=== PATIENT | male | born 1960 | race Caucasian/White ===

== ENCOUNTER 2017-03-30 06:51 | Inpatient (IN) ==
[2017-03-30] MEDS ORDERED: 0.9 % Sodium Chloride 1,000 ML IVC ONE (06:58)
[2017-03-30] MEDS ORDERED: 0.9 % Sodium Chloride 1,000 ML ONE (07:00)
[2017-03-30] MEDS ORDERED: Pantoprazole 40 MG VIAL IVP ONE (07:03)
[2017-03-30] MEDS ORDERED: Octreotide 50 MCG/ML SYRINGE IVP ONE (07:07)
[2017-03-30] MEDS: Pantoprazole 40 MG in 0.9 % Sodium Chloride Mini Bag 100 ML IVC SCH ×4 (07:09→22:09)
--- NOTE | 2017-03-30 07:13 | Emergency Department Note ---
START Narrative - START START: I examined this patient and my medical decision-making was reviewed with the Resident Physician. I agree with the documented findings, disposition and treatment plan as described except to the extent set forth below. Patient to ED vomiting bright red blood. Onset around 4 AM this morning. History of a similar episode a couple of months ago where he had a scope and was found to have varices. On examination he is awake alert no distress. He was found hypotensive by EMS, however he is normotensive here with a systolic blood pressure 110. Plan. Labs type and cross. Will discuss with GI. Admit. Patient's hemoglobin was 7. Requiring blood transfusion. Hemodynamically stable. Discussed with GI who plans to scope. Patient admitted to hospitalist. 40 minutes of critical care exclusive of separately billable procedures.
[2017-03-30] MEDS ORDERED: Ondansetron 4 MG/2 ML VIAL IVP ONE (07:27)
--- NOTE | 2017-03-30 07:27 | Emergency Department Note ---
Disposition Clinical Impression: Upper GI bleeding Syncope Qualifiers: Syncope type: unspecified Qualified Code(s): R55 - Syncope and collapse Disposition: Admitted As Inpatient Condition: Fair Referrals: NONE,PCP [Non-Partnered Physician] - Forms: ED Satisfaction Letter General Adult HPI - General Chief complaint: ED Nausea/Vomiting/Diarrhea Stated complaint: vomiting blood Time Seen by Provider: 03/30/17 06:56 Source: patient, family, EMS Limitations: no limitations Nursing Notes Reviewed: Yes Vital Signs Reviewed: Yes - History of Present Illness HPI Narrative: Patient here for evaluation of hematemesis. 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 Patient's episode began at 3 AM. Patient has had 4 episodes of bright red blood. Patient had 2 episodes which she describes as having clots. Patient has had recent alcohol and NSAID use. NSAIDs secondary to over- the-counter cold medicine. Patient describes dark stools which have been related to previous GI bleed as well as recent iron supplement use. Initial blood pressure from the squad was 86/40. Repeat blood pressure shows 113/80. Heart rate of 86. Patient in no acute distress. Patient has had no episodes of vomiting in the emergency department during initial evaluation. No abdominal tenderness. Some mild abdominal ecchymosis without history of injections however he did have a recent hospital stay - consistent with subcutaneous injection. No abdominal tenderness. Pain Scale: 0 - Related Data Home Medications Medication Instructions Recorded Confirmed Ferrous Fumarate [Ferrocite] 324 mg PO DAILY 03/30/17 03/30/17 Previous Rx's Medication Instructions Recorded Folic Acid 1 mg PO DAILY #30 tablet 01/29/17 Multivitamin [Multivitamins] 1 each PO DAILY #30 capsule 01/29/17 Omeprazole [PriLOSEC] 40 mg PO DAILY #60 cap 01/29/17 Thiamine (B-1) [Vitamin B-1] 100 mg PO DAILY #30 tablet 01/29/17 Allergies Allergy/AdvReac Type Severity Reaction Status Date / Time No Known Allergies Allergy Verified 11/12/15 17:00 Review of Systems: CONSTITUTIONAL: No weight loss, fever, chills, weakness or fatigue. HEENT: Eyes: No visual changes. Ears, Nose, Throat: No hearing loss, difficulty talking or unable to swallow. SKIN: No rash or itching. CARDIOVASCULAR: Syncope No chest pain, chest pressure or chest discomfort. No palpitations or edema. RESPIRATORY: No shortness of breath, cough or sputum. GASTROINTESTINAL: GI bleeding No anorexia, nausea, vomiting or diarrhea. No abdominal pain GENITOURINARY: No burning on urination or hematuria. NEUROLOGICAL: No headache, dizziness, syncope, paralysis, ataxia, numbness or tingling in the extremities. No change in bowel or bladder control. MUSCULOSKELETAL: No muscle pain, back pain, joint pain or stiffness. Past Medical History - Past Medical History Medical history: Reports: CVA, hypertension Psychiatric history: Reports: no psych history - Social History Smoking Status: Current every day smoker Smokeless Tobacco Status: No Alcohol use: Reports: heavy, recent Drug use: Reports: none Physical Exam General appearance: NAD, conversant Eyes: Pale, jaundice, moist conjunctivae; PERRL HENT: Atraumatic; oropharynx clear with moist mucous membranes and no mucosal ulcerations Neck: Normal inspection; Trachea midline; FROM, supple Lungs: CTA, with normal respiratory effort and no intercostal retractions CV: RRR, no MRGs Abdomen: Soft, non-tender; no rebound or gaurding Extremities: No peripheral edema or extremity lymphadenopathy Skin: Normal temperature; no rash, ulcers or lesions Psych: Appropriate mood and affect Neuro: alert and oriented to person, place and time - General Limitations: no limitations General appearance: alert, in no apparent distress Course Course Narrative: Patient states that he had a syncopal episode where he felt like he was going to pass out. He hit his head on the wall on the way down. Describes sliding down the wall. CT scan of head ordered. - Consultations Consultation #1: Discussed with Dr. Farooq. Recommends Ocreotide bolus and drip. Recommends Rocephin 1 g. Vital Signs Temperature 97.7 F 03/30/17 06:54 Pulse Rate 94 03/30/17 06:54 Respiratory Rate 18 03/30/17 06:54 Blood Pressure 105/68 03/30/17 06:54 O2 Sat by Pulse Oximetry 99 03/30/17 06:54 Temperature 97.7 F 03/30/17 06:54 Pulse Rate 88 03/30/17 08:32 Respiratory Rate 18 03/30/17 08:32 Blood Pressure 117/62 03/30/17 08:32 O2 Sat by Pulse Oximetry 100 03/30/17 08:32 Oxygen Delivery Oxygen Delivery Nasal Cannula Medical Decision Making - Medical Records Medical records reviewed: Yes I reviewed the patient's medical records. - Lab Data Lab results reviewed: Yes I reviewed the patient's lab results. Result diagrams: 03/30/17 07:15 03/30/17 07:15 Lab Results 03/30/17 03/30/17 03/30/17 Range/Units 07:15 07:15 07:15 WBC 7.7 (4.3-11.1) K/mcL RBC 2.32 L (4.19-5.50) M/mcL Hgb 7.5 L (12.9-16.9) g/dL Hct 24.4 L (37.5-50.1) % MCV 105.2 H (83.0-100.0) fL MCH 32.3 (28.0-33.3) pg MCHC 30.7 L (31.6-35.5) g/dL RDW 14.6 H (11.5-14.5) % Plt Count 103 L (140-400) K/mcL MPV 11.1 (9.4-12.4) fL Immature Gran % 0.4 (0-4) % Seg Neutrophils % 83.9 % Lymphocytes % 8.8 % Monocytes % 5.2 % Eosinophils % 0.9 % Basophils % 0.8 % Neutrophils # 6.5 (1.6-8.9) K/mcL Lymphocytes # 0.7 (0.6-4.6) K/mcL Monocytes # 0.4 (0.0-1.3) K/mcL Eosinophils # 0.1 (0.0-0.6) K/mcL Basophils # 0.1 (0.0-0.2) K/mcL Immature Plt Fraction 6.7 H (1.1-6.1) % PT 14.4 H (9.4-12.1) Seconds INR 1.3 APTT 29.1 (26.0-36.0) Seconds Sodium 142 (136-145) mEq/L Potassium 3.8 (3.5-4.5) mEq/L Chloride 113 H (98-109) mEq/L Carbon Dioxide 18 L (19-29) mEq/L BUN 28 H (8-26) mg/dL Creatinine 1.12 (0.72-1.25) mg/dL Est GFR ( Amer) > 60 (> 60) Est GFR (Non-Af Amer) > 60 (> 60) BUN/Creatinine Ratio 25 (6-26) Glucose 219 H (70-99) mg/dL Calculated Osmolality 306 H (280-300) Calcium 7.9 L (8.6-10.8) mg/dL Total Bilirubin 0.7 (0.2-1.2) mg/dL Direct Bilirubin 0.4 (0.0-0.5) mg/dL Indirect Bilirubin 0.3 (0.0-1.2) mg/dL AST 94 H (5-34) Units/L ALT 33 (0-55) Units/L Alkaline Phosphatase 145 H (38-126) Units/L Serum Total Protein 5.8 L (6.0-8.3) g/dL Albumin 2.4 L (3.5-5.0) g/dL Globulin 3.4 (2.4-3.5) g/dL Albumin/Globulin Ratio 0.7 L (1.1-2.2) Lipase 35 (8-78) Units/L Ethyl Alcohol 31 H (0-10) mg/dL - Radiology Data Radiology results reviewed: Yes I reviewed the patient's radiology results. - EKG Data EKG #1 EKG attestation: Yes I reviewed and interpreted this EKG. EKG results narrative: EKG shows sinus rhythm with ventricular rate of 87 bpm. SD 134. QRS 90. QTC 447. The significant elevations or depressions. No significant changes from previous EKG of 01/26/2017.
[2017-03-30 07:28] LABS: Eosinophils % 0.9 %; Mean Corpuscular Volume 105.2 fL (83.0-100.0)
[2017-03-30 07:29] LABS: Basophils # 0.1 K/mcL (0.0-0.2); Basophils % 0.8 %; Eosinophils # 0.1 K/mcL (0.0-0.6); Hematocrit 24.4 % (37.5-50.1); Immature Granulocytes % 0.4 % (0-4); Immature Platelets 6.7 % (1.1-6.1); Lymphocytes # 0.7 K/mcL (0.6-4.6); Lymphocytes % 8.8 %; Mean Corpuscular HGB Conc 30.7 g/dL (31.6-35.5); Mean Corpuscular Hemoglobin 32.3 pg (28.0-33.3); Mean Platelet Volume 11.1 fL (9.4-12.4); Monocytes # 0.4 K/mcL (0.0-1.3); Monocytes % 5.2 %; Neutrophils # 6.5 K/mcL (1.6-8.9); Platelet Count 103 K/mcL (140-400); Red Blood Count 2.32 M/mcL (4.19-5.50); Red Cell Distribution Width 14.6 % (11.5-14.5); Segmented Neutrophils % 83.9 %
[2017-03-30 07:35] LABS: INR 1.3; Prothrombin Time 14.4 Seconds (9.4-12.1)
[2017-03-30 07:37] LABS: Activated Partial Thrombo Time 29.1 Seconds (26.0-36.0)
[2017-03-30 07:45] LABS: Alanine Aminotransferase 33 Units/L (0-55); Albumin 2.4 g/dL (3.5-5.0); Albumin/Globulin Ratio 0.7 (1.1-2.2); Alkaline Phosphatase 145 Units/L (38-126); Aspartate Amino Transferase 94 Units/L (5-34); BUN/Creatinine Ratio 25 (6-26); Bilirubin,Direct 0.4 mg/dL (0.0-0.5); Bilirubin,Indirect 0.3 mg/dL (0.0-1.2); Bilirubin,Total 0.7 mg/dL (0.2-1.2); Blood Urea Nitrogen 28 mg/dL (8-26); Calcium 7.9 mg/dL (8.6-10.8); Carbon Dioxide 18 mEq/L (19-29); Chloride 113 mEq/L (98-109); Ethanol 31 mg/dL (0-10); Globulin 3.4 g/dL (2.4-3.5); Glucose 219 mg/dL (70-99); Lipase 35 Units/L (8-78); Osmolality,Calculated 306 (280-300); Potassium 3.8 mEq/L (3.5-4.5); Sodium 142 mEq/L (136-145); Total Protein 5.8 g/dL (6.0-8.3); eGFR For African Americans > 60 (> 60); eGFR For Non-African Americans > 60 (> 60)
[2017-03-30] MEDS: Octreotide 400 MCG in 0.9 % Sodium Chloride 100 ML IVC SCH ×2 (07:50→16:59)
[2017-03-30 07:54] LABS: Hemoglobin 7.5 g/dL (12.9-16.9)
[2017-03-30] MEDS ORDERED: Naloxone 0.4 MG/ML INJ IVP PRN (08:30)
[2017-03-30] MEDS ORDERED: *HR* LORazepam 2 MG/ML VIAL IVP PRN ×3 (08:35)
--- NOTE | 2017-03-30 09:03 | Internal Med History&Physical ---
Date of Encounter: 03/30/17 Time of Encounter: 08:00 Assessment and Plan (1) Alcoholism Current visit: Yes Status: Acute Will place patient on CIWA protocol. Banana bag IV daily 3 days. (2) DVT prophylaxis Current visit: Yes Status: Acute EPCD (3) Acute blood loss anemia Current visit: No Status: Acute Will give patient 2 units blood transfusion as he has active bleeding. (4) Upper GI bleed Current visit: No Status: Acute Due to cirrhosis and esophageal vein varicosis. - Nothing by mouth. - Vitals are stable now. Will closely monitor vitals every 30 minutes. - IV fluid. - Blood transfusion for 2 units ordered. - Protonix drip, octreotide drip started. - Continuous cardiac monitoring. - Closely monitor H&H. - GI consult informed by ER physician. (5) Liver cirrhosis, alcoholic Current visit: No Status: Acute Continue alcoholism protocol Qualifiers: Ascites presence: without ascites Qualified Code(s): K70.30 - Alcoholic cirrhosis of liver without ascites (6) Tobacco abuse Current visit: No Status: Acute Smoking cessation education. Nicotine patch ordered Internal Medicine - H&P: HPI Chief complaint: Vomiting blood Admitted From: Home Plans for Post Hospital Care: Home History of present illness: Mr. Mcdowell is a 57 year old male with history of alcoholic cirrhosis, esophageal veins varicosis, history of GI bleeding present to ER for vomiting blood since this morning. Patient said he has noticed black stool for about 3 days. He thought that due to the iron pill he is taking. This morning about the 3:30 AM, he started nausea and vomited fresh blood. He vomited 4 times at home, and 1 time in the emergency room. Patient feels dizziness when he stand up. He denies abdominal pain, chest pain. He has mild shortness of breath. He has diarrhea, 3 bowel movement in last 24 hours, stool is dark. I discussed the CODE STATUS with patient. He is full code. Past Med Surg Social Fam HX - Past Medical History Medical history: CVA, hypertension Psychiatric history: no psych history - Social History Smoking Status: Current every day smoker Smokeless Tobacco Status: No Alcohol use: heavy, recent Drug use: none Internal Medicine - H&P: Meds Folic Acid 1 mg PO DAILY #30 tablet 01/29/17 [Rx] Multivitamin [Multivitamins] 1 each PO DAILY #30 capsule 01/29/17 [Rx] Omeprazole [PriLOSEC] 40 mg PO DAILY #60 cap 01/29/17 [Rx] Thiamine (B-1) [Vitamin B-1] 100 mg PO DAILY #30 tablet 01/29/17 [Rx] Ferrous Fumarate [Ferrocite] 324 mg PO DAILY 03/30/17 [History] 3 Allergy/AdvReac Type Severity Reaction Status Date / Time No Known Allergies Allergy Verified 11/12/15 17:00 All Systems PM: A 10-system review of systems was performed and is negative for pertinent findings except as documented above in the HPI. - Constitutional Vitals: Temp Pulse Resp BP Pulse Ox 97.7 F 88 18 117/62 100 03/30/17 06:54 03/30/17 08:32 03/30/17 08:32 03/30/17 08:32 03/30/17 08:32 General appearance: Present: A&O X 3, no acute distress, answers questions appropriately - Head Head exam: Present: atraumatic, normocephalic - Eye Eye exam: Present: PERRL, conjuntiva pink, sclera anicteric Pupils: Present: PERRL - Neck Neck exam general surgery: Present: supple, trachea midline. Absent: lymphadenopathy - Respiratory Respiratory exam: Present: CTAB. Absent: accessory muscle use, rales, rhonchi, wheezes - Cardiovascular Cardiovascular exam: Present: RRR, +S1, +S2. Absent: diastolic murmur, gallop, rubs, systolic murmur - GI/Abdominal GI/Abdominal exam: Present: normal bowel sounds, soft, no peritoneal signs. Absent: distended, tenderness - Extremities Exam Extremities exam: Present: warm, radial pulses palpable and symmetrical. Absent : calf tenderness, cyanotic, pedal edema - Neurological Exam Neurological exam: Present: CN II-XII intact, oriented X3, no focal deficits. Absent: pronater drift, facial droop, speech deficit - Skin Skin exam: Present: dry, intact Internal Med - H&P Results - Labs CBC & Chem 7: 03/30/17 07:15 03/30/17 07:15 Labs: Short CBC 03/30/17 Range/Units 07:15 WBC 7.7 (4.3-11.1) K/mcL Hgb 7.5 L (12.9-16.9) g/dL Hct 24.4 L (37.5-50.1) % Plt Count 103 L (140-400) K/mcL Neutrophils # 6.5 (1.6-8.9) K/mcL BMP 03/30/17 07:15 Sodium 142 Potassium 3.8 Chloride 113 H Carbon Dioxide 18 L BUN 28 H Creatinine 1.12 Glucose 219 H Calcium 7.9 L Liver Function 03/30/17 Range/Units 07:15 Total Bilirubin 0.7 (0.2-1.2) mg/dL Direct Bilirubin 0.4 (0.0-0.5) mg/dL AST 94 H (5-34) Units/L ALT 33 (0-55) Units/L Alkaline Phosphatase 145 H (38-126) Units/L Albumin 2.4 L (3.5-5.0) g/dL - Impressions ITS Impressions Head CT 03/30/17 07:04 IMPRESSION: No acute intracranial abnormality. Small old lacunar infarcts versus prominent perivascular spaces in the bilateral basal ganglia, stable. Mild parenchymal volume loss. Mild chronic microvascular disease. Sinus mucosal disease. D/ / Ga Guerrier MD / Ga Guerrier MD Interpreting Provider: Ga Guerrier MD
--- NOTE | 2017-03-30 11:27 | Gastroenterology Consult Note ---
<Dustin Casillas - Last Filed: 03/30/17 11:24> Date of Encounter: 03/30/17 Time of Encounter: 11:00 - Assessment and plan (1) Anemia Current Visit: No Status: Acute Assessment and plan: Hgb 7.5 on admission and 2 units PRBC have been ordered. Monitor CBC and transfuse PRBC as needed. Plan for EGD today. Keep patient NPO. Qualifiers: Anemia type: unspecified type Qualified Code(s): D64.9 - Anemia, unspecified (2) Upper GI bleed Current Visit: No Status: Acute Assessment and plan: Likely secondary to varices. EGD 01/28/2017 with type I gastroesophageal varices without bleeding. Will complete EGD today. (3) Liver cirrhosis, alcoholic Current Visit: No Status: Acute Assessment and plan: Meld-Na 10, Child-Alexandre class B, DF 18.6. Liver ultrasound on 01/27/2017 showed cirrhosis and no mass. AFP 4 on 01/27/2017. Lifestyle Changes: 1. Total abstinence from alcohol including social drinking. 2. No smoking 3. Gradual loss of weight 4. Drink at least 3 cups of coffee due to its antioxidant effects in the liver, it reduces risk of HCC and advance fibrosis 5. If needed, use less than 2 g/day of Tylenol (in divided doses). 6. Vaccination for Hep A, B, Pneumococcus if not already received and yearly influenza vaccination by PCP 7. Avoid NSAIDS as can cause kidney damage 8. Avoid benzodiazepines and other sedatives such as anti-histamines, narcotics etc. as can cause encephalopathy or confusion 9. Take a late carbohydrate meal supplement as it reduces glucose production from protein breakdown and thus improves nutrition. Qualifiers: Ascites presence: without ascites Qualified Code(s): K70.30 - Alcoholic cirrhosis of liver without ascites - Time Spent With Patient Total time spent is greater than 50% in coordination of care (as documented) at patient's floor/unit and/or counseling patient: GI History of Present Illness - Data of Consult Patient: known to practice within the last 3 years Consult date: 03/30/17 Requesting Physician: Tucker Galicia MD - Consult Narrative Reason for consult: Upper GI bleed, cirrhosis History of present illness: Mr. Mcdowell is a 57 year old male with PMHx of CVA, HTN, alcoholic liver cirrhosis who drinks 3-4 glasses of wine 3-4 days per week presented to the ED vomiting blood since this morning. He reports black stool for the past 3-4 days , which he attributed to the iron pill he is taking. Around 3:30 AM he started vomiting bright red blood. He vomited 4 times at home and one time in the ED. He denies fevers, chills, chest pain, abdominal pain. Patient states he has been taking Aleve daily for the past week due to a "cold". Hgb 7.5 on admission and 2 units PRBC have been ordered. Octreotide drip has been started. Procedures: EGD 01/28/2017 Dr. 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 Campos 02/09/2014: Tubular adenoma descending colon, internal hemorrhoids, mild diverticulosis EGD 01/15/2014 Dr. Beal: Monilial esophagitis, gastritis NSAIDs: None Anticoagulation: None Past Med Surg Social Fam HX - Past Medical History Medical history: CVA, hypertension Psychiatric history: no psych history - Social History Smoking Status: Current every day smoker Smokeless Tobacco Status: No Alcohol use: heavy, recent Drug use: none - Gastrointestinal Gastrointestinal: Present: as per HPI - Constitutional Constitutional: as per HPI - EENT Eyes: as per HPI Ears: Present: as per HPI Nose, mouth and throat: Present: as per HPI - Cardiovascular Cardiovascular ROS: Present: as per HPI - Respiratory Respiratory IM: Present: as per HPI - Genitourinary Genitourinary: Absent: change in color, Urinary frequency - Neurological ROS Neurological GI: Present: as per HPI - Hematologic/Lymphatic Hematologic/Lymphatic pediatric: Present: as per HPI - Musculoskeletal Musculoskeletal ROS GI: Present: as per HPI - Integumentary Integumentary GI: Present: as per HPI - Psychiatric ROS Psychiatric GI: Present: as per HPI - Endocrine Endocrine IM: Present: as per HPI - Constitutional Vitals: Temp Pulse Resp BP Pulse Ox 98.5 F 82 18 128/71 100 03/30/17 10:43 03/30/17 11:00 03/30/17 10:43 03/30/17 11:00 03/30/17 11:00 General appearance: Present: cooperative, A&O X 3, no acute distress, answers questions appropriately - Head Head exam: Present: atraumatic, normocephalic - Eye Eye exam: Present: normal appearance, sclera anicteric - ENT ENT exam: Present: mucous membranes dry - Neck Neck exam general surgery: Present: normal inspection, trachea midline - Respiratory Respiratory exam: Present: CTAB. Absent: rales, rhonchi - Cardiovascular Cardiovascular exam: Present: RRR, +S1, +S2 - GI/Abdominal GI/Abdominal exam: Present: soft, no peritoneal signs. Absent: distended, firm , guarding, tenderness - Rectal Rectal exam: Present: deferred - Extremities Exam Extremities exam: Present: warm - Neurological Exam Neurological exam: Present: no focal deficits - Psychiatric Psychiatric exam: Present: normal affect, normal mood - Skin Skin exam: Present: dry, intact, normal color, warm Results - Labs CBC & Chem 7: 03/30/17 07:15 03/30/17 07:15 Labs: Last Result Calcium 7.9 mg/dL (8.6-10.8) L 03/30/17 07:15 Entire Visit Hgb 7.5 g/dL (12.9-16.9) L 03/30/17 07:15 Hct 24.4 % (37.5-50.1) L 03/30/17 07:15 PT 14.4 Seconds (9.4-12.1) H 03/30/17 07:15 Total Bilirubin 0.7 mg/dL (0.2-1.2) 03/30/17 07:15 AST 94 Units/L (5-34) H 03/30/17 07:15 ALT 33 Units/L (0-55) 03/30/17 07:15 Lipase 35 Units/L (8-78) 03/30/17 07:15 - ABG ABG results: PT/INR, D-dimer PT 14.4 Seconds (9.4-12.1) H 03/30/17 07:15 Consult Discharge Plan - Plan Referrals: Miguel Khan DO [Primary Care Provider] - <Chad Farooq - Last Filed: 03/30/17 17:08> Date of Encounter: 03/30/17 Time of Encounter: 17:00 - Time Spent With Patient Total time spent is greater than 50% in coordination of care (as documented) at patient's floor/unit and/or counseling patient: GI History of Present Illness - Data of Consult Requesting Physician: Tucker Galicia MD - Consult Narrative History of present illness: Mr. Mcdowell is a 57 year old male - Constitutional Vitals: Temp Pulse Resp BP Pulse Ox 98.5 F 71 18 135/70 98 03/30/17 16:25 03/30/17 16:25 03/30/17 16:25 03/30/17 16:25 03/30/17 16:25 Results - Labs CBC & Chem 7: 03/30/17 07:15 03/30/17 07:15 Labs: Last Result Calcium 7.9 mg/dL (8.6-10.8) L 03/30/17 07:15 Entire Visit Hgb 7.5 g/dL (12.9-16.9) L 03/30/17 07:15 Hct 24.4 % (37.5-50.1) L 03/30/17 07:15 PT 14.4 Seconds (9.4-12.1) H 03/30/17 07:15 Total Bilirubin 0.7 mg/dL (0.2-1.2) 03/30/17 07:15 AST 94 Units/L (5-34) H 03/30/17 07:15 ALT 33 Units/L (0-55) 03/30/17 07:15 Lipase 35 Units/L (8-78) 03/30/17 07:15 - ABG ABG results: PT/INR, D-dimer PT 14.4 Seconds (9.4-12.1) H 03/30/17 07:15 - Attending Attestation I examined this patient and my medical decision-making was reviewed with the Resident Physician. I agree with the documented findings, disposition and treatment plan as described except to the extent set forth below. Pt with Hx of gastric varices now with UGI bleed. Rec; Follow h/H Octreotide infusion If any bleeding from gastric varices then will need TIP/embolization
[2017-03-30] MEDS: Nicotine 21 MG PATCH.TD24 TD SCH (11:52)
--- NOTE | 2017-03-30 12:13 | Anesthesia Evaluation PreOp ---
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 History: CVA Other Medical History: Hepatic (alcoholic liver cirrhosis), GERD, Other ( esophageal varices) Anesthesia History: No Prior Anesthetic Complications, Past Anesthesia Alcohol Use: heavy, recent Drug use: none Medications and Allergies Folic Acid 1 mg PO DAILY #30 tablet 01/29/17 [Rx] Multivitamin [Multivitamins] 1 each PO DAILY #30 capsule 01/29/17 [Rx] Omeprazole [PriLOSEC] 40 mg PO DAILY #60 cap 01/29/17 [Rx] Thiamine (B-1) [Vitamin B-1] 100 mg PO DAILY #30 tablet 01/29/17 [Rx] Ferrous Fumarate [Ferrocite] 324 mg PO DAILY 03/30/17 [History] 3 Allergy/AdvReac Type Severity Reaction Status Date / Time No Known Allergies Allergy Verified 11/12/15 17:00 - Meds/Allergy Pre-op Review Medications Reviewed: Yes Allergies Reviewed: Yes Beta Blockers on Current Med List: No Anesthesia Results - Labs 03/30/17 07:15 03/30/17 07:15 - Imaging EKG: report reviewed (01/26/2017 SR) Additional studies: 02/09/2014 Echo Impressions: LVEF 65%. Normal left ventricular size, thickness and systolic function. There is evidence of mild diastolic dysfunction of the left ventricle. Normal left atrial size. Mildly dilated right ventricle. Normal right ventricular function. Normal right atrial size. No significant valvular dysfunction. No significant TR gradient to detect pumonary hypertension. The IVC is dilated. No PFO with agitated saline. Anesthesia Exam Vital Signs/O2 Sat/Glucose, Most Recent Temp Pulse Resp BP Pulse Ox 98.5 F 82 18 128/71 100 03/30/17 10:43 03/30/17 11:00 03/30/17 10:43 03/30/17 11:00 03/30/17 11:00 Blood Glucose* 148 Height: 5'9''/1.75 m Weight: 186 lbs/84.368 kg NPO (# of Hours): 8 Pain Scale: 0 Pain Scale Used: Numeric (1 - 10) - HEENT Pupil (Motor): EOMI Mallampati: II Teeth: Normal Oral Opening: Greater than 3 - ALLOCATIONS CLERK LOC: Oriented ALLOCATIONS CLERK Motor: Normal RUE, Normal LUE, Normal RLE, Normal LLE, Normal Face ALLOCATIONS CLERK Sensory: Normal: RUE, LUE, RLE, LLE, Face - Cardiac Rhythm: Regular Murmur: None - Pulmonary Breath Sounds: bilateral Clear Respiratory Effort: Symmetrical Anesthesia Assess/Plan ASA Score: 3 Modified [place] Scale for Level of Consciousness: Cooperative, oriented, and tranquil Anesthetic Plan: MAC Monitoring Plan: Standard Monitors
[2017-03-30] MEDS ORDERED: 0.9 % Sodium Chloride 250 ML ONE (14:00)
[2017-03-30] MEDS: Ondansetron 4 MG/2 ML VIAL IVP PRN (16:31)
[2017-03-30] MEDS ORDERED: *HR* FentaNYL (PF) 100 MCG/2 ML VIAL IVP PRN (17:05)
[2017-03-30] MEDS ORDERED: *HR* Midazolam HCl 5 MG/5 ML VIAL IVP ONE (17:07)
[2017-03-30] MEDS ORDERED: *HR* FentaNYL (PF) 100 MCG/2 ML VIAL ONE (17:08)
[2017-03-30] MEDS: *HR* Midazolam HCl 5 MG/5 ML VIAL IVP PRN ×2 (17:11→17:14)
[2017-03-30] MEDS: 0.9 % Sodium Chloride 1,000 ML IVC SCH ×2 (18:11→21:40)
[2017-03-30] MEDS: Thiamine (B-1) 100 MG, Folic Acid 1 MG, MVI, adult with vitamin K 10 ML in 0.9 % Sodi... IVPB SCH (20:39)
[2017-03-30] MEDS: *HR* Promethazine 25 MG/ML VIAL IVP PRN (22:08)
[2017-03-30 22:45] LABS: Hematocrit 28.9 % (37.5-50.1)
[2017-03-30 22:46] LABS: Hemoglobin 9.2 g/dL (12.9-16.9)
[2017-03-31] MEDS: Octreotide 400 MCG in 0.9 % Sodium Chloride 100 ML IVC SCH ×3 (00:13→17:08)
[2017-03-31] MEDS: 0.9 % Sodium Chloride 1,000 ML IVC SCH ×3 (02:50→18:40)
[2017-03-31] MEDS: Pantoprazole 40 MG in 0.9 % Sodium Chloride Mini Bag 100 ML IVC SCH ×4 (03:24→18:39)
[2017-03-31 05:34] LABS: BUN/Creatinine Ratio 28 (6-26); Blood Urea Nitrogen 25 mg/dL (8-26); Calcium 7.8 mg/dL (8.6-10.8); Carbon Dioxide 23 mEq/L (19-29); Chloride 115 mEq/L (98-109); Glucose 135 mg/dL (70-99); Magnesium 1.5 mg/dL (1.6-2.6); Osmolality,Calculated 300 (280-300); Phosphorous 2.7 mg/dL (2.3-4.7); Potassium 4.2 mEq/L (3.5-4.5); Sodium 142 mEq/L (136-145); eGFR For African Americans > 60 (> 60); eGFR For Non-African Americans > 60 (> 60)
[2017-03-31 06:48] LABS: Basophils # 0.1 K/mcL (0.0-0.2); Eosinophils # 0.2 K/mcL (0.0-0.6); Eosinophils % 3.4 %; Hemoglobin 8.8 g/dL (12.9-16.9); Immature Granulocytes % 0.2 % (0-4); Immature Platelets 6.7 % (1.1-6.1); Lymphocytes # 1.2 K/mcL (0.6-4.6); Lymphocytes % 23.4 %; Mean Corpuscular HGB Conc 31.4 g/dL (31.6-35.5); Mean Corpuscular Hemoglobin 31.7 pg (28.0-33.3); Mean Corpuscular Volume 100.7 fL (83.0-100.0); Mean Platelet Volume 10.9 fL (9.4-12.4); Monocytes # 0.6 K/mcL (0.0-1.3); Monocytes % 10.8 %; Neutrophils # 3.2 K/mcL (1.6-8.9); Red Blood Count 2.78 M/mcL (4.19-5.50); Red Cell Distribution Width 16.5 % (11.5-14.5); Segmented Neutrophils % 61.2 %
--- NOTE | 2017-03-31 06:50 | Electrocardiograph Report ---
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
[2017-03-31 06:53] LABS: Platelet Count 77 K/mcL (140-400)
[2017-03-31] MEDS ORDERED: Erythromycin Lactobionate 250 MG in 0.9 % Sodium Chloride 100 ML IVPB ONE (08:30)
--- NOTE | 2017-03-31 09:56 | Anesthesia Evaluation PreOp ---
Date of Encounter: 03/31/17 Time of Encounter: 09:53 - Past History Planned Operation: EGD (upper GI bleed, hx gastric varices) Cardiac History: HTN (? 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 yesterday's EGD exam was poor due to copious blood in stomach) Anesthesia History: No Prior Anesthetic Complications Alcohol Use: heavy, recent Drug use: none Medications and Allergies Folic Acid 1 mg PO DAILY #30 tablet 01/29/17 [Rx] Multivitamin [Multivitamins] 1 each PO DAILY #30 capsule 01/29/17 [Rx] Omeprazole [PriLOSEC] 40 mg PO DAILY #60 cap 01/29/17 [Rx] Thiamine (B-1) [Vitamin B-1] 100 mg PO DAILY #30 tablet 01/29/17 [Rx] Ferrous Fumarate [Ferrocite] 324 mg PO DAILY 03/30/17 [History] 3 Allergy/AdvReac Type Severity Reaction Status Date / Time No Known Allergies Allergy Verified 11/12/15 17:00 - Meds/Allergy Pre-op Review Medications Reviewed: Yes Allergies Reviewed: Yes Beta Blockers on Current Med List: No Anesthesia Results - Labs 03/31/17 06:37 03/31/17 05:13 - Imaging EKG: report reviewed, image reviewed (SINUS RHYTHM) Anesthesia Exam Last Vital Signs Temp 98.6 F 03/31/17 07:35 Pulse 73 03/31/17 07:40 Resp 18 03/31/17 07:00 BP 127/78 03/31/17 07:00 Pulse Ox 94 03/31/17 07:00 Weight: 85 KG NPO (# of Hours): >> 8 HRS - HEENT Pupil (Motor): Pupils equal, EOMI Mallampati: II Teeth: Normal Oral Opening: Greater than 3 - 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
[2017-03-31] MEDS ORDERED: Lidocaine -MPF 2% 2 ML VIAL ONE (14:11)
[2017-03-31] MEDS ORDERED: Propofol 500 MG/50 ML INFUS..BTL ONE (14:11)
[2017-03-31] MEDS: Nicotine 21 MG PATCH.TD24 TD SCH (14:46)
--- NOTE | 2017-03-31 15:10 | Anesthesia Evaluation Post Op ---
Date of Encounter: 03/31/17 Time of Encounter: 15:08 - Vital Signs Vital Signs: see ICU flow charts. - Airway Airway: Non-obstructed - Cardiovascular Baseline Rhythm - Mental Status Mental Status: Alert & Oriented, Answers Appropriately - Pain Pain Scale used: Cortez-Mahmood (Faces) - Nausea Vomiting Nausea Vomiting: Not Present
[2017-03-31] MEDS ORDERED: Tetracaine/Benzocaine/Butamben 200MG/SPRAY (100SPY/BOT) MM ONE (15:21)
--- NOTE | 2017-03-31 17:39 | Internal Med Progress Note ---
Date of Encounter: 04/01/17 Time of Encounter: 17:37 - Assessment and plan (1) Acute blood loss anemia Current Visit: No Status: Acute Assessment and plan: s/p 2 U PRBC..Hb @ 8.8 now cont close monitoring Q8hr Hb / Hct Cont IV hydration (2) Upper GI bleed Current Visit: No Status: Acute Assessment and plan: s/p EGD - showed portal hypertensive gastropathy no esophageal varices noticed continue Octreotide gtt Cont Protonix gtt on clear liquid diet now NPO after mid night GI is on board Scheduled for IR hemostasis in AM (3) Portal hypertensive gastropathy Current Visit: Yes Status: Acute (4) Portal venous hypertension Current Visit: Yes Status: Acute (5) Alcohol dependence Current Visit: Yes Status: Acute Assessment and plan: Counseled to quit drinking will place him on Banana bag daily cont CIWA protocol Ativan PRN Qualifiers: Qualified Code(s): F10.221 - Alcohol dependence with intoxication delirium (6) Liver cirrhosis, alcoholic Current Visit: No Status: Acute Assessment and plan: Counseled to quit drinking cont close monitoring of his LFT's Qualifiers: Ascites presence: without ascites Qualified Code(s): K70.30 - Alcoholic cirrhosis of liver without ascites (7) Tobacco abuse Current Visit: No Status: Acute Assessment and plan: Counseled to quit on nicotine patch - Subjective Interval history: Mr. Mcdowell is a 57 year old male with history of alcoholic cirrhosis, esophageal veins varicosis, history of GI bleeding present to ER for vomiting blood since this morning. Patient said he has noticed black stool for about 3 days. He thought that due to the iron pill he is taking. This morning about the 3:30 AM, he started nausea and vomited fresh blood. He vomited 4 times at home, and 1 time in the emergency room. Pt was admitted to ICU for severe acute GI bleed and acute alcohol intoxication. Currently he is alert, awake and resting comfortably. Denied any CP. Started tolerating clear liquid diet well. - Constitutional Vitals: Temp Pulse Resp BP Pulse Ox 98.5 F 80 20 105/61 98 03/31/17 11:33 03/31/17 15:00 03/31/17 15:00 03/31/17 15:00 03/31/17 15:00 General appearance: Present: A&O X 3, no acute distress, answers questions appropriately - Head Head exam: Present: atraumatic, normal inspection - Respiratory Respiratory exam: Present: decreased breath sounds, wheezes. Absent: respiratory distress, rhonchi - Cardiovascular Cardiovascular exam: Present: RRR, +S1, +S2. Absent: systolic murmur - GI/Abdominal GI/Abdominal exam: Present: soft. Absent: rebound, rigid, tenderness - Extremities Exam Extremities exam: Absent: calf tenderness, pedal edema, tenderness - Neurological Exam Neurological exam: Present: alert, oriented X3 - Psychiatric Psychiatric exam: Present: anxious Internal Medicine: Result - Labs CBC & Chem 7: 04/01/17 04:20 04/01/17 04:20 Labs: Short CBC 03/30/17 03/31/17 Range/Units 22:38 06:37 WBC 5.3 (4.3-11.1) K/mcL Hgb 9.2 L D 8.8 L (12.9-16.9) g/dL Hct 28.9 L 28.0 L (37.5-50.1) % Plt Count 77 L (140-400) K/mcL Neutrophils # 3.2 (1.6-8.9) K/mcL BMP 03/31/17 05:13 Sodium 142 Potassium 4.2 Chloride 115 H Carbon Dioxide 23 BUN 25 Creatinine 0.89 Glucose 135 H Calcium 7.8 L - ABG Interpretation ABG results: PT/INR, D-dimer PT 14.4 Seconds (9.4-12.1) H 03/30/17 07:15 - VTE Documentation of Mechanical Device: Intermittent pneumatic compression device Consult Discharge Plan - Plan Referrals: Miguel Khan DO [Primary Care Provider] -
[2017-03-31 18:17] LABS: Hemoglobin 9.4 g/dL (12.9-16.9)
[2017-03-31] MEDS: Thiamine (B-1) 100 MG, Folic Acid 1 MG, MVI, adult with vitamin K 10 ML in 0.9 % Sodi... IVPB SCH (18:48)
[2017-04-01] MEDS: Pantoprazole 40 MG in 0.9 % Sodium Chloride Mini Bag 100 ML IVC SCH ×4 (00:17→16:14)
[2017-04-01] MEDS: Octreotide 400 MCG in 0.9 % Sodium Chloride 100 ML IVC SCH ×4 (01:09→18:16)
[2017-04-01] MEDS: 0.9 % Sodium Chloride 1,000 ML IVC SCH ×3 (02:40→17:10)
[2017-04-01] MEDS ORDERED: Magnesium Sulfate 2 GM in D5% in Water 100 ML IVPB PRN (03:27)
[2017-04-01] MEDS ORDERED: Calcium Gluconate 1,000 MG in D5% in Water 100 ML IVPB PRN (03:27)
[2017-04-01] MEDS ORDERED: Potassium Phosphate 44 MEQ in 0.9 % Sodium Chloride 250 ML IVPB PRN (03:27)
[2017-04-01 04:32] LABS: Immature Granulocytes % 0.2 % (0-4)
[2017-04-01 04:34] LABS: Basophils # 0.1 K/mcL (0.0-0.2); Basophils % 1.7 %; Eosinophils # 0.2 K/mcL (0.0-0.6); Eosinophils % 3.9 %; Hematocrit 27.6 % (37.5-50.1); Hemoglobin 8.8 g/dL (12.9-16.9); Immature Platelets 8.2 % (1.1-6.1); Lymphocytes # 1.1 K/mcL (0.6-4.6); Lymphocytes % 24.1 %; Mean Corpuscular HGB Conc 31.9 g/dL (31.6-35.5); Mean Corpuscular Hemoglobin 31.8 pg (28.0-33.3); Mean Corpuscular Volume 99.6 fL (83.0-100.0); Mean Platelet Volume 11.4 fL (9.4-12.4); Monocytes # 0.6 K/mcL (0.0-1.3); Neutrophils # 2.7 K/mcL (1.6-8.9); Red Blood Count 2.77 M/mcL (4.19-5.50); Red Cell Distribution Width 15.7 % (11.5-14.5); Segmented Neutrophils % 58.1 %
[2017-04-01 04:36] LABS: Platelet Count 84 K/mcL (140-400)
[2017-04-01 04:50] LABS: Alanine Aminotransferase 41 Units/L (0-55); Albumin 2.4 g/dL (3.5-5.0); Albumin/Globulin Ratio 0.6 (1.1-2.2); Alkaline Phosphatase 102 Units/L (38-126); Aspartate Amino Transferase 102 Units/L (5-34); BUN/Creatinine Ratio 16 (6-26); Calcium 7.5 mg/dL (8.6-10.8); Carbon Dioxide 24 mEq/L (19-29); Chloride 111 mEq/L (98-109); Globulin 3.8 g/dL (2.4-3.5); Glucose 114 mg/dL (70-99); Magnesium 1.4 mg/dL (1.6-2.6); Osmolality,Calculated 289 (280-300); Potassium 4.1 mEq/L (3.5-4.5); Sodium 139 mEq/L (136-145); Total Protein 6.2 g/dL (6.0-8.3); eGFR For African Americans > 60 (> 60); eGFR For Non-African Americans > 60 (> 60)
[2017-04-01 04:51] LABS: Bilirubin,Total 1.5 mg/dL (0.2-1.2); Blood Urea Nitrogen 13 mg/dL (8-26)
[2017-04-01] MEDS: Nicotine 21 MG PATCH.TD24 TD SCH (08:44)
[2017-04-01] MEDS ORDERED: Heparin 1,000 UNITS/500 mL NS 500 ML ONE ×2 (13:41→15:23)
[2017-04-01] MEDS ORDERED: ceFAZolin 2,000 MG in D5% in Water (Mini-Bag+) 100 ML IVPB ONE (13:54)
--- NOTE | 2017-04-01 14:13 | Pre-Sedation Evaluation ---
Pre-sedation evaluation - Pre-sedation checklist Date of procedure: 04/01/17 Procedure: TIPS Recent Vitals: Last Vital Signs Temp 98.1 F 04/01/17 11:50 Pulse 78 04/01/17 13:00 Resp 14 04/01/17 13:00 BP 166/78 04/01/17 13:00 Pulse Ox 94 04/01/17 13:00 H&P (including ROS) documented in medical record: Yes Previous reaction to sedatives/anesthetics: No Dietary Status: NPO after Midnight Dentition: No loose teeth or bridges Possible difficult airway: No ASA Classification *see protocol: CLASS II-Mild systemic disease Plan of Care: Pt appropriate candidate for procedure/moderate/conscious sedation , Risks/benefits of procedure/sedation discussed w/ patient/family, If not NPO; Risk of intake outweiged by necessity to perform procedure
[2017-04-01] MEDS ORDERED: 0.9 % Sodium Chloride 500 ML ONE (14:15)
[2017-04-01] MEDS: *HR* FentaNYL (PF) 100 MCG/2 ML VIAL IVP PRN ×5 (14:23→15:10)
[2017-04-01] MEDS: *HR* Midazolam HCl 2 MG/2 ML VIAL IVP PRN ×4 (14:24→15:13)
--- NOTE | 2017-04-01 15:51 | Internal Med Progress Note ---
Date of Encounter: 04/01/17 Time of Encounter: 15:49 - Assessment and plan (1) Upper GI bleed Current Visit: No Status: Acute Assessment and plan: s/p EGD - showed portal hypertensive gastropathy no esophageal varices noticed continue Octreotide gtt will switch to Protonix 40 IV BID Resume diet after TIPS procedure GI is on board Since he is medically stable now..will transfer him to Tele today (2) Acute blood loss anemia Current Visit: No Status: Acute Assessment and plan: s/p 2 U PRBC..Hb @ 8.8 now cont close monitoring with daily Hb / Hct No more hematemesis (3) Portal hypertensive gastropathy Current Visit: Yes Status: Acute (4) Portal venous hypertension Current Visit: Yes Status: Acute Assessment and plan: Scheduled for TIPS procedure today (5) Alcohol dependence Current Visit: Yes Status: Acute Assessment and plan: Counseled to quit drinking Since he is tolerating PO Intake well will d/c banana bag and IVF switch to PO meds cont CIWA protocol Ativan PRN Qualifiers: Qualified Code(s): F10.221 - Alcohol dependence with intoxication delirium (6) Liver cirrhosis, alcoholic Current Visit: No Status: Acute Assessment and plan: Counseled to quit drinking cont close monitoring of his LFT's Qualifiers: Ascites presence: without ascites Qualified Code(s): K70.30 - Alcoholic cirrhosis of liver without ascites (7) Tobacco abuse Current Visit: No Status: Acute Assessment and plan: Counseled to quit on nicotine patch - Subjective Interval history: Mr. Mcdowell is a 57 year old male with history of alcoholic cirrhosis, esophageal veins varicosis, history of GI bleeding present to ER for vomiting blood since this morning. Patient said he has noticed black stool for about 3 days. He thought that due to the iron pill he is taking. This morning about the 3:30 AM, he started nausea and vomited fresh blood. He vomited 4 times at home, and 1 time in the emergency room. Pt was admitted to ICU for severe acute GI bleed and acute alcohol intoxication. Currently he is alert, awake and resting comfortably. Denied any CP. Pt did tolerate clear liquid diet well y/d. He is scheduled for TIPS procedure today. - Constitutional Vitals: Temp Pulse Resp BP Pulse Ox 98.1 F 78 24 154/91 99 04/01/17 11:50 04/01/17 15:30 04/01/17 15:30 04/01/17 15:30 04/01/17 15:30 General appearance: Present: A&O X 3, no acute distress, answers questions appropriately - Head Head exam: Present: atraumatic, normal inspection - Respiratory Respiratory exam: Present: decreased breath sounds, wheezes. Absent: respiratory distress, rhonchi - Cardiovascular Cardiovascular exam: Present: RRR, +S1, +S2. Absent: systolic murmur - GI/Abdominal GI/Abdominal exam: Present: normal bowel sounds, soft. Absent: distended, rebound, rigid, tenderness - Extremities Exam Extremities exam: Absent: calf tenderness, pedal edema, tenderness - Psychiatric Psychiatric exam: Present: anxious Internal Medicine: Result - Labs CBC & Chem 7: 04/01/17 04:20 04/01/17 04:20 Labs: Short CBC 03/31/17 04/01/17 Range/Units 17:55 04:20 WBC 4.7 (4.3-11.1) K/mcL Hgb 9.4 L 8.8 L (12.9-16.9) g/dL Hct 29.0 L 27.6 L (37.5-50.1) % Plt Count 84 L (140-400) K/mcL Neutrophils # 2.7 (1.6-8.9) K/mcL BMP 04/01/17 04:20 Sodium 139 Potassium 4.1 Chloride 111 H Carbon Dioxide 24 BUN 13 D Creatinine 0.79 Glucose 114 H Calcium 7.5 L Liver Function 04/01/17 Range/Units 04:20 Total Bilirubin 1.5 H D (0.2-1.2) mg/dL AST 102 H (5-34) Units/L ALT 41 (0-55) Units/L Alkaline Phosphatase 102 (38-126) Units/L Albumin 2.4 L (3.5-5.0) g/dL - ABG Interpretation ABG results: PT/INR, D-dimer PT 14.4 Seconds (9.4-12.1) H 03/30/17 07:15 - VTE Documentation of Mechanical Device: Intermittent pneumatic compression device Consult Discharge Plan - Plan Referrals: Miguel Khan DO [Primary Care Provider] -
--- NOTE | 2017-04-01 15:55 | IR Procedure Note ---
Date of procedure: 04/01/17 Consent Obtained: Written consent Timeout: Correct patient and procedure verified, Correct site verified, Time out performed, Skin prep completed Indications: gastric varices, portal hypertension Procedure Performed: TIPS, variceal embolization Site/Technique: TIPS from hepatic vein to right portal vein, embolized varices with coils Results/Findings: very large gastric varices. portal vein thrombosis Estimated blood loss (cc): 10 Complications: None; Tolerated procedure well Post Procedure Treatment Plan: dc to ICU, TIPS US in 5 days, may want to rescope
[2017-04-01] MEDS ORDERED: *HR* LORazepam 1 MG TABLET PO PRN (16:03)
[2017-04-01] MEDS: Pantoprazole 40 MG VIAL IVP SCH (18:17)
[2017-04-01] MEDS: Acetaminophen 325 MG TABLET PO PRN (19:49)
[2017-04-01] MEDS: *HR* Promethazine 25 MG/ML VIAL IVP PRN (19:49)
[2017-04-01] MEDS ORDERED: Octreotide 400 MCG in 0.9 % Sodium Chloride 100 ML IVC SCH (23:45)
[2017-04-02] MEDS: 0.9 % Sodium Chloride 1,000 ML IVC SCH ×2 (00:23→10:05)
[2017-04-02] MEDS: Ondansetron 4 MG/2 ML VIAL IVP PRN (00:32)
[2017-04-02] MEDS: Acetaminophen 325 MG TABLET PO PRN (02:48)
[2017-04-02 05:19] LABS: Basophils # 0.1 K/mcL (0.0-0.2); Basophils % 0.6 %; Eosinophils # 0.2 K/mcL (0.0-0.6); Eosinophils % 1.6 %; Hematocrit 32.5 % (37.5-50.1); Immature Granulocytes % 0.3 % (0-4); Lymphocytes # 0.9 K/mcL (0.6-4.6); Mean Corpuscular HGB Conc 33.5 g/dL (31.6-35.5); Mean Corpuscular Hemoglobin 32.4 pg (28.0-33.3); Mean Corpuscular Volume 96.7 fL (83.0-100.0); Mean Platelet Volume 10.4 fL (9.4-12.4); Monocytes # 1.1 K/mcL (0.0-1.3); Monocytes % 10.6 %; Platelet Count 129 K/mcL (140-400); Red Blood Count 3.36 M/mcL (4.19-5.50); Red Cell Distribution Width 14.6 % (11.5-14.5); Segmented Neutrophils % 77.9 %
[2017-04-02 05:25] LABS: Alanine Aminotransferase 84 Units/L (0-55); Albumin/Globulin Ratio 0.7 (1.1-2.2); Alkaline Phosphatase 161 Units/L (38-126); Aspartate Amino Transferase 221 Units/L (5-34); BUN/Creatinine Ratio 10 (6-26); Blood Urea Nitrogen 7 mg/dL (8-26); Calcium 8.2 mg/dL (8.6-10.8); Carbon Dioxide 24 mEq/L (19-29); Chloride 103 mEq/L (98-109); Globulin 4.4 g/dL (2.4-3.5); Glucose 118 mg/dL (70-99); Magnesium 1.3 mg/dL (1.6-2.6); Osmolality,Calculated 279 (280-300); Potassium 3.6 mEq/L (3.5-4.5); Sodium 135 mEq/L (136-145); Total Protein 7.3 g/dL (6.0-8.3); eGFR For African Americans > 60 (> 60); eGFR For Non-African Americans > 60 (> 60)
[2017-04-02 05:31] LABS: Albumin 2.9 g/dL (3.5-5.0); Bilirubin,Total 3.3 mg/dL (0.2-1.2)
[2017-04-02 06:00] LABS: Neutrophils # 7.9 K/mcL (1.6-8.9)
[2017-04-02 06:11] LABS: Hemoglobin 10.9 g/dL (12.9-16.9)
[2017-04-02] MEDS: Pantoprazole 40 MG VIAL IVP SCH ×2 (06:21→17:26)
[2017-04-02] MEDS ORDERED: Magnesium Sulfate 2 GM in D5% in Water 100 ML IVPB ONE (08:35)
[2017-04-02] MEDS ORDERED: Lactulose Oral Soln 20 GM/30 ML UDC PO PRN (08:36)
--- NOTE | 2017-04-02 08:40 | Internal Med Progress Note ---
Date of Encounter: 04/02/17 Time of Encounter: 08:38 - Assessment and plan (1) Upper GI bleed Current Visit: No Status: Acute Assessment and plan: s/p EGD - showed portal hypertensive gastropathy no esophageal varices noticed continue Octreotide gtt Cont Protonix 40 IV BID s/p TIPS GI is on board Resumed full liquid diet today (2) Acute blood loss anemia Current Visit: No Status: Acute Assessment and plan: s/p 2 U PRBC stable and improved Hb @ 10.9 cont close monitoring with daily Hb / Hct No more hematemesis (3) Portal hypertensive gastropathy Current Visit: Yes Status: Acute Assessment and plan: s/p TIPS and Vascular embolization of Gastric varices (4) Portal venous hypertension Current Visit: Yes Status: Acute Assessment and plan: s/p TIPS on 04/02/17 Cont close monitoring of Ammonia placed on Lactulose (5) Alcohol dependence Current Visit: Yes Status: Acute Assessment and plan: Counseled to quit drinking Since he is tolerating PO Intake d/c d banana bag and IVF switch to PO meds cont CIWA protocol Ativan PRN Qualifiers: Qualified Code(s): F10.229 - Alcohol dependence with intoxication, unspecified (6) Liver cirrhosis, alcoholic Current Visit: No Status: Acute Assessment and plan: Counseled to quit drinking cont close monitoring of his LFT's Qualifiers: Ascites presence: without ascites Qualified Code(s): K70.30 - Alcoholic cirrhosis of liver without ascites (7) Tobacco abuse Current Visit: No Status: Acute Assessment and plan: Counseled to quit on nicotine patch - Subjective Interval history: Mr. Mcdowell is a 57 year old male with history of alcoholic cirrhosis, esophageal veins varicosis, history of GI bleeding present to ER for vomiting blood since this morning. Patient said he has noticed black stool for about 3 days. He thought that due to the iron pill he is taking. This morning about the 3:30 AM, he started nausea and vomited fresh blood. He vomited 4 times at home, and 1 time in the emergency room. Pt was admitted to ICU for severe acute GI bleed and acute alcohol intoxication. Currently he is alert, awake O x3 and resting comfortably. Denied any CP. Pt did tolerated clear liquid diet before TIPS. - Constitutional Vitals: Temp Pulse Resp BP Pulse Ox 98.7 F 84 18 146/87 96 04/02/17 07:53 04/02/17 07:53 04/02/17 07:53 04/02/17 07:53 04/02/17 07:53 General appearance: Present: A&O X 3, no acute distress, answers questions appropriately - Head Head exam: Present: atraumatic, normal inspection - Respiratory Respiratory exam: Present: decreased breath sounds, wheezes. Absent: rales, respiratory distress, rhonchi - Cardiovascular Cardiovascular exam: Present: RRR, +S1, +S2. Absent: systolic murmur - GI/Abdominal GI/Abdominal exam: Present: distended, soft. Absent: rebound, rigid, tenderness - Extremities Exam Extremities exam: Absent: calf tenderness, pedal edema, tenderness - Neurological Exam Neurological exam: Present: alert, oriented X3 Internal Medicine: Result - Labs CBC & Chem 7: 04/02/17 04:58 04/02/17 04:58 Labs: Short CBC 04/02/17 Range/Units 04:58 WBC 10.1 D (4.3-11.1) K/mcL Hgb 10.9 L D (12.9-16.9) g/dL Hct 32.5 L (37.5-50.1) % Plt Count 129 L D (140-400) K/mcL Neutrophils # 7.9 (1.6-8.9) K/mcL BMP 04/02/17 04:58 Sodium 135 L Potassium 3.6 Chloride 103 Carbon Dioxide 24 BUN 7 L Creatinine 0.73 Glucose 118 H Calcium 8.2 L Liver Function 04/02/17 Range/Units 04:58 Total Bilirubin 3.3 H D (0.2-1.2) mg/dL AST 221 H (5-34) Units/L ALT 84 H (0-55) Units/L Alkaline Phosphatase 161 H (38-126) Units/L Albumin 2.9 L D (3.5-5.0) g/dL - ABG Interpretation ABG results: PT/INR, D-dimer PT 14.4 Seconds (9.4-12.1) H 03/30/17 07:15 - VTE Documentation of Mechanical Device: Intermittent pneumatic compression device Consult Discharge Plan - Plan Referrals: Miguel Khan DO [Primary Care Provider] -
[2017-04-02] MEDS: Thiamine (B-1) 100 MG TABLET PO SCH (10:04)
[2017-04-02] MEDS: Magnesium Oxide 400 MG TABLET PO SCH ×2 (10:04→19:42)
[2017-04-02] MEDS: Folic Acid 1 MG TABLET PO SCH (10:04)
[2017-04-02] MEDS: Nicotine 21 MG PATCH.TD24 TD SCH (10:04)
[2017-04-02] MEDS: Octreotide 400 MCG in 0.9 % Sodium Chloride 100 ML IVC SCH ×4 (19:26→22:06)
[2017-04-03] MEDS: 0.9 % Sodium Chloride 1,000 ML IVC SCH (00:56)
[2017-04-03 02:56] LABS: Basophils # 0.1 K/mcL (0.0-0.2); Basophils % 0.6 %; Eosinophils # 0.2 K/mcL (0.0-0.6); Eosinophils % 1.9 %; Hematocrit 29.3 % (37.5-50.1); Hemoglobin 9.6 g/dL (12.9-16.9); Immature Granulocytes % 0.3 % (0-4); Lymphocytes # 1.2 K/mcL (0.6-4.6); Lymphocytes % 12.1 %; Mean Corpuscular HGB Conc 32.8 g/dL (31.6-35.5); Mean Corpuscular Hemoglobin 32.5 pg (28.0-33.3); Mean Corpuscular Volume 99.3 fL (83.0-100.0); Mean Platelet Volume 10.2 fL (9.4-12.4); Monocytes # 1.6 K/mcL (0.0-1.3); Neutrophils # 6.8 K/mcL (1.6-8.9); Platelet Count 119 K/mcL (140-400); Red Blood Count 2.95 M/mcL (4.19-5.50); Red Cell Distribution Width 14.9 % (11.5-14.5); Segmented Neutrophils % 69.1 %
[2017-04-03 03:12] LABS: Alanine Aminotransferase 98 Units/L (0-55); Albumin 2.5 g/dL (3.5-5.0); Albumin/Globulin Ratio 0.6 (1.1-2.2); Alkaline Phosphatase 158 Units/L (38-126); Aspartate Amino Transferase 187 Units/L (5-34); BUN/Creatinine Ratio 8 (6-26); Bilirubin,Total 3.9 mg/dL (0.2-1.2); Blood Urea Nitrogen 6 mg/dL (8-26); Calcium 7.6 mg/dL (8.6-10.8); Carbon Dioxide 22 mEq/L (19-29); Chloride 106 mEq/L (98-109); Globulin 4.1 g/dL (2.4-3.5); Glucose 132 mg/dL (70-99); Magnesium 1.5 mg/dL (1.6-2.6); Osmolality,Calculated 279 (280-300); Potassium 3.6 mEq/L (3.5-4.5); Sodium 135 mEq/L (136-145); Total Protein 6.6 g/dL (6.0-8.3); eGFR For African Americans > 60 (> 60); eGFR For Non-African Americans > 60 (> 60)
[2017-04-03] MEDS: Octreotide 400 MCG in 0.9 % Sodium Chloride 100 ML IVC SCH ×2 (04:46→10:24)
[2017-04-03] MEDS: Pantoprazole 40 MG VIAL IVP SCH (05:33)
[2017-04-03 07:15] VITALS: BP 149/68
[2017-04-03] MEDS: Nicotine 21 MG PATCH.TD24 TD SCH (08:04)
[2017-04-03] MEDS: Folic Acid 1 MG TABLET PO SCH (08:04)
[2017-04-03] MEDS: Thiamine (B-1) 100 MG TABLET PO SCH (08:04)
[2017-04-03] MEDS: Magnesium Oxide 400 MG TABLET PO SCH (08:04)
--- NOTE | 2017-04-03 08:57 | Discharge Summary ---
Date of Encounter: 04/03/17 Time of Encounter: 08:52 - Discharge Diagnosis (1) Upper GI bleed Priority: Primary Status: Acute (2) Acute blood loss anemia Priority: Primary Status: Acute (3) Portal hypertensive gastropathy Priority: Secondary Status: Acute (4) Portal venous hypertension Priority: Secondary Status: Acute (5) Alcohol dependence Priority: Secondary Status: Acute Qualifiers: Qualified Code(s): F10.229 - Alcohol dependence with intoxication, unspecified (6) Liver cirrhosis, alcoholic Priority: Secondary Status: Acute Qualifiers: Ascites presence: without ascites Qualified Code(s): K70.30 - Alcoholic cirrhosis of liver without ascites (7) Tobacco abuse Priority: Secondary Status: Acute - Discharge Medications Prescriptions: Lactulose 10 gm PO BID PRN #1500 ml PRN Reason: Constipation LORazepam [Ativan] 0.5 mg PO BID PRN #15 tablet PRN Reason: Anxiety Magnesium Oxide [Mag-Ox] 400 mg PO DAILY #30 tab Nicotine Patch [Nicoderm] 21 mg TD Q24H #30 Propranolol [Inderal] 20 mg PO BID #60 tablet Home Medications: Folic Acid 1 mg PO DAILY #30 tablet 01/29/17 [Rx] Multivitamin [Multivitamins] 1 each PO DAILY #30 capsule 01/29/17 [Rx] Thiamine (B-1) [Vitamin B-1] 100 mg PO DAILY #30 tablet 01/29/17 [Rx] Ferrous Fumarate [Ferrocite] 324 mg PO DAILY 03/30/17 [History] LORazepam [Ativan] 0.5 mg PO BID PRN #15 tablet 04/03/17 [Rx] Lactulose 10 gm PO BID PRN #1500 ml 04/03/17 [Rx] Magnesium Oxide [Mag-Ox] 400 mg PO DAILY #30 tab 04/03/17 [Rx] Nicotine Patch [Nicoderm] 21 mg TD Q24H #30 04/03/17 [Rx] Omeprazole [PriLOSEC] 40 mg PO BID #60 cap 04/03/17 [Rx] Propranolol [Inderal] 20 mg PO BID #60 tablet 04/03/17 [Rx] Allergies/Adverse Reactions: 3 Allergy/AdvReac Type Severity Reaction Status Date / Time No Known Allergies Allergy Verified 11/12/15 17:00 Procedures/tests Complete & Pending: Procedures Performed prior 72 hours Category Date Time Status IR portal venogram wo HDM [IR] Routine Exams 04/01/17 Taken IR emboliz occlusion artery [IR] Routine IR 04/01/17 Taken IR emboliz treatment S&I [IR] Routine IR 04/01/17 Taken IR perc transhepat w hd eval [IR] Routine IR 04/01/17 Taken IR stent placement ea vessel [IR] Routine IR 04/01/17 Taken IR us guide needle place [IR] Routine IR 04/01/17 Taken IR venogram hepatic wdge press [IR] Routine IR 04/01/17 Taken Date of admission: 03/30/17 09:37 Primary care physician: Miguel Khan, - Patient Status Disposition: Home, Self-Care Condition: Good Overall status at discharge: patient is back to baseline - Discharge Instructions Follow Up With: Miguel Khan DO [Primary Care Provider] - 04/08/17 9:30 am Additional Instructions: Need to f/u with PCP in one week Need to f/u with GI Dr. PENA in 1 week Need to go U/S of Abdomen for f/u after recent TIPS procedure. - Diet and Activity Activity: increase activity as tolerated Diet: low salt diet Hospital course: Mr. Mcdowell is a 57 year old male with history of alcoholic cirrhosis, esophageal veins varicosis, history of GI bleeding present to ER for vomiting blood since this morning. Patient said he has noticed black stool for about 3 days. He thought that due to the iron pill he is taking. This morning about the 3:30 AM, he started nausea and vomited fresh blood. He vomited 4 times at home, and 1 time in the emergency room. Pt was admitted to ICU for severe acute GI bleed and acute alcohol intoxication. He did go for emeregency EGD which did not show any esophageal varices, however he did have portal hypertensive gastropathy. He was started on Octreotide gtt and Protonix gtt. He was given 2 U PRBC, since then his Hb stayed stable around 10.0. He did o for f/u EGD which conforms the same, with out any active bleeding. GI recommend for TIPS procedure and Gastric varicel embolization. IR did TIPS and Varicel vascular embolization for gastric varics was done 04/02/17. Pt started tolerating PO intake well, denied any CP / SOB and NO abd pain. Counseled the pt to quit drinking alcohol. Also counseled to quit smoking. Recommend to f/u with GI from [facility] for possible liver transplantation. I talk to pt's brother also about this and explained to him about current care. - Time Spent with Patient Total time spent providing and/or coordinating discharge services: Greater than 30 minutes (Spent 45 minutes on this patient's discharge summary due to complex medical problems and patient needed a lot of education regarding discharge instructions) - Constitutional Vitals: Temp Pulse Resp BP Pulse Ox 98.5 F 74 17 149/68 96 04/03/17 07:13 04/03/17 07:13 04/03/17 07:13 04/03/17 07:13 04/03/17 07:13 General appearance: Present: A&O X 3, no acute distress, answers questions appropriately - Head Head exam: Present: atraumatic, normal inspection - Respiratory Respiratory exam: Present: decreased breath sounds. Absent: rales, respiratory distress, rhonchi, wheezes - Cardiovascular Cardiovascular exam: Present: RRR, +S1, +S2. Absent: diastolic murmur, gallop, rubs, systolic murmur - GI/Abdominal GI/Abdominal exam: Present: distended, normal bowel sounds, soft. Absent: rebound, rigid, tenderness - Extremities Exam Extremities exam: Absent: calf tenderness, pedal edema, tenderness - Neurological Exam Neurological exam: Present: alert, oriented X3 - Psychiatric Psychiatric exam: Present: normal affect, normal mood - VTE Documentation of Mechanical Device: Intermittent pneumatic compression device
--- NOTE | 2017-04-03 11:35 | Gastroenterology Progress Note ---
Date of Encounter: 04/03/17 Time of Encounter: 10:15 - Assessment and plan (1) Upper GI bleed Status: Acute Assessment and plan: EGD with portal hypertensive gastropathy, Chantelle-Naik tears and a large amount of blood in the stomach. 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 TIPS procedure with embolization completed 04/01. Follow up with Dr. Pena in 2 weeks and plan for repeat EGD. (2) Anemia Status: Acute Assessment and plan: Hgb stable. Qualifiers: Anemia type: unspecified type Qualified Code(s): D64.9 - Anemia, unspecified (3) Liver cirrhosis, alcoholic Status: Acute Assessment and plan: Meld-Na 10, Child-Alexandre class B, DF 18.6. Liver ultrasound on 01/27/2017 showed cirrhosis and no mass. AFP 4 on 01/27/2017. Lifestyle Changes: 1. Total abstinence from alcohol including social drinking. 2. No smoking 3. Gradual loss of weight 4. Drink at least 3 cups of coffee due to its antioxidant effects in the liver, it reduces risk of HCC and advance fibrosis 5. If needed, use less than 2 g/day of Tylenol (in divided doses). 6. Vaccination for Hep A, B, Pneumococcus if not already received and yearly influenza vaccination by PCP 7. Avoid NSAIDS as can cause kidney damage 8. Avoid benzodiazepines and other sedatives such as anti-histamines, narcotics etc. as can cause encephalopathy or confusion 9. Take a late carbohydrate meal supplement as it reduces glucose production from protein breakdown and thus improves nutrition. Qualifiers: Ascites presence: without ascites Qualified Code(s): K70.30 - Alcoholic cirrhosis of liver without ascites - Time Spent With Patient Total time spent is greater than 50% in coordination of care (as documented) at patient's floor/unit and/or counseling patient: - Subjective Interval history: Pt sitting on side of bed, reports feeling well, and states he is ready to go home. He denies any nausea, vomiting, hematemesis, melena, or hematochezia. He states he tolerated solid food this AM. - Constitutional Vitals: Temp Pulse Resp BP Pulse Ox 98.5 F 74 17 149/68 96 04/03/17 07:13 04/03/17 07:13 04/03/17 07:13 04/03/17 07:13 04/03/17 07:13 General appearance: Present: cooperative, A&O X 3, no acute distress, answers questions appropriately - Head Head exam: Present: atraumatic, normocephalic - Eye Eye exam: Present: normal appearance, sclera anicteric - ENT ENT exam: Present: mucous membranes moist - Neck Neck exam general surgery: Present: normal inspection, trachea midline - Respiratory Respiratory exam: Present: CTAB. Absent: rales, rhonchi - Cardiovascular Cardiovascular exam: Present: RRR, +S1, +S2 - GI/Abdominal GI/Abdominal exam: Present: soft, no peritoneal signs. Absent: distended, firm , guarding, tenderness - Rectal Rectal exam: Present: deferred - Extremities Exam Extremities exam: Present: warm - Neurological Exam Neurological exam: Present: no focal deficits - Psychiatric Psychiatric exam: Present: normal affect, normal mood - Skin Skin exam: Present: dry, intact, normal color, warm Results - Labs CBC & Chem 7: 04/03/17 02:46 04/03/17 02:46 Labs: Last Result Calcium 7.6 mg/dL (8.6-10.8) L 04/03/17 02:46 Entire Visit Hgb 9.6 g/dL (12.9-16.9) L 04/03/17 02:46 Hct 29.3 % (37.5-50.1) L 04/03/17 02:46 PT 14.4 Seconds (9.4-12.1) H 03/30/17 07:15 Total Bilirubin 3.9 mg/dL (0.2-1.2) H 04/03/17 02:46 AST 187 Units/L (5-34) H 04/03/17 02:46 ALT 98 Units/L (0-55) H 04/03/17 02:46 Ammonia 93 mcmol/L (18-72) H 04/03/17 02:46 Lipase 35 Units/L (8-78) 03/30/17 07:15 - ABG ABG results: PT/INR, D-dimer PT 14.4 Seconds (9.4-12.1) H 03/30/17 07:15 - Impressions Impressions Embolization 04/01/17 00:00 IMPRESSION: Successful placement of a Transjugular Intrahepatic Portosystemic Shunt. Portal thrombosis was also stented all the way to the portal confluence. Successful variceal transcatheter embolization. RECOMMENDATIONS: Baseline TIPS ultrasound with color flow doppler and velocity measurements in one week D/ / 04/03/2017 09:25:40 Stephani Hinson MD / [email or web address] Interpreting Provider: Stephani Hinson MD Embolization 04/01/17 00:00 IMPRESSION: Successful placement of a Transjugular Intrahepatic Portosystemic Shunt. Portal thrombosis was also stented all the way to the portal confluence. Successful variceal transcatheter embolization. RECOMMENDATIONS: Baseline TIPS ultrasound with color flow doppler and velocity measurements in one week D/ / 04/03/2017 09:25:40 Stephani Hinson MD / ole Interpreting Provider: Stephani Hinson MD Guidance Needle Placement Ultrasound 04/01/17 00:00 IMPRESSION: Successful placement of a Transjugular Intrahepatic Portosystemic Shunt. Portal thrombosis was also stented all the way to the portal confluence. Successful variceal transcatheter embolization. RECOMMENDATIONS: Baseline TIPS ultrasound with color flow doppler and velocity measurements in one week D/ / 04/03/2017 09:25:40 Stephani Hinson MD / ole Interpreting Provider: Stephani Hinson MD Percutaneous Transhepatic Portography 04/01/17 00:00 IMPRESSION: Successful placement of a Transjugular Intrahepatic Portosystemic Shunt. Portal thrombosis was also stented all the way to the portal confluence. Successful variceal transcatheter embolization. RECOMMENDATIONS: Baseline TIPS ultrasound with color flow doppler and velocity measurements in one week D/ / 04/03/2017 09:25:40 Stephani Hinson MD / ole Interpreting Provider: Stephani Hinson MD Vascular Stent Procedure 04/01/17 00:00 IMPRESSION: Successful placement of a Transjugular Intrahepatic Portosystemic Shunt. Portal thrombosis was also stented all the way to the portal confluence. Successful variceal transcatheter embolization. RECOMMENDATIONS: Baseline TIPS ultrasound with color flow doppler and velocity measurements in one week D/ / 04/03/2017 09:25:40 Stephani Hinson MD / ole Interpreting Provider: Stephani Hinson MD Venogram 04/01/17 00:00 IMPRESSION: Successful placement of a Transjugular Intrahepatic Portosystemic Shunt. Portal thrombosis was also stented all the way to the portal confluence. Successful variceal transcatheter embolization. RECOMMENDATIONS: Baseline TIPS ultrasound with color flow doppler and velocity measurements in one week D/ / 04/03/2017 09:25:40 Setphani Hinson MD / ole Interpreting Provider: Stephani Hinson MD Venogram 04/01/17 00:00 IMPRESSION: Successful placement of a Transjugular Intrahepatic Portosystemic Shunt. Portal thrombosis was also stented all the way to the portal confluence. Successful variceal transcatheter embolization. RECOMMENDATIONS: Baseline TIPS ultrasound with color flow doppler and velocity measurements in one week D/ / 04/03/2017 09:25:40 Stephani Hinson MD / ole Interpreting Provider: Stephani Hinson MD - VTE Documentation of Mechanical Device: Intermittent pneumatic compression device Consult Discharge Plan - Plan Instructions: Gastrointestinal Bleeding (DC), Cirrhosis (DC), Hepatic Encephalopathy (DC), Alcohol Use Disorder (DC) Additional Instructions: Need to f/u with PCP in one week Need to f/u with GI Dr. PENA in 1 week Need to go U/S of Abdomen for f/u after recent TIPS procedure. Referrals: Miguel Khan DO [Primary Care Provider] - 04/08/17 9:30 am Chad Pena MD [Partnered Physician] - (web request 04/03/2017) Prescriptions: Lactulose 10 gm PO BID PRN #1500 ml PRN Reason: Constipation LORazepam [Ativan] 0.5 mg PO BID PRN #15 tablet PRN Reason: Anxiety Magnesium Oxide [Mag-Ox] 400 mg PO DAILY #30 tab Nicotine Patch [Nicoderm] 21 mg TD Q24H #30 Propranolol [Inderal] 20 mg PO BID #60 tablet
== END 2017-04-03 11:14 | disposition home or self-care (01) | DRG 405 ==
LOC: EMEROO 06:51 → ICNU 09:28 → 2ANU 04-01 20:16
PROVIDERS: ADMIT Internal Medicine; ATTEND Internal Medicine

== ENCOUNTER 2017-10-13 11:54 | Inpatient (IN) ==
[2017-10-13] MEDS ORDERED: 0.9 % Sodium Chloride 1,000 ML IVC ONE (12:09)
[2017-10-13] MEDS ORDERED: Pantoprazole 40 MG VIAL IVP ONE (12:09)
[2017-10-13 12:41] LABS: Basophils % 0.5 %; Eosinophils # 0.1 K/mcL (0.0-0.6); Hematocrit 21.5 % (37.5-50.1); Immature Granulocytes % 0.3 % (0-4); Lymphocytes # 0.9 K/mcL (0.6-4.6); Lymphocytes % 14.1 %; Mean Corpuscular HGB Conc 27.9 g/dL (31.6-35.5); Mean Corpuscular Hemoglobin 25.4 pg (28.0-33.3); Mean Corpuscular Volume 91.1 fL (83.0-100.0); Mean Platelet Volume 10.9 fL (9.4-12.4); Monocytes # 0.6 K/mcL (0.0-1.3); Monocytes % 9.4 %; Neutrophils # 4.7 K/mcL (1.6-8.9); Platelet Count 200 K/mcL (140-400); Red Blood Count 2.36 M/mcL (4.19-5.50); Red Cell Distribution Width 19.3 % (11.5-14.5); Segmented Neutrophils % 74.7 %
[2017-10-13 12:47] LABS: INR 1.5; Prothrombin Time 16.5 Seconds (9.4-12.1)
[2017-10-13 12:49] LABS: Activated Partial Thrombo Time 30.1 Seconds (26.0-36.0)
[2017-10-13 13:04] LABS: Alanine Aminotransferase 20 Units/L (7-52); Albumin 2.9 g/dL (3.5-5.7); Albumin/Globulin Ratio 0.8 (1.1-2.2); Alkaline Phosphatase 286 Units/L (34-104); Aspartate Amino Transferase 44 Units/L (13-39); BUN/Creatinine Ratio 28 (6-26); Bilirubin,Total 1.3 mg/dL (0.3-1.0); Blood Urea Nitrogen 35 mg/dL (6-20); Calcium 8.5 mg/dL (8.6-10.3); Carbon Dioxide 18 mEq/L (23-29); Chloride 108 mEq/L (98-107); Globulin 3.7 g/dL (2.4-3.5); Glucose 115 mg/dL (70-105); Lipase 28 Units/L (11-82); Osmolality,Calculated 287 (280-300); Potassium 4.5 mEq/L (3.5-5.1); Sodium 134 mEq/L (136-145); Total Protein 6.6 g/dL (6.4-8.9); Troponin I < 0.03 ng/mL (< 0.04); eGFR For African Americans > 60 (> 60); eGFR For Non-African Americans > 60 (> 60)
[2017-10-13 13:08] LABS: Anisocytosis 2+ (Not Present); Hypochromasia Present (Not Present); Microcytosis Present (Not Present); Platelet Estimate Normal (Normal)
--- NOTE | 2017-10-13 13:20 | Emergency Department Note ---
Disposition Clinical Impression: GI bleed Qualifiers: GI bleed type/associated pathology: melena Qualified Code(s): K92.1 - Melena Anemia Qualifiers: Anemia type: unspecified type Qualified Code(s): D64.9 - Anemia, unspecified Disposition: Admitted As Inpatient Condition: Good Referrals: Miguel Khan DO [Primary Care Provider] - Forms: ED Satisfaction Letter Time of Disposition: 15:04 GI Bleed HPI - General Chief complaint: ED GI Bleed Stated complaint: black stool,dizziness Time Seen by Provider: 10/13/17 12:09 Source: patient Limitations: no limitations Nursing Notes Reviewed: Yes Vital Signs Reviewed: Yes - History of Present Illness HPI Narrative: 57 year old male presents to the ED with complaints of black stools and syncope. He states that he has a history of GI bleeds and Fe defeciency anemia and has liver cirrhosis and staets taht he was seen here on Thursday for abdominal pain seocdary to diverticultisi evaluatio and was discharged home. Ptine states that he has had numerous syncopal episodes in the past 5-[address] Farooq has done a procedure to try and stop his GI bleed. PAtient states that his last tranfusion was over 5-6 months ago. PAtinet states taht he feels increasingly weak and thinks his hgb may be around 6 at this time. PAtinet denies chest pain, shortness of breath or hemopytosis. Not currenlty on blood thinners. PAtinet states that 5-6 moths ago he was having active bleeding and was transferred to [facility] for [facility]. - Related Data Home Medications Medication Instructions Recorded Confirmed Ferrous Fumarate [Ferrocite] 324 mg PO DAILY 03/30/17 10/13/17 Furosemide [Lasix] 20 mg PO DAILY 10/13/17 10/13/17 Omeprazole [PriLOSEC] 40 mg PO DAILY 10/13/17 10/13/17 Spironolactone [Aldactone] 100 mg PO DAILY 10/13/17 10/13/17 Previous Rx's Medication Instructions Recorded Folic Acid 1 mg PO DAILY #30 tablet 01/29/17 Multivitamin [Multivitamins] 1 each PO DAILY #30 capsule 01/29/17 Thiamine (B-1) [Vitamin B-1] 100 mg PO DAILY #30 tablet 01/29/17 metroNIDAZOLE [Metronidazole] 500 mg PO Q8HR #30 tablet 10/07/17 Allergies Allergy/AdvReac Type Severity Reaction Status Date / Time No Known Allergies Allergy Verified 10/13/17 12:06 Constitutional: Reports: weakness. Denies: fever, chills, weight change Eyes: Denies: eye pain, eye discharge, vision change ENT ED: Denies: ear pain, throat pain, dental pain, hearing loss, epistaxis, congestion, dysphagia Cardiovascular: Denies: chest pain, palpitations, dyspnea on exertion, edema, syncope Respiratory: Denies: cough, dyspnea, wheezes, hemoptysis, stridor Gastrointestinal: Reports: abdominal pain, melena. Denies: nausea, vomiting, diarrhea, constipation, hematemesis, hematochezia Genitourinary: Denies: urgency, dysuria, frequency, hematuria Musculoskeletal: Denies: back pain, neck pain, arthralgia, myalgia Integumentary: Denies: rash, abrasion, lesions Neurological: Denies: headache, weakness, numbness, paresthesias, confusion, abnormal gait, vertigo Psychiatric: Denies: anxiety, depression, suicidal thoughts, homicidal thoughts , auditory hallucinations, visual hallucinations Endocrine: Denies: fatigue Hematological/Lymphatic: Denies: easy bleeding, easy bruising Allergic/Immunologic: Denies: facial swelling, urticaria Past Medical History - Past Medical History Medical history: Reports: CVA, GERD, GI bleed, hypertension Surgical history: Reports: orthopedic, other Psychiatric history: Reports: no psych history - Social History Smoking Status: Current every day smoker Smokeless Tobacco Status: No Alcohol use: Reports: heavy Drug use: Reports: none Physical Exam - General Limitations: no limitations General appearance: alert, in no apparent distress, other (pale) - Head Head exam: atraumatic, normocephalic, normal inspection - Eye Eye exam: Present: normal appearance, PERRL, EOMI - Expanded Eye Exam Eyelids: bilateral: normal inspection Pupils: Bilateral: regular, round, reactive Sclera/Conjunctival: bilateral: normal inspection (scleral icterus bilateral; mild) - ENT ENT exam: normal exam, normal oropharynx, mucous membranes moist - Expanded ENT Exam External ear exam: Present: normal external inspection Mouth exam: Present: normal external inspection Teeth exam: Present: normal inspection Throat exam: Present: normal inspection - Neck Neck exam: Present: normal inspection, full ROM, trachea midline - Chest Chest inspection: Present: normal inspection, symmetric chest wall rise - Respiratory Respiratory exam: Present: normal lung sounds bilaterally - Cardiovascular Cardiovascular exam: Present: regular rate, normal rhythm, normal heart sounds - Abdominal Exam Abdominal exam: Present: soft, tenderness. Absent: Non-Tender, distention, guarding, rebound, rigidity Abdominal tenderness: Present: diffuse, moderate - Rectal Exam Rectal exam: Present: normal rectal tone, heme (+) stool, black stool, normal prostate. Absent: prostate tenderness - Extremities Exam Extremities exam: Present: normal inspection, full ROM. Absent: tenderness, pedal edema - Expanded Upper Extremity Exam Shoulder exam: Present: normal inspection, full ROM Arm exam: Present: normal inspection, full ROM Elbow exam: Present: normal inspection, full ROM Forearm/Wrist exam: Present: normal inspection, full ROM Hand exam: Present: normal inspection, full ROM Vascular exam: Normal: capillary refill, radial pulse - Expanded Lower Extremity Exam Hip/Pelvis exam: Present: normal inspection, full ROM Upper leg exam: Present: normal inspection, full ROM Knee exam: Present: normal inspection, full ROM Lower leg exam: Present: normal inspection, full ROM Ankle exam: Present: normal inspection, full ROM Foot/toe exam: Present: normal inspection, full ROM Neurovascular/Tendon exam: Absent: motor deficit, sensory deficit, tendon deficit - Back Exam Back exam: Present: normal inspection, full ROM. Absent: tenderness - Neurological Exam Neurological exam: Present: alert, oriented X3 - Expanded Neurological Exam Patient oriented to: Present: person, place, time Coma Scale Eye Opening: Spontaneous Coma Scale Motor Response: Obeys Commands Coma Scale Verbal Response: Oriented Coma Scale Total: 15 - Psychiatric Psychiatric exam: Present: normal affect, normal mood - Skin Skin exam: Present: warm, dry, intact, normal color Course Course Narrative: we will do a GI bleed workup and treat with protonix. Patient zelaya shave a hgb of 6, and we will transfuse 2 units secondary to his hypotension of 85/60. We will also do IVF resusistiation. CT to rule out perforation. - Consultations Consultation #1: discussed case with Dr. Lujan and he accepts patinet for admission. PAtinet has been updated and is agreeable to plan. Time: 15:03 Vital Signs Temperature 97.8 F 10/13/17 12:04 Pulse Rate 111 10/13/17 12:04 Respiratory Rate 18 10/13/17 12:04 Blood Pressure 88/51 10/13/17 12:04 O2 Sat by Pulse Oximetry 100 10/13/17 12:04 Temperature 98.4 F 10/13/17 14:23 Pulse Rate 80 10/13/17 14:23 Respiratory Rate 15 10/13/17 14:23 Blood Pressure 110/58 10/13/17 14:23 O2 Sat by Pulse Oximetry 100 10/13/17 13:18 Oxygen Delivery Oxygen Delivery Room Air GI Bleed - Medical Records Medical records reviewed: Yes I reviewed the patient's medical records. - Lab Data Lab results reviewed: Yes I reviewed the patient's lab results. Result diagrams: 10/13/17 12:16 10/13/17 12:16 Lab Results 10/13/17 10/13/17 10/13/17 Range/Units 12:16 12:16 12:16 WBC 6.3 (4.3-11.1) K/mcL RBC 2.36 L (4.19-5.50) M/mcL Hgb 6.0 L* D (12.9-16.9) g/dL Hct 21.5 L (37.5-50.1) % MCV 91.1 (83.0-100.0) fL MCH 25.4 L (28.0-33.3) pg MCHC 27.9 L (31.6-35.5) g/dL RDW 19.3 H (11.5-14.5) % Plt Count 200 (140-400) K/mcL MPV 10.9 (9.4-12.4) fL Immature Gran % 0.3 (0-4) % Seg Neutrophils % 74.7 % Lymphocytes % 14.1 % Monocytes % 9.4 % Eosinophils % 1.0 % Basophils % 0.5 % Neutrophils # 4.7 (1.6-8.9) K/mcL Lymphocytes # 0.9 (0.6-4.6) K/mcL Monocytes # 0.6 (0.0-1.3) K/mcL Eosinophils # 0.1 (0.0-0.6) K/mcL Basophils # 0.0 (0.0-0.2) K/mcL Platelet Estimate Normal (Normal) Hypochromasia Present A (Not Present) Anisocytosis 2+ A (Not Present) Microcytosis Present A (Not Present) PT 16.5 H (9.4-12.1) Seconds INR 1.5 APTT 30.1 (26.0-36.0) Seconds Sodium 134 L (136-145) mEq/L Potassium 4.5 (3.5-5.1) mEq/L Chloride 108 H (98-107) mEq/L Carbon Dioxide 18 L (23-29) mEq/L BUN 35 H (6-20) mg/dL Creatinine 1.24 (0.70-1.30) mg/dL Est GFR ( Amer) > 60 (> 60) Est GFR (Non-Af Amer) > 60 (> 60) BUN/Creatinine Ratio 28 H (6-26) Glucose 115 H (70-105) mg/dL Calculated Osmolality 287 (280-300) Lactic Acid (0.5-2.2) mmol/L Calcium 8.5 L (8.6-10.3) mg/dL Total Bilirubin 1.3 H (0.3-1.0) mg/dL AST 44 H (13-39) Units/L ALT 20 (7-52) Units/L Alkaline Phosphatase 286 H (34-104) Units/L Troponin I < 0.03 (< 0.04) ng/mL Serum Total Protein 6.6 (6.4-8.9) g/dL Albumin 2.9 L (3.5-5.7) g/dL Globulin 3.7 H (2.4-3.5) g/dL Albumin/Globulin Ratio 0.8 L (1.1-2.2) Lipase 28 (11-82) Units/L Blood Type Antibody Screen Crossmatch 10/13/17 10/13/17 Range/Units 12:16 12:16 WBC (4.3-11.1) K/mcL RBC (4.19-5.50) M/mcL Hgb (12.9-16.9) g/dL Hct (37.5-50.1) % MCV (83.0-100.0) fL MCH (28.0-33.3) pg MCHC (31.6-35.5) g/dL RDW (11.5-14.5) % Plt Count (140-400) K/mcL MPV (9.4-12.4) fL Immature Gran % (0-4) % Seg Neutrophils % % Lymphocytes % % Monocytes % % Eosinophils % % Basophils % % Neutrophils # (1.6-8.9) K/mcL Lymphocytes # (0.6-4.6) K/mcL Monocytes # (0.0-1.3) K/mcL Eosinophils # (0.0-0.6) K/mcL Basophils # (0.0-0.2) K/mcL Platelet Estimate (Normal) Hypochromasia (Not Present) Anisocytosis (Not Present) Microcytosis (Not Present) PT (9.4-12.1) Seconds INR APTT (26.0-36.0) Seconds Sodium (136-145) mEq/L Potassium (3.5-5.1) mEq/L Chloride (98-107) mEq/L Carbon Dioxide (23-29) mEq/L BUN (6-20) mg/dL Creatinine (0.70-1.30) mg/dL Est GFR ( Amer) (> 60) Est GFR (Non-Af Amer) (> 60) BUN/Creatinine Ratio (6-26) Glucose (70-105) mg/dL Calculated Osmolality (280-300) Lactic Acid 2.7 H (0.5-2.2) mmol/L Calcium (8.6-10.3) mg/dL Total Bilirubin (0.3-1.0) mg/dL AST (13-39) Units/L ALT (7-52) Units/L Alkaline Phosphatase (34-104) Units/L Troponin I (< 0.04) ng/mL Serum Total Protein (6.4-8.9) g/dL Albumin (3.5-5.7) g/dL Globulin (2.4-3.5) g/dL Albumin/Globulin Ratio (1.1-2.2) Lipase (11-82) Units/L Blood Type O POSITIVE Antibody Screen NEGATIVE Crossmatch See Detail - Radiology Data Radiology results reviewed: Yes I reviewed the patient's radiology results. - EKG Data EKG attestation: Yes I reviewed and interpreted this EKG. EKG results narrative: NSR witih rate of 96. NO STEMI. normla intervals. no old ekg. 1218
[2017-10-13] MEDS ORDERED: 0.9 % Sodium Chloride 250 ML ONE (13:21)
--- NOTE | 2017-10-13 14:38 | Electrocardiograph Report ---
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
[2017-10-13] MEDS ORDERED: Pantoprazole 80 MG in 0.9 % Sodium Chloride 250 ML IVPB ONE (15:37)
[2017-10-13] MEDS ORDERED: Naloxone 0.4 MG/ML INJ IVP PRN (15:42)
--- NOTE | 2017-10-13 15:49 | Internal Med History&Physical ---
<Trenton Riojas - Last Filed: 10/13/17 15:45> Date of Encounter: 10/13/17 Time of Encounter: 15:46 Assessment and Plan (1) GI bleed Current visit: Yes Status: Acute ASSESSMENT: - GI bleeding. Recent repair of Chantelle-Naik tear and multiple varices with TIPS procedure and embolization on 04/01/17. Patient has a history of cirrhosis. PLAN: - IVF - NPO - H/H now and q 8 hr - Type and screen and transfuse 3 U PRBC - Octreotide drip now - GI consult-spoke with Dr. Valadez who has agreed to see the patient - O2 to keep SpO2 > 92% - CBCD, BMP, INR/PT in AM - EPCD BLE for DVT prophylaxis - Avoid NSAIDS - Qualifiers: GI bleed type/associated pathology: melena Qualified Code(s): K92.1 - Melena (2) Acute blood loss anemia Current visit: Yes Status: Acute HGB 6, presents with melena secondary to GI bleed. Continue to closely monitor for s/sx of increased bleeding. He remains hemodynamically stable at this time. -see plan above (3) Diverticulitis Current visit: Yes Status: Acute Diagnosed with diverticulitis last week. Continue flagyl (4) Liver cirrhosis, alcoholic Current visit: Yes Status: Acute lifestyle modifications -Complete abstinence from ETOH -smoking cessation -avoid NSAIDS -GI consult Qualifiers: Ascites presence: without ascites Qualified Code(s): K70.30 - Alcoholic cirrhosis of liver without ascites (5) Tobacco abuse Current visit: Yes Status: Acute (6) DVT prophylaxis Current visit: Yes Status: Acute EPCD's Internal Medicine - H&P: HPI Chief complaint: GI bleed Admitted From: Home Plans for Post Hospital Care: Home History of present illness: Mr. Mcdowell is a 57 year old male with a PMH of CVA, GERD, GI bleed, hypertension. He presents to [facility] ED today with complaints of melenic stools. Patient has history of GI disease and iron deficiency anemia as well as liver cirrhosis. He reports that approximately 2 days ago he began noticing his stools were getting darker. 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 He denies any weight loss, abdominal pain, nausea, vomiting, diarrhea, shortness of breath, chest pain. Workup in the ED revealed anemia with hemoglobin of 6. He is currently not on any blood thinners. Past Med Surg Social Fam HX - Past Medical History Medical history: CVA, GERD, GI bleed, hypertension Psychiatric history: no psych history - Past Surgical History Surgical History: orthopedic, other - Social History Smoking Status: Current every day smoker Smokeless Tobacco Status: No Alcohol use: heavy Drug use: none - Family History Father Living Status: Hx Family Cardiac Disorders: Yes Mother Living Status: Hx Family Cardiac Disorders: Yes Internal Medicine - H&P: Meds Folic Acid 1 mg PO DAILY #30 tablet 01/29/17 [Rx] Multivitamin [Multivitamins] 1 each PO DAILY #30 capsule 01/29/17 [Rx] Thiamine (B-1) [Vitamin B-1] 100 mg PO DAILY #30 tablet 01/29/17 [Rx] Ferrous Fumarate [Ferrocite] 324 mg PO DAILY 03/30/17 [History] metroNIDAZOLE [Metronidazole] 500 mg PO Q8HR #30 tablet 10/07/17 [Rx] Furosemide [Lasix] 20 mg PO DAILY 10/13/17 [History] Omeprazole [PriLOSEC] 40 mg PO DAILY 10/13/17 [History] Spironolactone [Aldactone] 100 mg PO DAILY 10/13/17 [History] 3 Allergy/AdvReac Type Severity Reaction Status Date / Time No Known Allergies Allergy Verified 10/13/17 12:06 All Systems PM: A 10-system review of systems was performed and is negative for pertinent findings except as documented above in the HPI. - Constitutional Constitutional: weakness, no chills, no fever(s) - Cardiovascular Cardiovascular ROS IM: no chest pain, no diaphoresis, no dyspnea, no lightheadedness, no palpitations, no syncope - Respiratory Respiratory: no cough, no dyspnea, no wheezing, no excessive phlegm production - Gastrointestinal Gastrointestinal: melena, no diarrhea, no hematemesis, no hematochezia, no nausea, no vomiting - Genitourinary Genitourinary ROS male: no difficulty urinating, no dysuria, no flank pain - Musculoskeletal Musculoskeletal ROS IM: no numbness, no tingling - Integumentary Integumentary IM: no rash, no unusual bruising - Neurological Neurological ROS: no confusion, no convulsions, no focal weakness, no numbness, no tingling, no tremor(s) - Constitutional Vitals: Temp Pulse Resp BP Pulse Ox 98.4 F 80 15 110/58 100 10/13/17 14:23 10/13/17 14:23 10/13/17 14:23 10/13/17 14:23 10/13/17 13:18 General appearance: Present: cooperative, A&O X 3, no acute distress, answers questions appropriately - Head Head exam: Present: atraumatic, normocephalic - Eye Pupils: Present: PERRL - Respiratory Respiratory exam: Present: CTAB. Absent: accessory muscle use, rales, rhonchi, wheezes - Cardiovascular Cardiovascular exam: Present: RRR, +S1, +S2. Absent: diastolic murmur, gallop, rubs, systolic murmur - GI/Abdominal GI/Abdominal exam: Present: normal bowel sounds, soft, no peritoneal signs. Absent: distended, tenderness - Extremities Exam Extremities exam: Present: warm, radial pulses palpable and symmetrical. Absent : calf tenderness, cyanotic, pedal edema - Neurological Exam Neurological exam: Present: alert, oriented X3. Absent: facial droop, speech deficit - Skin Skin exam: Present: dry, erythema Internal Med - H&P Results - Labs CBC & Chem 7: 10/13/17 12:16 10/13/17 12:16 - Impressions Impressions Abdomen/Pelvis CT 10/13/17 12:09 IMPRESSION: No acute intra-abdominopelvic abnormality on noncontrast exam. Cirrhosis with trace amount of ascites and varices with a probable splenorenal shunt. Cholelithiasis. Diverticulosis without evidence of diverticulitis on limited noncontrast exam. D/ / Trinity Lawson MD / Trinity Lawson MD Interpreting Provider: Trinity Lawson MD Chest X-Ray 10/13/17 12:09 IMPRESSION: No significant interval change. No radiographic evidence of acute cardiopulmonary process. D/ / Jason Gillette MD / Jason Gillette MD Interpreting Provider: Jason Gillette MD <HeatherYenny - Last Filed: 10/13/17 18:33> Date of Encounter: 10/13/17 Internal Medicine - H&P: HPI History of present illness: Mr. Mcdowell is a 57 year old male All Systems PM: A 10-system review of systems was performed and is negative for pertinent findings except as documented above in the HPI. - Constitutional Vitals: Temp Pulse Resp BP Pulse Ox 98.7 F 81 16 137/69 100 10/13/17 18:10 10/13/17 18:10 10/13/17 18:10 10/13/17 18:10 10/13/17 18:10 Internal Med - H&P Results - Labs CBC & Chem 7: 10/13/17 12:16 10/13/17 12:16 - Attending Attestation I have personally performed a face to face evaluation on this patient. I have reviewed and agree with the care plan provided by LARRY Riojas. History and Exam by me shows: This is 57 y/o M with known alcoholic induced cirrhosis of liver with known GI Bleed, Portal gastropathy pt presented to ER with weakness and melena. He denied any CP / SOB. He denied any hematemesis. Gen: A, A< O x 3 Chest: Diminished BS b/l Heart: S1S2 + RRR No murmurs a/p 1. Acute Melena / Lower GI bleed on PPI gtt on Octreotide gtt GI consulted 2. Alcohol dependence on CIWA protocol
[2017-10-13] MEDS ORDERED: *HR* LORazepam 2 MG/ML VIAL IVP PRN ×3 (16:58)
[2017-10-13] MEDS ORDERED: 0.9 % Sodium Chloride 500 ML ONE (18:03)
[2017-10-13] MEDS: Octreotide 400 MCG in 0.9 % Sodium Chloride 100 ML IVC SCH (19:05)
[2017-10-13] MEDS: metroNIDAZOLE 500 MG TABLET PO SCH (19:05)
[2017-10-13] MEDS: Pantoprazole 40 MG in 0.9 % Sodium Chloride Mini Bag 100 ML IVC SCH (21:18)
[2017-10-14 00:29] LABS: Basophils % 0.8 %; Eosinophils # 0.2 K/mcL (0.0-0.6); Eosinophils % 3.3 %; Hemoglobin 6.9 g/dL (12.9-16.9); Immature Granulocytes % 0.2 % (0-4); Lymphocytes # 1.5 K/mcL (0.6-4.6); Lymphocytes % 28.5 %; Mean Corpuscular Hemoglobin 26.1 pg (28.0-33.3); Mean Corpuscular Volume 87.1 fL (83.0-100.0); Monocytes # 0.8 K/mcL (0.0-1.3); Monocytes % 15.3 %; Neutrophils # 2.6 K/mcL (1.6-8.9); Platelet Count 166 K/mcL (140-400); Red Blood Count 2.64 M/mcL (4.19-5.50); Red Cell Distribution Width 18.8 % (11.5-14.5); Segmented Neutrophils % 51.9 %
[2017-10-14] MEDS: metroNIDAZOLE 500 MG TABLET PO SCH ×3 (00:42→17:32)
[2017-10-14 00:49] LABS: BUN/Creatinine Ratio 34 (6-26); Blood Urea Nitrogen 32 mg/dL (6-20); Calcium 8.4 mg/dL (8.6-10.3); Carbon Dioxide 18 mEq/L (23-29); Chloride 111 mEq/L (98-107); Glucose 102 mg/dL (70-105); Osmolality,Calculated 283 (280-300); Potassium 4.5 mEq/L (3.5-5.1); Sodium 133 mEq/L (136-145); eGFR For African Americans > 60 (> 60); eGFR For Non-African Americans > 60 (> 60)
[2017-10-14] MEDS ORDERED: 0.9 % Sodium Chloride 250 ML ONE (01:40)
[2017-10-14] MEDS: Pantoprazole 40 MG in 0.9 % Sodium Chloride Mini Bag 100 ML IVC SCH ×4 (02:10→21:31)
[2017-10-14] MEDS: 0.9 % Sodium Chloride 1,000 ML IVC SCH ×2 (04:29→19:21)
[2017-10-14 06:08] LABS: Hematocrit 26.3 % (37.5-50.1); Hemoglobin 7.7 g/dL (12.9-16.9)
[2017-10-14] MEDS: Multivit/Ca/Min/Fe/FA 1 TAB TABLET PO SCH (10:01)
[2017-10-14] MEDS: Furosemide 20 MG TABLET PO SCH (10:02)
[2017-10-14] MEDS: Vitamin B Complex/Vit C/Vit E 1 EACH TABLET PO SCH (10:02)
[2017-10-14] MEDS: Thiamine (B-1) 100 MG TABLET PO SCH (10:02)
[2017-10-14] MEDS: Folic Acid 1 MG TABLET PO SCH (10:02)
[2017-10-14] MEDS: Octreotide 400 MCG in 0.9 % Sodium Chloride 100 ML IVC SCH (10:03)
--- NOTE | 2017-10-14 10:39 | Internal Med Progress Note ---
Date of Encounter: 10/14/17 Time of Encounter: 10:38 - Subjective Interval history: HPI: From H&P 57 year old male with a PMH of CVA, GERD, GI bleed, hypertension. He presents to [facility] ED today with complaints of melenic stools. Patient has history of GI disease and iron deficiency anemia as well as liver cirrhosis. He reports that approximately 2 days ago he began noticing his stools were getting darker. 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 He denies any weight loss, abdominal pain, nausea, vomiting, diarrhea, shortness of breath, chest pain. Workup in the ED revealed anemia with hemoglobin of 6. He is currently not on any blood thinners. Assessment and Plan (1) GI bleed Current visit: Yes Status: Acute ASSESSMENT: - GI bleeding. Recent repair of Chantelle-Naik tear and multiple varices with TIPS procedure and embolization on 04/01/17. Patient has a history of cirrhosis. PLAN: - IVF - NPO - H/H now and q 8 hr - Type and screen and transfuse 3 U PRBC - Octreotide drip now - GI consult-spoke with Dr. Valadez who has agreed to see the patient - O2 to keep SpO2 > 92% - CBCD, BMP, INR/PT in AM - EPCD BLE for DVT prophylaxis - Avoid NSAIDS - Qualifiers: GI bleed type/associated pathology: melena Qualified Code(s): K92.1 - Melena (2) Acute blood loss anemia Current visit: Yes Status: Acute HGB 6, presents with melena secondary to GI bleed. Continue to closely monitor for s/sx of increased bleeding. He remains hemodynamically stable at this time. -see plan above (3) Diverticulitis Current visit: Yes Status: Acute Diagnosed with diverticulitis last week. Continue Cipro + flagyl (4) Liver cirrhosis, alcoholic -lifestyle modifications -Complete abstinence from ETOH -smoking cessation -avoid NSAIDS -GI consult -MELD-Na 18 (5) Tobacco abuse Current visit: Yes Status: Acute (6) DVT prophylaxis Current visit: Yes Status: Acute EPCD's - Constitutional Vitals: Temp Pulse Resp BP Pulse Ox 97.9 F 67 15 110/68 96 03/07/18 07:16 10/14/17 07:16 10/14/17 07:16 10/14/17 07:16 10/14/17 07:16 General appearance: Present: cooperative, A&O X 3, no acute distress, answers questions appropriately - Head Head exam: Present: atraumatic, normocephalic - Eye Eye exam: Present: PERRL, conjuntiva pink, sclera anicteric Pupils: Present: PERRL - Neck Neck exam general surgery: Present: supple, trachea midline. Absent: lymphadenopathy - Respiratory Respiratory exam: Present: CTAB. Absent: accessory muscle use, rales, rhonchi, wheezes - Cardiovascular Cardiovascular exam: Present: RRR, +S1, +S2. Absent: diastolic murmur, gallop, rubs, systolic murmur - GI/Abdominal GI/Abdominal exam: Present: normal bowel sounds, soft, no peritoneal signs. Absent: distended, tenderness - Extremities Exam Extremities exam: Present: warm, radial pulses palpable and symmetrical. Absent : calf tenderness, cyanotic, pedal edema - Neurological Exam Neurological exam: Present: CN II-XII intact, oriented X3, no focal deficits. Absent: pronater drift, facial droop, speech deficit - Psychiatric Psychiatric exam: Present: normal affect, normal mood - Skin Skin exam: Present: dry, intact Internal Medicine: Result - Labs CBC & Chem 7: 10/14/17 18:04 10/14/17 00:15 Labs: Short CBC 10/14/17 10/14/17 Range/Units 00:15 05:57 WBC 5.1 (4.3-11.1) K/mcL Hgb 6.9 L 7.7 L (12.9-16.9) g/dL Hct 23.0 L 26.3 L (37.5-50.1) % Plt Count 166 (140-400) K/mcL Neutrophils # 2.6 (1.6-8.9) K/mcL BMP 10/14/17 00:15 Sodium 133 L Potassium 4.5 Chloride 111 H Carbon Dioxide 18 L BUN 32 H Creatinine 0.94 Glucose 102 Calcium 8.4 L - ABG Interpretation ABG results: PT/INR, D-dimer PT 16.5 Seconds (9.4-12.1) H 10/13/17 12:16 - Impressions Impressions Abdomen Ultrasound 10/13/17 21:30 IMPRESSION: 1. Patent TIPSS. 2. Fatty liver versus diffuse hepatocellular disease. 3. Cholelithiasis without sonographic evidence for acute cholecystitis. Small gallbladder polyp is suspected. 4. Mild common duct dilation for the patient's age. D/ / Johnathan Ruiz MD / Johnathan Ruiz MD Interpreting Provider: Johnathan Ruiz MD Consult Discharge Plan - Plan Referrals: Miguel Khan DO [Primary Care Provider] - 10/21/17 9:30 am
--- NOTE | 2017-10-14 11:49 | Gastroenterology Consult Note ---
Date of Encounter: 10/14/17 Time of Encounter: 10:35 - Assessment and plan (1) Anemia Current Visit: Yes Status: Acute Assessment and plan: Hgb on admission was 6, he received 3 units PRBC, and Hgb this AM 7.7. Continue to monitor CBC and transfuse PRBC as needed. Plan for EGD today to r/o esophagitis, gastritis, duodenitis, PUD, MW tear, or AVM. Keep patient NPO. Qualifiers: Anemia type: unspecified type Qualified Code(s): D64.9 - Anemia, unspecified (2) Liver cirrhosis, alcoholic Current Visit: Yes Status: Acute Assessment and plan: MELD-Na 18, Child-Alexandre class B, DF 28.9. Pt continues to drink wine 3-4 times per week. Liver US without lesion. Check AFP. Lifestyle Changes: 1. Total abstinence from alcohol including social drinking. 2. No smoking 3. Gradual loss of weight 4. Drink at least 3 cups of coffee due to its antioxidant effects in the liver, it reduces risk of HCC and advance fibrosis 5. If needed, use less than 2 g/day of Tylenol (in divided doses). 6. Vaccination for Hep A, B, Pneumococcus if not already received and yearly influenza vaccination by PCP 7. Avoid NSAIDS as can cause kidney damage 8. Avoid benzodiazepines and other sedatives such as anti-histamines, narcotics etc. as can cause encephalopathy or confusion 9. Take a late carbohydrate meal supplement as it reduces glucose production from protein breakdown and thus improves nutrition. 10. In cirrhosis, statins are safe to use and also improve portal hypertension and decrease risk of HCC. 11. Screening: o Hepatocellular cancer screening: US of liver, and AFP every 6 months Qualifiers: Ascites presence: without ascites Qualified Code(s): K70.30 - Alcoholic cirrhosis of liver without ascites (3) Upper GI bleeding Current Visit: No Status: Acute Assessment and plan: Plan for EGD today to r/o esophagitis, gastritis, duodenitis, PUD, MW tear, or AVM. - Time Spent With Patient Total time spent is greater than 50% in coordination of care (as documented) at patient's floor/unit and/or counseling patient: GI History of Present Illness - Data of Consult Patient: known to practice within the last 3 years Consult date: 10/14/17 Requesting Physician: Juan Mcneil - Consult Narrative Reason for consult: GI bleed History of present illness: Mr. Mcdowell is a 57 year old male with PMHx of CVA, HTN, GI bleed, alcoholic liver cirrhosis who drinks 3-4 glasses of wine 3-4 days per week who presented to the ED with c/o melena for 2 days prior to admission. Pt was admitted in March 2017 for GI bleed, EGD showed portal hypertensive gastropathy, Chantelle- Naik tears, and a large amount of blood in the stomach. TIPS procedure with embolization completed on 04/01/2017. He denies fever, chills, chest pain, abdominal pain, nausea, vomiting, diarrhea, or constipation. Hgb on admission was 6 and received 3 units PRBC. Hgb this AM 7.7. Procedures: EGD 03/30/2017 Dr. Farooq: Portal hypertensive gastropathy, Chantelle- Naik tears and a large amount of blood in the stomach. EGD 01/28/2017 Dr. 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 Campos 02/09/2014: Tubular adenoma descending colon, internal hemorrhoids, mild diverticulosis EGD 01/15/2014 Dr. Beal: Monilial esophagitis, gastritis NSAIDs: None Anticoagulation: None Past Med Surg Social Fam HX - Past Medical History Medical history: cirrhosis, CVA, GERD, GI bleed, hypertension Psychiatric history: no psych history - Past Surgical History Surgical History: orthopedic, other - Social History Smoking Status: Current every day smoker Smokeless Tobacco Status: No Alcohol use: heavy Drug use: none - Family History Father Living Status: Hx Family Cardiac Disorders: Yes Mother Living Status: Hx Family Cardiac Disorders: Yes - Gastrointestinal Gastrointestinal: Present: as per HPI - Constitutional Constitutional: as per HPI - EENT Eyes: as per HPI Ears: Present: as per HPI Nose, mouth and throat: Present: as per HPI - Cardiovascular Cardiovascular ROS: Present: as per HPI - Respiratory Respiratory IM: Present: as per HPI - Genitourinary Genitourinary: Absent: change in color, Urinary frequency - Neurological ROS Neurological GI: Present: as per HPI - Hematologic/Lymphatic Hematologic/Lymphatic pediatric: Present: as per HPI - Musculoskeletal Musculoskeletal ROS GI: Present: as per HPI - Integumentary Integumentary GI: Present: as per HPI - Psychiatric ROS Psychiatric GI: Present: as per HPI - Endocrine Endocrine IM: Present: as per HPI - Constitutional Vitals: Temp Pulse Resp BP Pulse Ox 97.9 F 63 15 140/81 96 10/14/17 11:00 10/14/17 11:00 10/14/17 11:00 10/14/17 11:00 10/14/17 11:00 General appearance: Present: cooperative, A&O X 3, no acute distress, answers questions appropriately - Head Head exam: Present: atraumatic, normocephalic - Eye Eye exam: Present: normal appearance, sclera anicteric - ENT ENT exam: Present: mucous membranes dry - Neck Neck exam general surgery: Present: normal inspection, trachea midline - Respiratory Respiratory exam: Present: CTAB. Absent: rales, rhonchi - Cardiovascular Cardiovascular exam: Present: RRR, +S1, +S2 - GI/Abdominal GI/Abdominal exam: Present: soft, no peritoneal signs. Absent: distended, firm , guarding, tenderness - Rectal Rectal exam: Present: deferred - Extremities Exam Extremities exam: Present: warm - Neurological Exam Neurological exam: Present: no focal deficits - Psychiatric Psychiatric exam: Present: normal affect, normal mood - Skin Skin exam: Present: dry, intact, normal color, warm Results - Labs CBC & Chem 7: 10/14/17 05:57 10/14/17 00:15 Labs: Last Result Calcium 8.4 mg/dL (8.6-10.3) L 10/14/17 00:15 Troponin I < 0.03 ng/mL (< 0.04) 10/13/17 12:16 Stool Occult Blood Positive (Negative) A 10/14/17 10:00 Entire Visit Hgb 7.7 g/dL (12.9-16.9) L 10/14/17 05:57 Hct 26.3 % (37.5-50.1) L 10/14/17 05:57 PT 16.5 Seconds (9.4-12.1) H 10/13/17 12:16 Total Bilirubin 1.3 mg/dL (0.3-1.0) H 10/13/17 12:16 AST 44 Units/L (13-39) H 10/13/17 12:16 ALT 20 Units/L (7-52) 10/13/17 12:16 Lipase 28 Units/L (11-82) 10/13/17 12:16 - ABG ABG results: PT/INR, D-dimer PT 16.5 Seconds (9.4-12.1) H 10/13/17 12:16 - Impressions Impressions Abdomen Ultrasound 10/13/17 21:30 IMPRESSION: 1. Patent TIPSS. 2. Fatty liver versus diffuse hepatocellular disease. 3. Cholelithiasis without sonographic evidence for acute cholecystitis. Small gallbladder polyp is suspected. 4. Mild common duct dilation for the patient's age. D/ / Johnathan Ruiz MD / Johnathan Ruiz MD Interpreting Provider: Johnathan Ruiz MD Consult Discharge Plan - Plan Referrals: Miguel Khan DO [Primary Care Provider] - 10/21/17 9:30 am
[2017-10-14 12:19] LABS: Hematocrit 25.6 % (37.5-50.1); Hemoglobin 7.8 g/dL (12.9-16.9)
--- NOTE | 2017-10-14 14:04 | Anesthesia Evaluation PreOp ---
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 History: CVA (2013 with residual left sided symptoms) Other Medical History: Hepatic (cirrhosis), GERD Anesthesia History: No Prior Anesthetic Complications Alcohol Use: heavy Drug use: none Medications and Allergies Folic Acid 1 mg PO DAILY #30 tablet 01/29/17 [Rx] Multivitamin [Multivitamins] 1 each PO DAILY #30 capsule 01/29/17 [Rx] Thiamine (B-1) [Vitamin B-1] 100 mg PO DAILY #30 tablet 01/29/17 [Rx] Ferrous Fumarate [Ferrocite] 324 mg PO DAILY 03/30/17 [History] metroNIDAZOLE [Metronidazole] 500 mg PO Q8HR #30 tablet 10/07/17 [Rx] Furosemide [Lasix] 20 mg PO DAILY 10/13/17 [History] Omeprazole [PriLOSEC] 40 mg PO DAILY 10/13/17 [History] Spironolactone [Aldactone] 100 mg PO DAILY 10/13/17 [History] 3 Allergy/AdvReac Type Severity Reaction Status Date / Time No Known Allergies Allergy Verified 10/13/17 12:06 - Meds/Allergy Pre-op Review Medications Reviewed: Yes Allergies Reviewed: Yes Beta Blockers on Current Med List: No Anesthesia Results - Labs 10/14/17 11:56 10/14/17 00:15 Anesthesia Exam Vital Signs/O2 Sat, Most Current Temp Pulse Resp BP Pulse Ox 98 F 71 18 136/60 93 10/14/17 14:02 10/14/17 14:02 10/14/17 14:02 10/14/17 14:02 10/14/17 14:02 Height: 1.75m Weight: 86kg NPO (# of Hours): >8 - HEENT Pupil (Motor): Pupils equal, EOMI Mallampati: III Oral Opening: Greater than 3 - [employer]JECT[employer] DEVELOPER LOC: Oriented [employer] DEVELOPER Motor: Normal RUE, Normal LUE, Normal RLE, Normal LLE, Normal Face [employer] DEVELOPER Sensory: Normal: RUE, LUE, RLE, LLE, Face - Cardiac Rhythm: Regular - Pulmonary Breath Sounds: bilateral Clear Respiratory Effort: Symmetrical Anesthesia Assess/Plan ASA Score: 3 Modified Lindsay Scale for Level of Consciousness: Cooperative, oriented, and tranquil Anesthetic Plan: MAC Monitoring Plan: Standard Monitors Recovery Plan: PACU
[2017-10-14] MEDS ORDERED: *HR* Propofol 200 MG/20 ML VIAL IVP ONE (14:07)
--- NOTE | 2017-10-14 15:16 | Anesthesia Evaluation Post Op ---
Date of Encounter: 10/14/17 Time of Encounter: 15:11 - Vital Signs Vital Signs: Vital Signs/O2 Sat, Most Current Temp Pulse Resp BP Pulse Ox 98 F 71 18 136/60 93 10/14/17 14:02 10/14/17 14:02 10/14/17 14:02 10/14/17 14:02 10/14/17 14:02 - Lungs Lungs: Clear Ascult./Percussion - Airway Airway: Non-obstructed - Cardiovascular Regular Rate - Mental Status Mental Status: Alert & Oriented, Answers Appropriately - Pain Pain Scale: 0 Pain Scale used: Numeric (1 - 10) - Nausea Vomiting Nausea Vomiting: Not Present - Hydration Hydration: Tolerates oral liquids - Discharge PostOp Status: Transfer Patient to floor
[2017-10-14 18:13] LABS: Hematocrit 26.1 % (37.5-50.1)
[2017-10-15] MEDS: metroNIDAZOLE 500 MG TABLET PO SCH ×4 (01:09→23:52)
[2017-10-15] MEDS: Pantoprazole 40 MG in 0.9 % Sodium Chloride Mini Bag 100 ML IVC SCH ×3 (02:10→15:48)
[2017-10-15] MEDS: Octreotide 400 MCG in 0.9 % Sodium Chloride 100 ML IVC SCH ×2 (04:32→22:16)
[2017-10-15 08:27] LABS: BUN/Creatinine Ratio 17 (6-26); Blood Urea Nitrogen 14 mg/dL (6-20); Calcium 8.2 mg/dL (8.6-10.3); Carbon Dioxide 22 mEq/L (23-29); Chloride 108 mEq/L (98-107); Glucose 142 mg/dL (70-105); Osmolality,Calculated 283 (280-300); Potassium 3.6 mEq/L (3.5-5.1); Sodium 135 mEq/L (136-145); eGFR For African Americans > 60 (> 60); eGFR For Non-African Americans > 60 (> 60)
[2017-10-15] MEDS: Furosemide 20 MG TABLET PO SCH (08:27)
[2017-10-15] MEDS: Thiamine (B-1) 100 MG TABLET PO SCH (08:27)
[2017-10-15] MEDS: Multivit/Ca/Min/Fe/FA 1 TAB TABLET PO SCH (08:27)
[2017-10-15] MEDS: Folic Acid 1 MG TABLET PO SCH (08:28)
[2017-10-15] MEDS: Vitamin B Complex/Vit C/Vit E 1 EACH TABLET PO SCH (08:28)
[2017-10-15 08:33] LABS: Basophils # 0.1 K/mcL (0.0-0.2); Basophils % 1.3 %; Eosinophils # 0.1 K/mcL (0.0-0.6); Eosinophils % 3.3 %; Hematocrit 26.4 % (37.5-50.1); Immature Granulocytes % 0.3 % (0-4); Lymphocytes # 0.8 K/mcL (0.6-4.6); Lymphocytes % 19.8 %; Mean Corpuscular HGB Conc 30.3 g/dL (31.6-35.5); Mean Corpuscular Hemoglobin 26.2 pg (28.0-33.3); Mean Corpuscular Volume 86.6 fL (83.0-100.0); Mean Platelet Volume 11.5 fL (9.4-12.4); Monocytes # 0.6 K/mcL (0.0-1.3); Neutrophils # 2.4 K/mcL (1.6-8.9); Platelet Count 204 K/mcL (140-400); Red Blood Count 3.05 M/mcL (4.19-5.50); Red Cell Distribution Width 18.9 % (11.5-14.5); Segmented Neutrophils % 60.3 %
--- NOTE | 2017-10-15 15:59 | Internal Med Progress Note ---
Date of Encounter: 10/15/17 Time of Encounter: 15:59 - Subjective Interval history: HPI: From H&P 57 year old male with a PMH of CVA, GERD, GI bleed, hypertension. He presents to [facility] ED today with complaints of melenic stools. Patient has history of GI disease and iron deficiency anemia as well as liver cirrhosis. He reports that approximately 2 days ago he began noticing his stools were getting darker. 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 He denies any weight loss, abdominal pain, nausea, vomiting, diarrhea, shortness of breath, chest pain. Workup in the ED revealed anemia with hemoglobin of 6. He is currently not on any blood thinners. Assessment and Plan (1) GI bleed Recent repair of Chantelle-Naik tear and multiple varices with TIPS procedure and embolization on 04/01/17. Patient has a history of cirrhosis. - IVF - NPO - H/H now and q 8 hr - Type and screen and transfuse 3 U PRBC - Octreotide drip now Protonix drip - GI consult-spoke with Dr. Valadez who has agreed to see the patient - O2 to keep SpO2 > 92% - CBCD, BMP, INR/PT in AM - EPCD BLE for DVT prophylaxis - Avoid NSAIDS (2) Acute blood loss anemia HGB 6, presents with melena secondary to GI bleed. Continue to closely monitor for s/sx of increased bleeding. He remains hemodynamically stable at this time. (3) Diverticulitis Diagnosed with diverticulitis last week. Continue Cipro + flagyl (4) Liver cirrhosis, alcoholic -lifestyle modifications -Complete abstinence from ETO -avoid NSAIDS -GI consult -MELD-Na 18 (5) Tobacco abuse Nicotine patch (6) DVT prophylaxis EPCD's - Constitutional Vitals: Temp Pulse Resp BP Pulse Ox 97.9 F 65 15 119/83 98 10/15/17 15:00 10/15/17 15:00 10/15/17 15:00 10/15/17 15:00 10/15/17 15:00 General appearance: Present: cooperative, A&O X 3, no acute distress, answers questions appropriately - Head Head exam: Present: atraumatic, normocephalic - Eye Eye exam: Present: PERRL, conjuntiva pink, sclera anicteric Pupils: Present: PERRL - Neck Neck exam general surgery: Present: supple, trachea midline. Absent: lymphadenopathy - Respiratory Respiratory exam: Present: CTAB. Absent: accessory muscle use, rales, rhonchi, wheezes - Cardiovascular Cardiovascular exam: Present: RRR, +S1, +S2. Absent: diastolic murmur, gallop, rubs, systolic murmur - GI/Abdominal GI/Abdominal exam: Present: normal bowel sounds, soft, no peritoneal signs. Absent: distended, tenderness - Extremities Exam Extremities exam: Present: warm, radial pulses palpable and symmetrical. Absent : calf tenderness, cyanotic, pedal edema - Neurological Exam Neurological exam: Present: CN II-XII intact, oriented X3, no focal deficits. Absent: pronater drift, facial droop, speech deficit - Skin Skin exam: Present: dry, intact Internal Medicine: Result - Labs CBC & Chem 7: 10/15/17 07:30 10/15/17 07:30 Labs: Short CBC 10/14/17 10/15/17 Range/Units 18:04 07:30 WBC 3.9 L (4.3-11.1) K/mcL Hgb 8.0 L 8.0 L (12.9-16.9) g/dL Hct 26.1 L 26.4 L (37.5-50.1) % Plt Count 204 (140-400) K/mcL Neutrophils # 2.4 (1.6-8.9) K/mcL BMP 10/15/17 07:30 Sodium 135 L Potassium 3.6 Chloride 108 H Carbon Dioxide 22 L BUN 14 Creatinine 0.84 Glucose 142 H Calcium 8.2 L - ABG Interpretation ABG results: PT/INR, D-dimer PT 16.5 Seconds (9.4-12.1) H 10/13/17 12:16 - VTE Documentation of Mechanical Device: Intermittent pneumatic compression device Consult Discharge Plan - Plan Referrals: Miguel Khan DO [Primary Care Provider] - 10/21/17 9:30 am Dustin Casillas, CHARTER COACH DRIVER [Advanced Practice Nurse] - (appt has been requested)
[2017-10-16] MEDS: Pantoprazole 40 MG in 0.9 % Sodium Chloride Mini Bag 100 ML IVC SCH (02:57)
[2017-10-16] MEDS: metroNIDAZOLE 500 MG TABLET PO SCH ×3 (07:29→23:30)
[2017-10-16 08:40] LABS: BUN/Creatinine Ratio 9 (6-26); Blood Urea Nitrogen 7 mg/dL (6-20); Carbon Dioxide 22 mEq/L (23-29); Chloride 106 mEq/L (98-107); Glucose 164 mg/dL (70-105); Osmolality,Calculated 278 (280-300); Potassium 3.9 mEq/L (3.5-5.1); Sodium 133 mEq/L (136-145); eGFR For African Americans > 60 (> 60); eGFR For Non-African Americans > 60 (> 60)
[2017-10-16 08:41] LABS: Basophils # 0.1 K/mcL (0.0-0.2); Basophils % 1.4 %; Eosinophils # 0.2 K/mcL (0.0-0.6); Eosinophils % 3.7 %; Hematocrit 26.8 % (37.5-50.1); Immature Granulocytes % 0.2 % (0-4); Lymphocytes # 0.9 K/mcL (0.6-4.6); Lymphocytes % 19.1 %; Mean Corpuscular HGB Conc 29.9 g/dL (31.6-35.5); Mean Corpuscular Hemoglobin 26.1 pg (28.0-33.3); Mean Corpuscular Volume 87.3 fL (83.0-100.0); Mean Platelet Volume 10.7 fL (9.4-12.4); Monocytes # 0.7 K/mcL (0.0-1.3); Monocytes % 14.3 %; Platelet Count 220 K/mcL (140-400); Red Blood Count 3.07 M/mcL (4.19-5.50); Red Cell Distribution Width 19.3 % (11.5-14.5); Segmented Neutrophils % 61.3 %
[2017-10-16] MEDS: Vitamin B Complex/Vit C/Vit E 1 EACH TABLET PO SCH (09:07)
[2017-10-16] MEDS: Furosemide 20 MG TABLET PO SCH (09:07)
[2017-10-16] MEDS: Folic Acid 1 MG TABLET PO SCH (09:08)
[2017-10-16] MEDS: Multivit/Ca/Min/Fe/FA 1 TAB TABLET PO SCH (09:08)
[2017-10-16] MEDS: Thiamine (B-1) 100 MG TABLET PO SCH (09:08)
--- NOTE | 2017-10-17 05:49 | Internal Med Progress Note ---
Date of Encounter: 10/17/17 Time of Encounter: 14:02 - Subjective Interval history: HPI: From H&P 57 year old male with a PMH of CVA, GERD, GI bleed, hypertension. He presents to [facility] ED today with complaints of melenic stools. Patient has history of GI disease and iron deficiency anemia as well as liver cirrhosis. He reports that approximately 2 days ago he began noticing his stools were getting darker. 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 He denies any weight loss, abdominal pain, nausea, vomiting, diarrhea, shortness of breath, chest pain. Workup in the ED revealed anemia with hemoglobin of 6. He is currently not on any blood thinners. Assessment and Plan (1) GI bleed Recent repair of Chantelle-Naik tear and multiple varices with TIPS procedure and embolization on 04/01/17. Patient has a history of cirrhosis. - IVF - NPO - H/H now and q 8 hr - Type and screen and transfuse 3 U PRBC - Octreotide drip now Protonix drip - GI consult-spoke with Dr. Valadez who has agreed to see the patient - O2 to keep SpO2 > 92% - CBCD, BMP, INR/PT in AM - EPCD BLE for DVT prophylaxis - Avoid NSAIDS s/p EGD with banding No further melanotic stools and stable Hgb Home tomorrow if GI okay Diet advanced (2) Acute blood loss anemia HGB 6, presents with melena secondary to GI bleed. Continue to closely monitor for s/sx of increased bleeding. He remains hemodynamically stable at this time. (3) Diverticulitis Diagnosed with diverticulitis last week. Continue Cipro + flagyl Possible colonoscopy as OP (4) Liver cirrhosis, alcoholic -lifestyle modifications -Complete abstinence from ETO -avoid NSAIDS -GI consult -MELD-Na 18 (5) Tobacco abuse Nicotine patch (6) DVT prophylaxis EPCD's - Constitutional Vitals: Temp Pulse Resp BP Pulse Ox 98.0 F 66 16 106/67 95 10/17/17 03:27 10/17/17 03:27 10/17/17 03:27 10/17/17 03:27 10/17/17 03:27 General appearance: Present: cooperative, A&O X 3, no acute distress, answers questions appropriately - Head Head exam: Present: atraumatic, normocephalic - Eye Eye exam: Present: PERRL, conjuntiva pink, sclera anicteric Pupils: Present: PERRL - Neck Neck exam general surgery: Present: supple, trachea midline. Absent: lymphadenopathy - Respiratory Respiratory exam: Present: CTAB. Absent: accessory muscle use, rales, rhonchi, wheezes - Cardiovascular Cardiovascular exam: Present: RRR, +S1, +S2. Absent: diastolic murmur, gallop, rubs, systolic murmur - GI/Abdominal GI/Abdominal exam: Present: normal bowel sounds, soft, no peritoneal signs. Absent: distended, firm, guarding, rebound, tenderness - Extremities Exam Extremities exam: Present: warm, radial pulses palpable and symmetrical. Absent : calf tenderness, cyanotic, pedal edema - Neurological Exam Neurological exam: Present: CN II-XII intact, oriented X3, no focal deficits. Absent: pronater drift, facial droop, speech deficit - Skin Skin exam: Present: dry, intact Internal Medicine: Result - Labs CBC & Chem 7: 10/16/17 08:07 10/16/17 08:07 Labs: Short CBC 10/16/17 Range/Units 08:07 WBC 4.9 (4.3-11.1) K/mcL Hgb 8.0 L (12.9-16.9) g/dL Hct 26.8 L (37.5-50.1) % Plt Count 220 (140-400) K/mcL Neutrophils # 3.0 (1.6-8.9) K/mcL BMP 10/16/17 08:07 Sodium 133 L Potassium 3.9 Chloride 106 Carbon Dioxide 22 L BUN 7 Creatinine 0.82 Glucose 164 H Calcium 8.0 L - ABG Interpretation ABG results: PT/INR, D-dimer PT 16.5 Seconds (9.4-12.1) H 10/13/17 12:16 - VTE Documentation of Mechanical Device: Intermittent pneumatic compression device Consult Discharge Plan - Plan Referrals: Miguel Khan DO [Primary Care Provider] - 10/21/17 9:30 am Dustin Casillas, ENGINEERING INSTRUCTOR [Advanced Practice Nurse] - (appt has been requested)
[2017-10-17 09:18] LABS: Basophils # 0.1 K/mcL (0.0-0.2); Basophils % 1.2 %; Eosinophils # 0.2 K/mcL (0.0-0.6); Eosinophils % 2.9 %; Hematocrit 29.5 % (37.5-50.1); Hemoglobin 8.7 g/dL (12.9-16.9); Immature Granulocytes % 0.2 % (0-4); Lymphocytes # 0.8 K/mcL (0.6-4.6); Lymphocytes % 15.8 %; Mean Corpuscular HGB Conc 29.5 g/dL (31.6-35.5); Mean Corpuscular Hemoglobin 26.2 pg (28.0-33.3); Mean Corpuscular Volume 88.9 fL (83.0-100.0); Mean Platelet Volume 10.9 fL (9.4-12.4); Monocytes # 0.6 K/mcL (0.0-1.3); Monocytes % 11.2 %; Neutrophils # 3.6 K/mcL (1.6-8.9); Platelet Count 236 K/mcL (140-400); Red Blood Count 3.32 M/mcL (4.19-5.50); Segmented Neutrophils % 68.7 %
[2017-10-17 09:27] LABS: BUN/Creatinine Ratio 9 (6-26); Blood Urea Nitrogen 8 mg/dL (6-20); Calcium 8.4 mg/dL (8.6-10.3); Carbon Dioxide 23 mEq/L (23-29); Chloride 105 mEq/L (98-107); Glucose 131 mg/dL (70-105); Osmolality,Calculated 278 (280-300); Sodium 134 mEq/L (136-145); eGFR For African Americans > 60 (> 60); eGFR For Non-African Americans > 60 (> 60)
--- NOTE | 2017-10-17 10:08 | Discharge Summary ---
Date of Encounter: 10/17/17 Time of Encounter: 10:04 Hospital course: Mr. Mcdowell is a 57 year old male with a PMH of CVA, GERD, GI bleed, hypertension who presented to [facility] ED today with complaining of melenic stools. He has history of GI disease and iron deficiency anemia as well as liver cirrhosis. He reports that approximately 2 days before admission he began noticing his stools were getting darker. 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 His workup in the ED revealed anemia with hemoglobin of 6. He was not on any blood thinners. He was made NPO and started on Octreotide and Protonix drips and transfused 3 units of PRBCs. He was evaluated by GI and underwent an EGD with banding of esophageal and gastric varices. He had no further bleeding following the procedure and his hgb remained stable for 48 hrs hours before being discharged to home in stable condition. His diet was advanced and he tolerated it well. He was also started on Nadalol 40 mg once daily before discharge. He will f/u with GI after discharge. Discharge discussed with: patient, family, nurse Time spent discussing smoking cessation with patient: more than 10 minutes - Time Spent with Patient Total time spent providing and/or coordinating discharge services: Greater than 30 minutes - Discharge Medications Prescriptions: Ciprofloxacin [Cipro] 500 mg PO BID 7 Days #14 tablet Nadolol [Corgard] 40 mg PO DAILY 30 Days #30 tablet Home Medications: Folic Acid 1 mg PO DAILY #30 tablet 01/29/17 [Rx] Multivitamin [Multivitamins] 1 each PO DAILY #30 capsule 01/29/17 [Rx] Thiamine (B-1) [Vitamin B-1] 100 mg PO DAILY #30 tablet 01/29/17 [Rx] Ferrous Fumarate [Ferrocite] 324 mg PO DAILY 03/30/17 [History] metroNIDAZOLE [Metronidazole] 500 mg PO Q8HR #30 tablet 10/07/17 [Rx] Furosemide [Lasix] 20 mg PO DAILY 10/13/17 [History] Omeprazole [PriLOSEC] 40 mg PO DAILY 10/13/17 [History] Spironolactone [Aldactone] 100 mg PO DAILY 10/13/17 [History] Ciprofloxacin [Cipro] 500 mg PO BID 7 Days #14 tablet 10/17/17 [Rx] Nadolol [Corgard] 40 mg PO DAILY 30 Days #30 tablet 10/17/17 [Rx] Allergies/Adverse Reactions: 3 Allergy/AdvReac Type Severity Reaction Status Date / Time No Known Allergies Allergy Verified 10/13/17 12:06 Date of admission: 10/13/17 15:17 Primary care physician: Miguel Khan, Consults: 10/13/17 15:37 Consult to Gastroenterology [CONS] Routine Consulting Provider: Gastroenterology Roberta Reason for Consult: GI bleeding Time Notified: 15:40 Call Completed: Yes - Constitutional Vitals: Temp Pulse Resp BP Pulse Ox 97.8 F 75 18 101/80 98 10/17/17 07:42 10/17/17 07:42 10/17/17 07:42 10/17/17 07:42 10/17/17 07:42 General appearance: Present: cooperative, A&O X 3, no acute distress, answers questions appropriately - Head Head exam: Present: atraumatic, normocephalic - Eye Eye exam: Present: PERRL, conjuntiva pink, sclera anicteric Pupils: Present: PERRL - Neck Neck exam general surgery: Present: supple, trachea midline. Absent: lymphadenopathy - Respiratory Respiratory exam: Present: CTAB. Absent: accessory muscle use, rales, rhonchi, wheezes - Cardiovascular Cardiovascular exam: Present: RRR, +S1, +S2. Absent: diastolic murmur, gallop, rubs, systolic murmur - GI/Abdominal GI/Abdominal exam: Present: normal bowel sounds, soft, no peritoneal signs. Absent: distended, tenderness - Extremities Exam Extremities exam: Present: warm, radial pulses palpable and symmetrical. Absent : calf tenderness, cyanotic, pedal edema - Neurological Exam Neurological exam: Present: CN II-XII intact, oriented X3, no focal deficits. Absent: pronater drift, facial droop, speech deficit - Skin Skin exam: Present: dry, intact - Patient Status Disposition: Home, Self-Care Condition: Good - Discharge Instructions Instructions: Ciprofloxacin (By mouth), Nadolol (By mouth), Ciprofloxacin ( Injection), How to Stop Smoking (DC), How to Stop Smoking (GEN), Gastrointestinal Bleeding (DC), Gastrointestinal Bleeding (GEN), Diverticulitis (DC), Diverticulitis (GEN), Cirrhosis (DC), Cirrhosis (GEN), Cigarette Smoking and Your Health (GEN), Diverticulitis Diet (DC), Diverticulitis Diet (GEN), Alcohol Withdrawal (DC), Alcohol Withdrawal (GEN), Ascites (DC), Ascites (GEN), Esophageal Varices (DC), Esophageal Varices (GEN), Cigarette Smoking and Your Health, Asset Protection Assistant (GEN), How to Stop Smoking, Asset Protection Assistant (GEN) Follow Up With: Miguel Khan DO [Primary Care Provider] - 10/21/17 9:30 am Dustin Casillas CNP [Advanced Practice Nurse] - (appt has been requested) - VTE Documentation of Mechanical Device: Intermittent pneumatic compression device
[2017-10-17 11:23] VITALS: BP 127/75
[2017-10-17] MEDS: metroNIDAZOLE 500 MG TABLET PO SCH (11:38)
[2017-10-17] MEDS: Thiamine (B-1) 100 MG TABLET PO SCH (11:38)
[2017-10-17] MEDS: Multivit/Ca/Min/Fe/FA 1 TAB TABLET PO SCH (11:38)
[2017-10-17] MEDS: Furosemide 20 MG TABLET PO SCH (11:38)
[2017-10-17] MEDS: Vitamin B Complex/Vit C/Vit E 1 EACH TABLET PO SCH (11:38)
[2017-10-17] MEDS: Folic Acid 1 MG TABLET PO SCH (11:39)
== END 2017-10-17 13:23 | disposition home or self-care (01) | DRG 242 ==
LOC: EMEROO 11:54 → 2NENU 15:17
PROVIDERS: ADMIT Family Medicine; ATTEND Internal Medicine

== ENCOUNTER 2018-02-08 11:00 | Inpatient (IN) ==
[2018-02-08] MEDS ORDERED: Pantoprazole 80 MG in 0.9 % Sodium Chloride 50 ML IVPB ONE (11:16)
[2018-02-08] MEDS ORDERED: 0.9 % Sodium Chloride 1,000 ML IVC ONE (11:16)
[2018-02-08] MEDS ORDERED: 0.9 % Sodium Chloride 1,000 ML ONE (11:19)
[2018-02-08] MEDS ORDERED: Pantoprazole 40 MG in 0.9 % Sodium Chloride Mini Bag 100 ML IVC SCH (11:30)
--- NOTE | 2018-02-08 11:50 | Emergency Department Note ---
Disposition Clinical Impression: Upper GI bleed, Elevated lactic acid level Anemia Qualifiers: Anemia type: unspecified type Qualified Code(s): D64.9 - Anemia, unspecified Disposition: Admitted As Inpatient Condition: Good GI Bleed HPI - General Chief complaint: ED GI Bleed Stated complaint: GI bleed Time Seen by Provider: 02/08/18 11:10 Source: patient Limitations: no limitations Nursing Notes Reviewed: Yes Vital Signs Reviewed: Yes - History of Present Illness HPI Narrative: Patient presents for evaluation of hematemesis as well as dark stools. Patient does have a history of cirrhosis and has had adjuvant esophageal varices that have required banding in the past. States he has had a upset at abdomen that started yesterday. 2 episodes of bright red hematemesis as well as 3 episodes of dark stool all today. Patient has felt weak and dizzy and lightheaded. The patient initially presented tachycardic and hypotensive. 2 IVs were placed in the patient was given a liter of saline. Patient's blood pressure improved to a systolic blood pressure of 90. The patient's blood was sent, type and cross, order for 2 units. Protonic strip was started. Patient does state he has a history of cirrhosis likely secondary to prior alcohol use. He states the last 4 days he has had several margaritas each day which he believes may have contributed to the gastrointestinal bleeding. - Related Data Home Medications Medication Instructions Recorded Confirmed Ferrous Fumarate [Ferrocite] 324 mg PO DAILY 03/30/17 10/13/17 Furosemide [Lasix] 20 mg PO DAILY 10/13/17 10/13/17 Omeprazole [PriLOSEC] 40 mg PO DAILY 10/13/17 10/13/17 Spironolactone [Aldactone] 100 mg PO DAILY 10/13/17 10/13/17 Previous Rx's Medication Instructions Recorded Folic Acid 1 mg PO DAILY #30 tablet 01/29/17 Multivitamin [Multivitamins] 1 each PO DAILY #30 capsule 01/29/17 Thiamine (B-1) [Vitamin B-1] 100 mg PO DAILY #30 tablet 01/29/17 Nadolol [Corgard] 40 mg PO DAILY 30 Days #30 tablet 10/17/17 Allergies Allergy/AdvReac Type Severity Reaction Status Date / Time No Known Allergies Allergy Verified 10/13/17 12:06 Review of Systems: CONSTITUTIONAL: Weakness and fatigue with no fever or chills HEENT: Eyes: No visual changes. Ears, Nose, Throat: No hearing loss, difficulty talking or unable to swallow. SKIN: No rash or itching. CARDIOVASCULAR: No chest pain, chest pressure or chest discomfort. No palpitations or edema. RESPIRATORY: No shortness of breath, cough or sputum. GASTROINTESTINAL: Decreased appetite with nausea and hematemesis as well as dark stool. Abdominal pain described as cramping and generalized. No radiation. GENITOURINARY: No burning on urination or hematuria. NEUROLOGICAL: Dizziness No headache, syncope, paralysis, ataxia, numbness or tingling in the extremities. No change in bowel or bladder control. MUSCULOSKELETAL: No muscle pain, back pain, joint pain or stiffness. Past Medical History - Past Medical History Medical history: Reports: cirrhosis, CVA, GERD, GI bleed, hypertension, liver disease Surgical history: Reports: orthopedic, other Psychiatric history: Reports: no psych history - Social History Smoking Status: Current every day smoker Smokeless Tobacco Status: No Alcohol use: Reports: heavy Drug use: Reports: none Physical Exam General: Well appearing, nontoxic, no acute distress Head: Normocephalic Atraumatic Eyes: PERRL, EOMI ENT: Airway patent, no stridor Neck: supple, no meningismus Chest: Lungs clear to auscultation bilateral Cardiac: Regular rate and rhythm, no murmurs, rubs or gallops Abdomen: soft, nontender, nondistended; no guarding, rebound, or tenderness to percussion Skin: Mild jaundice. No rash, normal skin tone Neuro: Alert and Oriented to person, place, and time; No focal deficit, CN 2-12 symmetric and intact - General Limitations: no limitations General appearance: alert, in no apparent distress Course - Reevaluation(s) Reevaluation #1: Patient has [address]. Initial response with 1 L of normal saline. Labs show hemoglobin less than 7. Due to continued bleeding and one episode of hematemesis in the emergency department 2 units of blood have been ordered. Protonix was initially ordered. Slight delay in discussion with gastroenterology. Ocreotide and ceftriaxone were both started. After discussion with gastroenterology they request no change to these medicines. - Consultations Consultation #1: Discussed with GI. They will consult on the patient for possible endoscopy later today versus tomorrow. Agrees with treatment that has been performed. Consultation #2: Discussed with hospitalist. Patient accepted for admission. Vital Signs Temperature 97.9 F 02/08/18 11:08 Pulse Rate 102 02/08/18 11:08 Respiratory Rate 18 02/08/18 11:08 Blood Pressure 66/36 02/08/18 11:08 O2 Sat by Pulse Oximetry 100 02/08/18 11:08 Temperature 97.9 F 02/08/18 11:08 Pulse Rate 102 02/08/18 11:08 Respiratory Rate 18 02/08/18 11:08 Blood Pressure 66/36 02/08/18 11:08 O2 Sat by Pulse Oximetry 100 02/08/18 11:08 Oxygen Delivery Oxygen Delivery Room Air GI Bleed - Medical Records Medical records reviewed: Yes I reviewed the patient's medical records. - Lab Data Lab results reviewed: Yes I reviewed the patient's lab results. - Radiology Data Radiology results reviewed: Yes I reviewed the patient's radiology results. - EKG Data EKG attestation: Yes I reviewed and interpreted this EKG. EKG results narrative: EKG shows sinus rhythm with short PA interval. Ventricular rate of 91. TR 119. QRS 81. QTC 416. No significant ST elevations or depressions.
[2018-02-08 12:10] LABS: Basophils % 0.5 %
[2018-02-08 12:11] LABS: Eosinophils # 0.2 K/mcL (0.0-0.6); Eosinophils % 2.7 %; Hematocrit 23.2 % (37.5-50.1); Hemoglobin 6.9 g/dL (12.9-16.9); Immature Granulocytes % 0.4 % (0-4); Lymphocytes # 2.2 K/mcL (0.6-4.6); Lymphocytes % 26.5 %; Mean Corpuscular HGB Conc 29.7 g/dL (31.6-35.5); Mean Corpuscular Hemoglobin 30.9 pg (28.0-33.3); Mean Platelet Volume 11.2 fL (9.4-12.4); Monocytes # 0.9 K/mcL (0.0-1.3); Monocytes % 11.1 %; Neutrophils # 4.8 K/mcL (1.6-8.9); Platelet Count 147 K/mcL (140-400); Red Blood Count 2.23 M/mcL (4.19-5.50); Red Cell Distribution Width 16.6 % (11.5-14.5); Segmented Neutrophils % 58.8 %
[2018-02-08 12:17] LABS: INR 1.6
[2018-02-08 12:19] LABS: Activated Partial Thrombo Time 27.5 Seconds (26.0-36.0)
[2018-02-08 12:30] LABS: Troponin I < 0.03 ng/mL (< 0.04)
[2018-02-08 12:31] LABS: Platelet Estimate Normal (Normal)
[2018-02-08 12:32] LABS: BUN/Creatinine Ratio 24 (6-26); Blood Urea Nitrogen 24 mg/dL (6-20); Calcium 7.7 mg/dL (8.6-10.3); Carbon Dioxide 19 mEq/L (23-29); Chloride 111 mEq/L (98-107); Glucose 147 mg/dL (70-105); Hypochromasia Present (Not Present); Osmolality,Calculated 295 (280-300); Polychromasia 1+ (Not Present); Potassium 4.1 mEq/L (3.5-5.1); Sodium 139 mEq/L (136-145); eGFR For African Americans > 60 (> 60); eGFR For Non-African Americans > 60 (> 60)
[2018-02-08] MEDS ORDERED: cefTRIAXone 1,000 MG in Water for inj. (sterile) 20 ML 10 ML IVP ONE (12:41)
[2018-02-08] MEDS ORDERED: Octreotide 50 MCG/ML SYRINGE IVP ONE (12:41)
[2018-02-08] MEDS ORDERED: Octreotide 400 MCG in 0.9 % Sodium Chloride 100 ML IVC SCH (12:45)
[2018-02-08] MEDS ORDERED: 0.9 % Sodium Chloride 500 ML ONE (12:46)
[2018-02-08] MEDS ORDERED: Naloxone 0.4 MG/ML INJ IVP PRN (14:24)
[2018-02-08] MEDS ORDERED: Ondansetron 4 MG/2 ML VIAL IVP PRN (14:34)
--- NOTE | 2018-02-08 14:40 | Internal Med History&Physical ---
Date of Encounter: 02/08/18 Time of Encounter: 14:45 Internal Medicine - H&P: HPI Chief complaint: GI bleed Admitted From: Home Plans for Post Hospital Care: Home History of present illness: Mr. Wu is a 58 year old male presented to the emergency room with hematemesis and black stool. Patient does have a history of alcoholic cirrhosis and had a history of esophageal varices that were banded in the past. He started having black or any stool yesterday for 2 episodes and this morning when he also vomited blood. He had mild abdominal pain associated with it. Patient did feel weak and dizzy and lightheaded. On presentation to the emergency department he was hypotensive with systolic blood pressure in the 80s. Patient got IV fluid and his pressure responded well. Last blood pressure was 103 systolic. Patient hemoglobin was found 6.9 and he is being transfused 2 units of PRBCs. On my interviewing the patient to was awake alert oriented. He get me old his information. He was feeling better but he was a little nauseated. GI was already contacted from the emergency department and they will see the patient on consult. Patient still drinking alcohol and he did drink much within the last few days. Past Med Surg Social Fam HX - Past Medical History Medical history: cirrhosis, CVA, GERD, GI bleed, hypertension, liver disease Additional medical history: smoker, alcoholism, anemia, UGI bleed, cirrhosis, and esophageal varices Psychiatric history: no psych history - Past Surgical History Surgical History: orthopedic, other Additional surgical history: Stent on liver - Social History Smoking Status: Current every day smoker Smokeless Tobacco Status: No Alcohol use: heavy Drug use: none - Family History Father Living Status: Hx Family Cardiac Disorders: Yes Mother Living Status: Hx Family Cardiac Disorders: Yes Internal Medicine - H&P: Meds Folic Acid 1 mg PO DAILY #30 tablet 01/29/17 [Rx] Multivitamin [Multivitamins] 1 each PO DAILY #30 capsule 01/29/17 [Rx] Thiamine (B-1) [Vitamin B-1] 100 mg PO DAILY #30 tablet 01/29/17 [Rx] Ferrous Fumarate [Ferrocite] 324 mg PO DAILY 03/30/17 [History] Furosemide [Lasix] 20 mg PO DAILY 10/13/17 [History] Omeprazole [PriLOSEC] 40 mg PO DAILY 10/13/17 [History] Spironolactone [Aldactone] 100 mg PO DAILY 10/13/17 [History] Nadolol [Corgard] 40 mg PO DAILY 30 Days #30 tablet 10/17/17 [Rx] 3 Allergy/AdvReac Type Severity Reaction Status Date / Time No Known Allergies Allergy Verified 10/13/17 12:06 All Systems PM: A 10-system review of systems was performed and is negative for pertinent findings except as documented above in the HPI. - Constitutional Vitals: Temp Pulse Resp BP Pulse Ox 98.8 F 78 18 121/85 100 02/08/18 13:25 02/08/18 13:25 02/08/18 13:25 02/08/18 13:25 02/08/18 12:01 - Head Head exam: Present: atraumatic, normocephalic - Eye Eye exam: Present: PERRL, conjuntiva pink, sclera anicteric Pupils: Present: PERRL - Neck Neck exam general surgery: Present: supple, trachea midline. Absent: lymphadenopathy - Respiratory Respiratory exam: Present: CTAB. Absent: accessory muscle use, rales, rhonchi, wheezes - Cardiovascular Cardiovascular exam: Present: RRR, +S1, +S2. Absent: diastolic murmur, gallop, rubs, systolic murmur - GI/Abdominal GI/Abdominal exam: Present: normal bowel sounds, soft, no peritoneal signs Additional comments: Diffuse mild tenderness - Extremities Exam Extremities exam: Present: warm, radial pulses palpable and symmetrical. Absent : calf tenderness, cyanotic, pedal edema - Neurological Exam Neurological exam: Present: CN II-XII intact, oriented X3, no focal deficits. Absent: pronater drift, facial droop, speech deficit - Skin Skin exam: Present: dry, intact Internal Med - H&P Results - Labs CBC & Chem 7: 02/08/18 11:41 02/08/18 11:41 - VTE Reasons for not Prescribing Prophylaxis: Medical contraindication - Assessment and plan (1) GI bleed Current Visit: Yes Status: Acute Assessment and plan: Upper and lower GI bleed with hematochezia and hematemesis Vital signs stable Concern of esophageal varices bleeding. GI already contacted from the emergency department. Protonix drip Octreotide drip Transfused 2 units of PRBCs. Check H&H post transfusion and every 6 hours. May transfuse more blood if needed Repeat lactic acid and follow until normalized Continue IV hydration. Monitor blood pressure closely. Monitor signs of bleeding. Patient has low threshold of being moved to the ICU for any signs of deterioration May need emergent EGD if any sign of active bleeding. GI aware Avoid any blood tender on anticoagulation. Hold all antihypertensives. Follow closely Qualifiers: Qualified Code(s): K92.2 - Gastrointestinal hemorrhage, unspecified (2) Lactic acidosis Current Visit: Yes Status: Acute Assessment and plan: Secondary to GI bleed No signs or source of infection Blood cultures Continue with IV hydration Repeat lactic acid level and monitor until normalized (3) Acute blood loss anemia Current Visit: Yes Status: Acute Assessment and plan: Due to GI bleed Plan as above (4) Liver cirrhosis, alcoholic Current Visit: No Status: Acute Assessment and plan: We will hold metoprolol for now due to low blood pressure. Holding diuretics May need to restart nadolol, spironolactone, and Lasix when patient is stable Patient was counseled to quit drinking Qualifiers: Ascites presence: without ascites Qualified Code(s): K70.30 - Alcoholic cirrhosis of liver without ascites (5) DVT prophylaxis Current Visit: No Status: Acute Assessment and plan: We will avoid any heparin products or anticoagulation for DVT prophylaxis due to GI bleed Will add SCDs - Time Spent With Patient Total time spent is greater than 50% in coordination of care (as documented) at patient's floor/unit and/or counseling patient: Greater than 35 minutes (Critical care time)
--- NOTE | 2018-02-08 15:16 | Gastroenterology Consult Note ---
Date of Encounter: 02/08/18 Time of Encounter: 15:14 - Assessment and plan (1) Upper GI bleed Current Visit: Yes Status: Acute Assessment and plan: - Multiple episodes of upper GI bleeding in the past - Likely secondary to portal hypertensive gastropathy with known history of esophageal varices, status post banding - H/H of 6.9/23.2 on presentation to ED - Patient admits to multiple episodes of hematemesis as well as melena - Started on Protonix, octreotide in emergency room - 2 units of blood ordered, currently transfusing - initially presented hypotensive, however is stable after 1L NS bolus and 2 units PRBCs currently transfusion Plan - Nothing by mouth for EGD tomorrow - Continue Protonix, octreotide - Monitor H/H and transfuse as necessary per primary team - Telemetry. - Patient counseled on alcohol cessation, importance of medication compliance (2) Liver cirrhosis, alcoholic Current Visit: Yes Status: Acute Assessment and plan: - Known history of alcoholic liver cirrhosis - Unfortunately, patient does continue to drink and has had a recent increase in alcohol consumption - He does understand the importance of alcohol cessation however is unwilling to quit at this time - MELD 13 - Mild-moderate fluid wave present on exam. Qualifiers: Ascites presence: with ascites Qualified Code(s): K70.31 - Alcoholic cirrhosis of liver with ascites (3) Lactic acidosis Current Visit: Yes Status: Acute Assessment and plan: - Likely secondary to hypoperfusion in the setting of anemia - Further management per primary team (4) Acute blood loss anemia Current Visit: Yes Status: Acute Assessment and plan: - Secondary to GI bleed as above (5) Alcoholism Current Visit: Yes Status: Chronic Assessment and plan: - Per primary team. (6) Portal hypertensive gastropathy Current Visit: Yes Status: Chronic Assessment and plan: - As above. - Time Spent With Patient Total time spent is greater than 50% in coordination of care (as documented) at patient's floor/unit and/or counseling patient: 25 - 35 minutes GI History of Present Illness - Data of Consult Patient: known to practice within the last 3 years Consult date: 02/08/18 Requesting Physician: Shiraz Persaud MD - Consult Narrative Reason for consult: GI bleed History of present illness: Mr. Wu is a 58 year old male with past medical history of known alcoholic cirrhosis with esophageal varices, CVA, GERD, hypertension, anemia, alcoholism presented to the emergency room with complaint of hematemesis as well as dark tarry stools. Patient states that his symptoms began early this morning. He stated that he noticed dark stools 2 and then began to vomit blood and 3. He states that overall he has probably vomited about a bucket worth of blood. He is well-known to this facility as well as gastroenterology service as he has been admitted multiple times for GI bleeding. He states that he has been treated for an upper GI bleed and was sent to [facility] hepatology upon discharge last time. He has been compliant with these follow-ups. He does admit to associated symptoms of lightheadedness and dizziness after these episodes but denies any symptoms of chest pain, shortness of breath, fevers, chills. He also notes that he has been noncompliant with all his medications for approximately 1 week as they make him nauseous after taking them. Cirrhosis as alcoholic in nature and he states that he does continue to drink. He states that he drinks approximately 2-3 drinks per day but admits to drinking moderately more heavily within the past week due to a friend being in town. He is status post TIPS procedure on 04/01/17 as well as variceal transcatheter embolization. EGD on 03/30/17 shows portal hypertensive gastropathy with Chantelle-Naik tear and large amount of blood in the stomach EGD on 01/28/17 shows type I varices without evidence of bleed Colonoscopy on 02/19/14 shows tubular adenoma in the descending colon, internal hemorrhoids, moderate diverticulosis EGD on 01/15/14 shows monilial esophagitis Past Med Surg Social Fam HX - Past Medical History Medical history: cirrhosis, CVA, GERD, GI bleed, hypertension, liver disease Additional medical history: smoker, alcoholism, anemia, UGI bleed, cirrhosis, and esophageal varices Psychiatric history: no psych history - Past Surgical History Surgical History: orthopedic, other Additional surgical history: Stent on liver - Social History Smoking Status: Current every day smoker Smokeless Tobacco Status: No Alcohol use: heavy Drug use: none - Family History Father Living Status: Hx Family Cardiac Disorders: Yes Mother Living Status: Hx Family Cardiac Disorders: Yes - Gastrointestinal Gastrointestinal: Present: change in bowel habits, diarrhea, hematemesis, melena , nausea, vomiting. Absent: abdominal pain, bloating, coffee ground emesis, constipation, hematochezia - Constitutional Constitutional: no anorexia, no fever(s) - Cardiovascular Cardiovascular ROS: Absent: chest pain - Respiratory Respiratory IM: Absent: dyspnea - Neurological ROS Neurological GI: Present: dizziness. Absent: confusion - Constitutional Vitals: Temp Pulse Resp BP Pulse Ox 98.8 F 78 18 121/85 100 02/08/18 13:25 02/08/18 13:25 02/08/18 13:25 02/08/18 13:25 02/08/18 12:01 Exam: Gen.: Vitals noted. No acute distress. AAOx3. Resting comfortably in bed. HEENT: PERRL/EOMI, oropharynx clear, Normocephalic, atraumatic, MMM. Pale conjunctiva Cardiac: RRR, no murmur, +S1/S2 Pulmonary: CTA bilaterally, no wheezes, rales or rhonchi, equal chest expansion Abdomen: soft, very mildly tender in epigastric region, BS noted, no guarding, no rebound. Positive fluid wave Skin: Angiectasia is present on chest wall Extremities: no BLE edema, nontender calf, no cyanosis or clubbing Neuro: A&Ox3, moves all extremities, no focal deficits Psych: Appropriate mood and behavior Results - Labs CBC & Chem 7: 02/08/18 11:41 02/08/18 11:41 Labs: Last Result Calcium 7.7 mg/dL (8.6-10.3) L 02/08/18 11:41 Troponin I < 0.03 ng/mL (< 0.04) 02/08/18 11:41 Entire Visit Hgb 6.9 g/dL (12.9-16.9) L 02/08/18 11:41 Hct 23.2 % (37.5-50.1) L 02/08/18 11:41 PT 18.0 Seconds (9.4-12.1) H 02/08/18 11:41 - ABG ABG results: PT/INR, D-dimer PT 18.0 Seconds (9.4-12.1) H 02/08/18 11:41 Consult Discharge Plan - Plan Referrals: Miguel Khan DO [Primary Care Provider] - 02/22/18 9:30 am
[2018-02-08 16:46] LABS: Alanine Aminotransferase 20 Units/L (7-52); Albumin 2.3 g/dL (3.5-5.7); Albumin/Globulin Ratio 0.7 (1.1-2.2); Alkaline Phosphatase 178 Units/L (34-104); Aspartate Amino Transferase 43 Units/L (13-39); Bilirubin,Direct 0.5 mg/dL (0.0-0.2); Bilirubin,Indirect 0.6 mg/dL (0.0-1.2); Bilirubin,Total 1.1 mg/dL (0.3-1.0); Globulin 3.3 g/dL (2.4-3.5); Total Protein 5.6 g/dL (6.4-8.9)
--- NOTE | 2018-02-08 17:44 | Electrocardiograph Report ---
[facility] Test Date: 2018-02-08 Pat Name: Jaspal Wu Department: 104 Room: 2N02 Gender: M [employer]: JUNIE : 1960 Requested By: [id number] Order Number: [id number] Reading MD: Lisa Alvarado Measurements Intervals [place] Rate: 91 P: 70 MA: 119 QRS: 71 QRSD: 81 T: 78 QT: 367 QTc: 416 Interpretive Statements SINUS RHYTHM WITH SHORT MA INTERVAL Electronically Signed On 02-08-2018 17:42:56 EDT by Lisa Alvarado
[2018-02-08] MEDS: Octreotide 400 MCG in 0.9 % Sodium Chloride 100 ML IVC SCH (17:58)
[2018-02-08] MEDS: 0.9 % Sodium Chloride 1,000 ML IVC SCH (17:58)
[2018-02-08] MEDS: Pantoprazole 40 MG in 0.9 % Sodium Chloride Mini Bag 100 ML IVC SCH ×2 (18:00→20:05)
[2018-02-08 21:29] LABS: Hematocrit 24.3 % (37.5-50.1); Hemoglobin 7.7 g/dL (12.9-16.9)
[2018-02-08] MEDS ORDERED: 0.9 % Sodium Chloride 250 ML ONE (22:45)
[2018-02-09] MEDS: Octreotide 400 MCG in 0.9 % Sodium Chloride 100 ML IVC SCH ×3 (02:00→20:29)
[2018-02-09] MEDS: Pantoprazole 40 MG in 0.9 % Sodium Chloride Mini Bag 100 ML IVC SCH ×5 (03:00→22:14)
[2018-02-09] MEDS: 0.9 % Sodium Chloride 1,000 ML IVC SCH (04:06)
[2018-02-09 04:21] LABS: Hemoglobin 8.1 g/dL (12.9-16.9); Red Cell Distribution Width 18.6 % (11.5-14.5)
[2018-02-09 04:23] LABS: Basophils % 0.9 %; Eosinophils # 0.2 K/mcL (0.0-0.6); Eosinophils % 4.6 %; Hematocrit 25.8 % (37.5-50.1); Immature Granulocytes % 0.5 % (0-4); Immature Platelets 5.3 % (1.1-6.1); Lymphocytes # 1.2 K/mcL (0.6-4.6); Lymphocytes % 26.8 %; Mean Corpuscular HGB Conc 31.4 g/dL (31.6-35.5); Mean Corpuscular Hemoglobin 30.2 pg (28.0-33.3); Mean Corpuscular Volume 96.3 fL (83.0-100.0); Mean Platelet Volume 11.3 fL (9.4-12.4); Monocytes # 0.5 K/mcL (0.0-1.3); Neutrophils # 2.5 K/mcL (1.6-8.9); Nucleated Red Blood Cells 0.5 /100 WBC (0); Red Blood Count 2.68 M/mcL (4.19-5.50); Segmented Neutrophils % 56.2 %
[2018-02-09 04:27] LABS: INR 1.5; Prothrombin Time 16.4 Seconds (9.4-12.1)
[2018-02-09 04:29] LABS: Platelet Count 82 K/mcL (140-400)
[2018-02-09 04:39] LABS: Alanine Aminotransferase 17 Units/L (7-52); Alanine Aminotransferase 18 Units/L (7-52); Albumin 2.3 g/dL (3.5-5.7); Albumin/Globulin Ratio 0.7 (1.1-2.2); Alkaline Phosphatase 156 Units/L (34-104); Alkaline Phosphatase 163 Units/L (34-104); Aspartate Amino Transferase 43 Units/L (13-39); BUN/Creatinine Ratio 32 (6-26); BUN/Creatinine Ratio 35 (6-26); Bilirubin,Indirect 1.8 mg/dL (0.0-1.2); Bilirubin,Total 2.8 mg/dL (0.3-1.0); Blood Urea Nitrogen 27 mg/dL (6-20); Calcium 7.3 mg/dL (8.6-10.3); Carbon Dioxide 16 mEq/L (23-29); Carbon Dioxide 18 mEq/L (23-29); Chloride 117 mEq/L (98-107); Globulin 3.1 g/dL (2.4-3.5); Glucose 124 mg/dL (70-105); Glucose 125 mg/dL (70-105); Magnesium 1.3 mg/dL (1.6-2.6); Osmolality,Calculated 295 (280-300); Osmolality,Calculated 297 (280-300); Phosphorous 2.7 mg/dL (2.7-4.5); Potassium 4.1 mEq/L (3.5-5.1); Sodium 139 mEq/L (136-145); Sodium 140 mEq/L (136-145); Total Protein 5.4 g/dL (6.4-8.9); eGFR For African Americans > 60 (> 60); eGFR For Non-African Americans > 60 (> 60)
[2018-02-09 04:57] LABS: Anisocytosis 1+ (Not Present); Hypochromasia Present (Not Present); Platelet Estimate Decreased (Normal); Polychromasia 1+ (Not Present)
[2018-02-09] MEDS: Thiamine (B-1) 100 MG TABLET PO SCH (08:05)
[2018-02-09] MEDS: Multivit/Ca/Min/Fe/FA 1 TAB TABLET PO SCH (08:05)
[2018-02-09] MEDS: Folic Acid 1 MG TABLET PO SCH (08:05)
--- NOTE | 2018-02-09 08:57 | Internal Med Progress Note ---
Date of Encounter: 02/09/18 Time of Encounter: 11:00 - Assessment and plan (1) Acute blood loss anemia Current Visit: Yes Status: Acute Assessment and plan: Appreciate with hemoglobin of 6.5 this morning Transfuse an additional 2 units of packed red blood cells; appreciate had already been transfused 3 units of packed red blood cells prior Suspect secondary to GI bleed (2) Upper GI bleed Current Visit: Yes Status: Acute Assessment and plan: GI consult with plans for EGD this afternoon (3) Liver cirrhosis, alcoholic Current Visit: Yes Status: Acute Assessment and plan: Secondary to history of alcohol dependence/abuse Qualifiers: Ascites presence: unspecified Qualified Code(s): K70.30 - Alcoholic cirrhosis of liver without ascites (4) Portal hypertensive gastropathy Current Visit: Yes Status: Chronic Assessment and plan: Secondary to the above (5) Alcoholism Current Visit: Yes Status: Chronic Assessment and plan: Cover with CIWA protocol (6) DVT prophylaxis Current Visit: No Status: Acute Assessment and plan: SCDs - Time Spent With Patient Total time spent is greater than 50% in coordination of care (as documented) at patient's floor/unit and/or counseling patient: - Subjective Interval history: Patient for EGD this afternoon for evaluation of anemia secondary to suspected GI bleed Patient will be transfused 2 additional units of packed red blood cells due to/ U acute blood loss anemia Patient is hemodynamically stable - Constitutional Vitals: Temp Pulse Resp BP Pulse Ox 98.1 F 82 18 93/55 95 02/09/18 06:52 02/09/18 08:08 02/09/18 06:52 02/09/18 06:52 02/09/18 06:52 General appearance: Present: no acute distress - Respiratory Respiratory exam: Present: CTAB. Absent: accessory muscle use, rales, rhonchi, wheezes - Cardiovascular Cardiovascular exam: Present: RRR, +S1, +S2. Absent: diastolic murmur, gallop, rubs, systolic murmur - Skin Skin exam: Present: pallor Internal Medicine: Result - Labs CBC & Chem 7: 02/09/18 15:10 02/09/18 15:10 Labs: Short CBC 02/08/18 02/09/18 Range/Units 21:17 04:05 WBC 4.4 (4.3-11.1) K/mcL Hgb 7.7 L 8.1 L (12.9-16.9) g/dL Hct 24.3 L 25.8 L (37.5-50.1) % Plt Count 82 L (140-400) K/mcL Neutrophils # 2.5 (1.6-8.9) K/mcL BMP 02/09/18 02/09/18 04:05 04:05 Sodium 140 139 Potassium 4.1 4.1 Chloride 117 H 117 H Carbon Dioxide 18 L 16 L BUN 27 H 27 H Creatinine 0.77 0.84 Glucose 124 H 125 H Calcium 7.3 L 7.3 L Liver Function 02/09/18 02/09/18 Range/Units 04:05 04:05 Total Bilirubin 2.8 H 2.8 H (0.3-1.0) mg/dL Direct Bilirubin 1.0 H (0.0-0.2) mg/dL AST 43 H 43 H (13-39) Units/L ALT 17 18 (7-52) Units/L Alkaline Phosphatase 163 H 156 H (34-104) Units/L Albumin 2.3 L 2.3 L (3.5-5.7) g/dL - ABG Interpretation ABG results: PT/INR, D-dimer PT 16.4 Seconds (9.4-12.1) H 02/09/18 04:05 - VTE Reasons for not Prescribing Prophylaxis: Medical contraindication Documentation of Mechanical Device: Intermittent pneumatic compression device Consult Discharge Plan - Plan Referrals: Miguel Khan DO [Primary Care Provider] - 02/22/18 9:30 am
[2018-02-09] MEDS ORDERED: *HR* LORazepam 2 MG/ML VIAL IVP PRN ×3 (14:30)
[2018-02-09] MEDS: Ringers Solution, Lactated 1,000 ML IVC SCH (15:15)
[2018-02-09 15:29] LABS: Basophils % 0.5 %; Hematocrit 20.3 % (37.5-50.1); Mean Corpuscular Hemoglobin 30.4 pg (28.0-33.3); Mean Corpuscular Volume 94.9 fL (83.0-100.0); Red Blood Count 2.14 M/mcL (4.19-5.50); Red Cell Distribution Width 18.7 % (11.5-14.5)
[2018-02-09 15:31] LABS: Eosinophils # 0.2 K/mcL (0.0-0.6); Eosinophils % 4.3 %; Hemoglobin 6.5 g/dL (12.9-16.9); Immature Granulocytes % 0.5 % (0-4); Lymphocytes % 25.4 %; Mean Platelet Volume 12.1 fL (9.4-12.4); Monocytes # 0.5 K/mcL (0.0-1.3); Monocytes % 11.1 %; Neutrophils # 2.4 K/mcL (1.6-8.9); Segmented Neutrophils % 58.2 %
[2018-02-09 15:41] LABS: BUN/Creatinine Ratio 30 (6-26); Blood Urea Nitrogen 26 mg/dL (6-20); Calcium 7.4 mg/dL (8.6-10.3); Carbon Dioxide 18 mEq/L (23-29); Chloride 117 mEq/L (98-107); Glucose 113 mg/dL (70-105); Osmolality,Calculated 296 (280-300); Potassium 4.1 mEq/L (3.5-5.1); Sodium 140 mEq/L (136-145); eGFR For African Americans > 60 (> 60); eGFR For Non-African Americans > 60 (> 60)
[2018-02-09 15:59] LABS: Platelet Count 75 K/mcL (140-400)
[2018-02-09] MEDS ORDERED: 0.9 % Sodium Chloride 250 ML ONE ×2 (17:27→20:16)
[2018-02-09] MEDS ORDERED: *HR* Propofol 200 MG/20 ML VIAL IVP ONE ×2 (18:12→19:00)
--- NOTE | 2018-02-09 18:12 | Anesthesia Evaluation PreOp ---
Date of Encounter: 02/09/18 Time of Encounter: 18:46 - Past History Planned Operation: EGD Cardiac History: HTN Pulmonary History: Smoker (41 years), COPD MEDICAID BILLER History: CVA (mild right residual deficit) Other Medical History: Hepatic (cirrhosis), GERD, Other (esophageal varices) Anesthesia History: No Prior Anesthetic Complications, Past Anesthesia Alcohol Use: heavy Drug use: none Medications and Allergies Folic Acid 1 mg PO DAILY #30 tablet 01/29/17 [Rx] Multivitamin [Multivitamins] 1 each PO DAILY #30 capsule 01/29/17 [Rx] Thiamine (B-1) [Vitamin B-1] 100 mg PO DAILY #30 tablet 01/29/17 [Rx] Ferrous Fumarate [Ferrocite] 324 mg PO DAILY 03/30/17 [History] Furosemide [Lasix] 20 mg PO DAILY 10/13/17 [History] Omeprazole [PriLOSEC] 40 mg PO DAILY 10/13/17 [History] Spironolactone [Aldactone] 100 mg PO DAILY 10/13/17 [History] Nadolol [Corgard] 40 mg PO DAILY 30 Days #30 tablet 10/17/17 [Rx] 3 Allergy/AdvReac Type Severity Reaction Status Date / Time No Known Allergies Allergy Verified 10/13/17 12:06 - Meds/Allergy Pre-op Review Medications Reviewed: Yes Allergies Reviewed: Yes Beta Blockers on Current Med List: Yes If Beta Blockers taken, Date/Time (Last Dose taken): last taken 7 days ago Anesthesia Results - Labs 02/09/18 15:10 02/09/18 15:10 - Imaging EKG: report reviewed (02/08/2018 SINUS RHYTHM WITH SHORT [place] INTERVAL) Anesthesia Exam Vital Signs/O2 Sat, Most Current Temp Pulse Resp BP Pulse Ox 97.2 F L 60 18 135/78 98 02/09/18 18:05 02/09/18 18:05 02/09/18 18:05 02/09/18 18:05 02/09/18 18:05 Height: 5'10"/1.78m Weight: 198 lbs/90 kg NPO (# of Hours): 8 Pain Scale: 0 Pain Scale Used: Numeric (1 - 10) - HEENT Pupil (Motor): EOMI Mallampati: III Teeth: Normal Oral Opening: Greater than 3 - MEDICAID BILLER LOC: Oriented MEDICAID BILLER Motor: Normal LUE, Normal LLE, Normal Face, Deficit RUE, Deficit RLE MEDICAID BILLER Sensory: Normal: RUE, LUE, RLE, LLE, Face - Cardiac Rhythm: Regular Murmur: None - Pulmonary Breath Sounds: bilateral Clear Respiratory Effort: Symmetrical Anesthesia Assess/Plan ASA Score: 3 Modified [place] Scale for Level of Consciousness: Cooperative, oriented, and tranquil Anesthetic Plan: General, MAC Monitoring Plan: Standard Monitors
[2018-02-09] MEDS ORDERED: Lidocaine -MPF 2% 2 ML VIAL ONE (18:13)
[2018-02-09] MEDS ORDERED: Furosemide 20 MG/2 ML VIAL IVP ONE (18:27)
[2018-02-09] MEDS ORDERED: OXYCODONE Oral CONC 10 MG/0.5 ML ORAL.SYG SL PRN (20:51)
[2018-02-09] MEDS ORDERED: Acetaminophen IV 500 MG/50 ML INFUS..BTL IVPB ONE (20:53)
[2018-02-09 21:00] LABS: Phosphorous 3.1 mg/dL (2.7-4.5)
[2018-02-10 00:58] LABS: Hematocrit 26.1 % (37.5-50.1)
[2018-02-10 01:04] LABS: Hemoglobin 8.5 g/dL (12.9-16.9)
[2018-02-10] MEDS: Pantoprazole 40 MG in 0.9 % Sodium Chloride Mini Bag 100 ML IVC SCH ×4 (03:15→20:46)
[2018-02-10] MEDS: Ringers Solution, Lactated 1,000 ML IVC SCH (03:15)
[2018-02-10] MEDS: Octreotide 400 MCG in 0.9 % Sodium Chloride 100 ML IVC SCH ×3 (03:15→20:49)
[2018-02-10 04:08] LABS: Basophils % 0.6 %; Eosinophils # 0.2 K/mcL (0.0-0.6); Eosinophils % 4.9 %; Hematocrit 25.1 % (37.5-50.1); Hemoglobin 8.1 g/dL (12.9-16.9); Immature Granulocytes % 0.4 % (0-4); Lymphocytes # 1.1 K/mcL (0.6-4.6); Lymphocytes % 22.8 %; Mean Corpuscular HGB Conc 32.3 g/dL (31.6-35.5); Mean Corpuscular Hemoglobin 30.5 pg (28.0-33.3); Mean Corpuscular Volume 94.4 fL (83.0-100.0); Mean Platelet Volume 11.1 fL (9.4-12.4); Monocytes # 0.6 K/mcL (0.0-1.3); Monocytes % 11.9 %; Neutrophils # 2.9 K/mcL (1.6-8.9); Red Blood Count 2.66 M/mcL (4.19-5.50); Red Cell Distribution Width 18.3 % (11.5-14.5); Segmented Neutrophils % 59.4 %
[2018-02-10 04:09] LABS: Platelet Count 85 K/mcL (140-400)
[2018-02-10 04:31] LABS: BUN/Creatinine Ratio 23 (6-26); Blood Urea Nitrogen 19 mg/dL (6-20); Calcium 7.5 mg/dL (8.6-10.3); Carbon Dioxide 23 mEq/L (23-29); Chloride 111 mEq/L (98-107); Glucose 123 mg/dL (70-105); Osmolality,Calculated 292 (280-300); Potassium 3.7 mEq/L (3.5-5.1); Sodium 139 mEq/L (136-145); eGFR For African Americans > 60 (> 60); eGFR For Non-African Americans > 60 (> 60)
[2018-02-10 05:35] LABS: Magnesium 1.7 mg/dL (1.6-2.6); Phosphorous 3.4 mg/dL (2.7-4.5)
[2018-02-10] MEDS: Multivit/Ca/Min/Fe/FA 1 TAB TABLET PO SCH (07:45)
[2018-02-10] MEDS: Folic Acid 1 MG TABLET PO SCH (07:45)
[2018-02-10] MEDS: Thiamine (B-1) 100 MG TABLET PO SCH (07:45)
--- NOTE | 2018-02-10 09:00 | Internal Med Progress Note ---
Date of Encounter: 02/10/18 Time of Encounter: 11:00 - Assessment and plan (1) Upper GI bleed Current Visit: Yes Status: Acute Assessment and plan: GI consult for recommendations of EEG the which showed grade 2 esophageal varices which were completely eradicated with banding; portal hypertensive gastropathy also noted Recommendations now for a nuclear medicine bleeding scan Patient is hemodynamically stable status post 6 units of packed red blood cells (2) Acute blood loss anemia Current Visit: Yes Status: Acute Assessment and plan: Patient status post 6 units of packed red blood cells Suspect secondary to GI bleed (3) Liver cirrhosis, alcoholic Current Visit: Yes Status: Acute Assessment and plan: Secondary to history of alcohol dependence/abuse Qualifiers: Ascites presence: unspecified Qualified Code(s): K70.30 - Alcoholic cirrhosis of liver without ascites (4) Portal hypertensive gastropathy Current Visit: Yes Status: Chronic Assessment and plan: Secondary to the above (5) Alcoholism Current Visit: Yes Status: Chronic Assessment and plan: Cover with CIWA protocol (6) DVT prophylaxis Current Visit: No Status: Acute Assessment and plan: SCDs - Time Spent With Patient Total time spent is greater than 50% in coordination of care (as documented) at patient's floor/unit and/or counseling patient: - Subjective Interval history: Patient with acute on chronic anemia which is stable status post 6 units of packed red blood cells Patient had EGD which showed grade 2 esophageal varices which were completely eradicated and banded. Patient now for nuclear medicine bleeding scan per GI - Constitutional Vitals: Temp Pulse Resp BP Pulse Ox 98.6 F 95 16 118/74 94 02/10/18 07:02 02/10/18 07:53 02/10/18 07:02 02/10/18 07:02 02/10/18 07:02 General appearance: Present: no acute distress - Respiratory Respiratory exam: Present: CTAB. Absent: accessory muscle use, rales, rhonchi, wheezes - Cardiovascular Cardiovascular exam: Present: RRR, +S1, +S2. Absent: diastolic murmur, gallop, rubs, systolic murmur - Skin Skin exam: Present: pallor Internal Medicine: Result - Labs CBC & Chem 7: 02/10/18 03:55 02/10/18 13:04 Labs: Short CBC 02/09/18 02/09/18 02/10/18 Range/Units 15:10 23:30 03:55 WBC 4.1 L 4.9 (4.3-11.1) K/mcL Hgb 6.5 L D 8.5 L D 8.1 L (12.9-16.9) g/dL Hct 20.3 L 26.1 L 25.1 L (37.5-50.1) % Plt Count 75 L 85 L (140-400) K/mcL Neutrophils # 2.4 2.9 (1.6-8.9) K/mcL BMP 02/09/18 02/10/18 15:10 03:55 Sodium 140 139 Potassium 4.1 3.7 Chloride 117 H 111 H Carbon Dioxide 18 L 23 BUN 26 H 19 Creatinine 0.87 0.84 Glucose 113 H 123 H Calcium 7.4 L 7.5 L - ABG Interpretation ABG results: PT/INR, D-dimer PT 16.4 Seconds (9.4-12.1) H 02/09/18 04:05 - VTE Reasons for not Prescribing Prophylaxis: Medical contraindication Documentation of Mechanical Device: Intermittent pneumatic compression device Consult Discharge Plan - Plan Referrals: Miguel Khan DO [Primary Care Provider] - 02/22/18 9:30 am
[2018-02-10] MEDS ORDERED: 0.9 % Sodium Chloride 250 ML ONE (09:07)
[2018-02-11] MEDS: Pantoprazole 40 MG in 0.9 % Sodium Chloride Mini Bag 100 ML IVC SCH ×3 (02:08→20:01)
[2018-02-11 05:08] LABS: VBG Ionized Calcium 1.11 mmol/L (1.15-1.35)
[2018-02-11 05:11] LABS: Hemoglobin 8.9 g/dL (12.9-16.9); Mean Platelet Volume 11.4 fL (9.4-12.4); Monocytes % 12.8 %
[2018-02-11 05:13] LABS: Basophils # 0.1 K/mcL (0.0-0.2); Basophils % 1.1 %; Eosinophils # 0.3 K/mcL (0.0-0.6); Eosinophils % 6.3 %; Hematocrit 27.6 % (37.5-50.1); Immature Granulocytes % 0.4 % (0-4); Immature Platelets 7.1 % (1.1-6.1); Lymphocytes % 22.2 %; Mean Corpuscular HGB Conc 32.2 g/dL (31.6-35.5); Mean Corpuscular Hemoglobin 30.2 pg (28.0-33.3); Mean Corpuscular Volume 93.6 fL (83.0-100.0); Monocytes # 0.6 K/mcL (0.0-1.3); Neutrophils # 2.6 K/mcL (1.6-8.9); Red Blood Count 2.95 M/mcL (4.19-5.50); Red Cell Distribution Width 18.5 % (11.5-14.5); Segmented Neutrophils % 57.2 %
[2018-02-11 05:30] LABS: BUN/Creatinine Ratio 12 (6-26); Blood Urea Nitrogen 9 mg/dL (6-20); Calcium 7.6 mg/dL (8.6-10.3); Carbon Dioxide 24 mEq/L (23-29); Chloride 111 mEq/L (98-107); Glucose 108 mg/dL (70-105); Magnesium 1.7 mg/dL (1.6-2.6); Osmolality,Calculated 285 (280-300); Phosphorous 3.1 mg/dL (2.7-4.5); Potassium 3.7 mEq/L (3.5-5.1); Sodium 138 mEq/L (136-145); eGFR For African Americans > 60 (> 60); eGFR For Non-African Americans > 60 (> 60)
[2018-02-11 05:36] LABS: Platelet Count 97 K/mcL (140-400)
[2018-02-11] MEDS: Octreotide 400 MCG in 0.9 % Sodium Chloride 100 ML IVC SCH ×2 (06:02→19:11)
[2018-02-11 06:23] LABS: Hypochromasia Present (Not Present); Macrocytosis Present (Not Present)
[2018-02-11 06:24] LABS: Anisocytosis 1+ (Not Present); Platelet Estimate Slight Decrease (Normal); Polychromasia 1+ (Not Present)
[2018-02-11] MEDS: Multivit/Ca/Min/Fe/FA 1 TAB TABLET PO SCH (08:20)
[2018-02-11] MEDS: Thiamine (B-1) 100 MG TABLET PO SCH (08:20)
[2018-02-11] MEDS: Folic Acid 1 MG TABLET PO SCH (08:20)
--- NOTE | 2018-02-11 09:11 | Internal Med Progress Note ---
Date of Encounter: 02/11/18 Time of Encounter: 11:00 - Assessment and plan (1) Upper GI bleed Current Visit: Yes Status: Acute Assessment and plan: GI consult for recommendations of EEG the which showed grade 2 esophageal varices which were completely eradicated with banding; portal hypertensive gastropathy also noted Recommendations now for a nuclear medicine bleeding scan Patient is hemodynamically stable status post 6 units of packed red blood cells (2) Acute blood loss anemia Current Visit: Yes Status: Acute Assessment and plan: Patient status post 6 units of packed red blood cells Suspect secondary to GI bleed (3) Liver cirrhosis, alcoholic Current Visit: Yes Status: Acute Assessment and plan: Secondary to history of alcohol dependence/abuse Qualifiers: Ascites presence: unspecified Qualified Code(s): K70.30 - Alcoholic cirrhosis of liver without ascites (4) Portal hypertensive gastropathy Current Visit: Yes Status: Chronic Assessment and plan: Secondary to the above (5) Alcoholism Current Visit: Yes Status: Chronic Assessment and plan: Cover with CIWA protocol (6) DVT prophylaxis Current Visit: No Status: Acute Assessment and plan: SCDs - Time Spent With Patient Total time spent is greater than 50% in coordination of care (as documented) at patient's floor/unit and/or counseling patient: - Subjective Interval history: Patient with acute on chronic anemia which is stable status post 6 units of packed red blood cells Patient had EGD which showed grade 2 esophageal varices which were completely eradicated and banded. Patient now for nuclear medicine bleeding scan per GI on 02/11/18 - Constitutional Vitals: Temp Pulse Resp BP Pulse Ox 98.2 F 51 16 110/57 90 02/11/18 07:38 02/11/18 08:29 02/11/18 07:38 02/11/18 07:38 02/11/18 07:38 General appearance: Present: no acute distress - Respiratory Respiratory exam: Present: CTAB. Absent: accessory muscle use, rales, rhonchi, wheezes - Cardiovascular Cardiovascular exam: Present: RRR, +S1, +S2. Absent: diastolic murmur, gallop, rubs, systolic murmur - GI/Abdominal GI/Abdominal exam: Present: normal bowel sounds, soft, no peritoneal signs. Absent: distended, tenderness Internal Medicine: Result - Labs CBC & Chem 7: 02/11/18 04:50 02/11/18 11:27 Labs: Short CBC 02/11/18 Range/Units 04:50 WBC 4.5 (4.3-11.1) K/mcL Hgb 8.9 L (12.9-16.9) g/dL Hct 27.6 L (37.5-50.1) % Plt Count 97 L (140-400) K/mcL Neutrophils # 2.6 (1.6-8.9) K/mcL BMP 02/10/18 02/11/18 13:04 04:50 Sodium 138 Potassium 4.0 3.7 Chloride 111 H Carbon Dioxide 24 BUN 9 Creatinine 0.73 Glucose 108 H Calcium 7.6 L - ABG Interpretation ABG results: PT/INR, D-dimer PT 16.4 Seconds (9.4-12.1) H 02/09/18 04:05 - VTE Reasons for not Prescribing Prophylaxis: Medical contraindication Documentation of Mechanical Device: Intermittent pneumatic compression device Consult Discharge Plan - Plan Referrals: Miguel Khan DO [Primary Care Provider] - 02/22/18 9:30 am
[2018-02-11] MEDS ORDERED: *HR* Propofol 200 MG/20 ML VIAL IVP ONE ×2 (13:19→13:54)
--- NOTE | 2018-02-11 13:19 | Anesthesia Evaluation PreOp ---
Date of Encounter: 02/11/18 Time of Encounter: 13:20 - Past History Planned Operation: EGD for upper GI bleed Cardiac History: HTN Pulmonary History: Smoker [employer]ER History: CVA Other Medical History: Hepatic (alcoholic cirrhosis, admitted multiple times for GI bleed, melena, etc. Was hypotensive on admission, Hgb 6.9, was transfused for two units.), Other Anesthesia History: No Prior Anesthetic Complications, Past Anesthesia (Has had multiple endoscopic procedures due to recurrent GI bleed) Alcohol Use: heavy (6-8 beers) Drug use: none Medications and Allergies Folic Acid 1 mg PO DAILY #30 tablet 01/29/17 [Rx] Multivitamin [Multivitamins] 1 each PO DAILY #30 capsule 01/29/17 [Rx] Thiamine (B-1) [Vitamin B-1] 100 mg PO DAILY #30 tablet 01/29/17 [Rx] Ferrous Fumarate [Ferrocite] 324 mg PO DAILY 03/30/17 [History] Furosemide [Lasix] 20 mg PO DAILY 10/13/17 [History] Omeprazole [PriLOSEC] 40 mg PO DAILY 10/13/17 [History] Spironolactone [Aldactone] 100 mg PO DAILY 10/13/17 [History] Nadolol [Corgard] 40 mg PO DAILY 30 Days #30 tablet 10/17/17 [Rx] 3 Allergy/AdvReac Type Severity Reaction Status Date / Time No Known Allergies Allergy Verified 10/13/17 12:06 - Meds/Allergy Pre-op Review Medications Reviewed: Yes Allergies Reviewed: Yes Beta Blockers on Current Med List: Yes (at 0820) Anesthesia Results - Labs 02/11/18 04:50 02/11/18 04:50 - Imaging EKG: report reviewed (sinus rhythm) Anesthesia Exam Selected Entries 02/11/18 11:03 Temperature 98.2 F Pulse Rate 53 Respiratory Rate 18 Blood Pressure 139/69 O2 Sat by Pulse Oximetry 93 Weight: 93 kg NPO (# of Hours): over 8 hours - HEENT Pupil (Motor): Pupils equal Mallampati: II Teeth: Normal Oral Opening: Greater than 3 - Cardiac Rhythm: Regular Murmur: None - Pulmonary Breath Sounds: bilateral Clear Respiratory Effort: Symmetrical Anesthesia Assess/Plan ASA Score: 3 Modified [place] Scale for Level of Consciousness: Cooperative, oriented, and tranquil Anesthetic Plan: MAC Monitoring Plan: Standard Monitors Recovery Plan: Other (Discussed MAC anesthesia, agreed to proceed.)
[2018-02-11] MEDS ORDERED: Lidocaine -MPF 2% 2 ML VIAL ONE (13:22)
[2018-02-11 13:42] LABS: Magnesium 2.1 mg/dL (1.6-2.6); Potassium 4.4 mEq/L (3.5-5.1)
[2018-02-12] MEDS: Pantoprazole 40 MG in 0.9 % Sodium Chloride Mini Bag 100 ML IVC SCH ×2 (01:11→07:43)
[2018-02-12] MEDS: Octreotide 400 MCG in 0.9 % Sodium Chloride 100 ML IVC SCH (02:52)
[2018-02-12 03:51] LABS: Red Cell Distribution Width 18.6 % (11.5-14.5)
[2018-02-12 03:53] LABS: VBG Ionized Calcium 1.08 mmol/L (1.15-1.35)
[2018-02-12 03:56] LABS: Basophils % 0.7 %; Eosinophils # 0.2 K/mcL (0.0-0.6); Eosinophils % 4.2 %; Hematocrit 27.9 % (37.5-50.1); Immature Granulocytes % 0.2 % (0-4); Immature Platelets 7.6 % (1.1-6.1); Lymphocytes % 21.6 %; Mean Corpuscular HGB Conc 32.3 g/dL (31.6-35.5); Mean Corpuscular Hemoglobin 31.3 pg (28.0-33.3); Mean Corpuscular Volume 96.9 fL (83.0-100.0); Mean Platelet Volume 11.5 fL (9.4-12.4); Monocytes # 0.5 K/mcL (0.0-1.3); Monocytes % 11.7 %; Neutrophils # 2.8 K/mcL (1.6-8.9); Platelet Count 88 K/mcL (140-400); Red Blood Count 2.88 M/mcL (4.19-5.50); Segmented Neutrophils % 61.6 %
[2018-02-12 04:04] LABS: Magnesium 1.6 mg/dL (1.6-2.6); Phosphorous 3.9 mg/dL (2.7-4.5); Potassium 4.1 mEq/L (3.5-5.1)
[2018-02-12 04:11] LABS: Reactive Lymphocytes Present (Not Present)
[2018-02-12 04:12] LABS: Anisocytosis 1+ (Not Present); Macrocytosis Present (Not Present); Platelet Estimate Decreased (Normal)
[2018-02-12 07:14] VITALS: BP 116/69
[2018-02-12] MEDS: Multivit/Ca/Min/Fe/FA 1 TAB TABLET PO SCH (07:43)
[2018-02-12] MEDS: Folic Acid 1 MG TABLET PO SCH (07:43)
[2018-02-12] MEDS: Thiamine (B-1) 100 MG TABLET PO SCH (07:43)
--- NOTE | 2018-02-12 12:23 | Discharge Summary ---
- NOTES TO OUTPATIENT PROVIDER Notes to Outpatient Provider: Follow-up with GI for recurrent upper GI bleeds. He will need to follow up with primary care provider for monitoring of anemia. Orders not resulted at time of discharge: Pending orders 02/12/18 14:00 Magnesium Routine Date of Encounter: 02/12/18 Time of Encounter: 11:00 - Discharge Diagnosis (1) Upper GI bleed Priority: Primary Status: Acute (2) Acute blood loss anemia Priority: Primary Status: Acute (3) Liver cirrhosis, alcoholic Priority: Secondary Status: Acute Qualifiers: Ascites presence: unspecified Qualified Code(s): K70.30 - Alcoholic cirrhosis of liver without ascites (4) Portal hypertensive gastropathy Priority: Primary Status: Chronic (5) Alcoholism Priority: Primary Status: Chronic Hospital course: Patient is a 58-year-old male with past medical history significant for liver cirrhosis, esophageal varices, alcohol dependence/abuse and upper GI bleeds who presents to the ER on 02/08/18 due to hematemesis and melena. Patient reported of having melenic stools 1 day prior to admission; he reported 2 episodes in addition to hematemesis. Patient also reported of mild abdominal pain. Patient decided to go to the ER for evaluation. In the ER, patient was found to be hypotensive but did not respond to IV fluid resuscitation. Patients hemoglobin was found to be 6.9 and was transfused 2 units of packed red blood cells. Patient was admitted to the medical surgical floor for further management and evaluation. During patients hospital stay, GI was consulted with recommendations for EGD which showed 2 esophageal varices which were banded. Patient was also noted to have portal hypertensive gastropathy. Patient received a total of 6 units of packed red blood cells and his hemoglobin remained stable. He was also treated with Octreotide and Protonix infusion. Patient will be discharged to follow-up with GI as an outpatient. - Time Spent with Patient Total time spent providing and/or coordinating discharge services: Less than 30 minutes - Discharge Medications Home Medications: Folic Acid 1 mg PO DAILY #30 tablet 01/29/17 [Rx] Multivitamin [Multivitamins] 1 each PO DAILY #30 capsule 01/29/17 [Rx] Thiamine (B-1) [Vitamin B-1] 100 mg PO DAILY #30 tablet 01/29/17 [Rx] Ferrous Fumarate [Ferrocite] 324 mg PO DAILY 03/30/17 [History] Furosemide [Lasix] 20 mg PO DAILY 10/13/17 [History] Omeprazole [PriLOSEC] 40 mg PO DAILY 10/13/17 [History] Spironolactone [Aldactone] 100 mg PO DAILY 10/13/17 [History] Nadolol [Corgard] 40 mg PO DAILY 30 Days #30 tablet 10/17/17 [Rx] Allergies/Adverse Reactions: 3 Allergy/AdvReac Type Severity Reaction Status Date / Time No Known Allergies Allergy Verified 10/13/17 12:06 Date of admission: 02/08/18 14:47 Primary care physician: Miguel Khan, Consults: 02/08/18 17:39 Consult to Duck Bill Operator [CONS] Routine Reason for SW Consult: poa/living will. 02/09/18 17:04 Consult to Invasive Line Access Team [CONS] Routine Reason for Consult: Limited vasc access, multiple drips, electrolyte protocol , and blood products Line Type: EPIV - Constitutional Vitals: Temp Pulse Resp BP Pulse Ox 98.5 F 52 16 116/69 93 02/12/18 07:13 02/12/18 08:03 02/12/18 07:13 02/12/18 07:13 02/12/18 07:13 General appearance: Present: no acute distress - Respiratory Respiratory exam: Present: CTAB. Absent: accessory muscle use, rales, rhonchi, wheezes - Cardiovascular Cardiovascular exam: Present: RRR, +S1, +S2. Absent: diastolic murmur, gallop, rubs, systolic murmur - Patient Status Disposition: Home, Self-Care Condition: Good - Discharge Instructions Instructions: Gastrointestinal Bleeding (DC), Anemia (DC) Follow Up With: Chaz Valadez MD [Partnered Physician] - (They will call patient at home and set up an appointment) Miguel Khan DO [Primary Care Provider] - 02/22/18 9:30 am Additional Instructions: Advance activity and diet as tolerated. Follow up with your family physician as scheduled. GI office will call possibly Thursday to schedule your follow-up appointment. Return to the ED if your symptoms return. - VTE Reasons for not Prescribing Prophylaxis: Medical contraindication Documentation of Mechanical Device: Intermittent pneumatic compression device
[2018-02-12] MEDS ORDERED: Pantoprazole 40 MG VIAL IVP SCH (18:00)
== END 2018-02-12 12:59 | disposition home or self-care (01) | DRG 369 ==
LOC: 3ANU 11:00 → EMEROO 11:00 → SUATTDRO 14:47 → 2NNU 15:24
PROVIDERS: ADMIT Internal Medicine; ATTEND Hospitalist

== ENCOUNTER 2018-06-05 16:25 | Inpatient (IN) ==
[2018-06-05] MEDS ORDERED: Ondansetron 4 MG/2 ML VIAL ONE ×4 (16:31→18:45)
[2018-06-05] MEDS ORDERED: Octreotide 50 MCG/ML SYRINGE IVP ONE (16:33)
[2018-06-05] MEDS ORDERED: 0.9 % Sodium Chloride 1,000 ML IVC ONE (16:33)
[2018-06-05] MEDS ORDERED: Pantoprazole 40 MG VIAL IVP ONE (16:38)
[2018-06-05] MEDS: Ondansetron 4 MG/2 ML VIAL IVP ONE ×2 (16:40→16:59)
[2018-06-05] MEDS ORDERED: 0.9 % Sodium Chloride 2,000 ML ONE (16:42)
--- NOTE | 2018-06-05 16:43 | Emergency Department Note ---
Disposition Clinical Impression: Upper GI bleed Disposition: Admitted As Inpatient Condition: Fair Forms: ED Satisfaction Letter Time of Disposition: 16:43 GI Bleed HPI - General Chief complaint: ED GI Bleed Stated complaint: vomiting blood Time Seen by Provider: 06/05/18 16:32 Source: patient, EMS Limitations: no limitations - Related Data Home Medications Medication Instructions Recorded Confirmed Furosemide [Lasix] 20 mg PO DAILY 10/13/17 04/29/18 Omeprazole [PriLOSEC] 40 mg PO DAILY 10/13/17 04/29/18 Spironolactone [Aldactone] 100 mg PO DAILY 10/13/17 04/29/18 Magnesium Oxide [Magnesium] 400 mg PO DAILY 04/29/18 04/29/18 Previous Rx's Medication Instructions Recorded Folic Acid 1 mg PO DAILY #30 tablet 01/29/17 Nadolol [Corgard] 40 mg PO DAILY 30 Days #30 tablet 10/17/17 OxyCODONE/APAP 5/325 [Percocet 1 each PO Q6HR PRN 7 Days #24 04/29/18 5/325 MG] tablet Allergies Allergy/AdvReac Type Severity Reaction Status Date / Time No Known Allergies Allergy Verified 04/29/18 09:35 Past Medical History - Past Medical History Medical history: Reports: cirrhosis, CVA, GERD, GI bleed, hypertension, liver disease Surgical history: Reports: orthopedic, other Psychiatric history: Reports: no psych history - Social History Smoking Status: Current every day smoker Smokeless Tobacco Status: No Alcohol use: Reports: heavy Drug use: Reports: none Physical Exam - General Limitations: no limitations General appearance: alert, in no apparent distress Course - Consultations Consultation #1: discussed case with Dr. Valadez and he is agreeable to taking patinet to the OR for GI bleed. We will discuss with ICU for admission. 4 unit trauma blood ordered, octreotide ordered, respiratory at beside, IV placed. Time: 16:38 Consultation #2: discussed case with Dr. Rutherford and she has accepted aptient to the ICU after the OR Time: 16:54 Vital Signs Temperature 97.5 F L 06/05/18 16:26 Pulse Rate 70 06/05/18 16:26 Respiratory Rate 18 06/05/18 16:26 Blood Pressure 71/54 06/05/18 16:26 O2 Sat by Pulse Oximetry 99 06/05/18 16:26 Temperature 97.4 F L 06/05/18 16:45 Pulse Rate 74 06/05/18 16:45 Respiratory Rate 18 06/05/18 16:45 Blood Pressure 108/62 06/05/18 16:45 O2 Sat by Pulse Oximetry 96 06/05/18 16:45 Oxygen Delivery Oxygen Delivery Room Air Attestation Statement - Attestation Attestation: I examined this patient and my medical decision-making was reviewed with the Resident Physician. I agree with the documented findings, disposition and treatment plan as described except to the extent set forth below. 58 year old male presents to the ED with complaints of acute GI bleed and has a history fof liver cirrhosiss and has required variceal banding in the past by Dr. Valadez. Leola states that in the past 1.5 hours he has been vomiting blood about 1L wiht nausea and epigastric pain an din the past one week he has been experincing dark stools. Patient is alert and oriented appears pain with a distended abdomen. Patient will need trauma blood in addition to emergently taken to the OR for endodscopy for variceal banding. Leola originally came in at 71/42 but is now 100/80s
[2018-06-05] MEDS ORDERED: cefTRIAXone 1,000 MG in Water for inj. (sterile) 20 ML 10 ML IVP ONE (16:54)
[2018-06-05] MEDS ORDERED: Ondansetron 4 MG/2 ML VIAL IVP ONE (17:05)
[2018-06-05 17:07] LABS: Basophils # 0.1 K/mcL (0.0-0.2); Basophils % 0.7 %; Eosinophils # 0.2 K/mcL (0.0-0.6); Eosinophils % 1.9 %; Hematocrit 21.3 % (37.5-50.1); Hemoglobin 6.2 g/dL (12.9-16.9); Immature Granulocytes % 0.3 % (0-4); Lymphocytes % 11.2 %; Mean Corpuscular HGB Conc 29.1 g/dL (31.6-35.5); Mean Corpuscular Hemoglobin 25.9 pg (28.0-33.3); Mean Corpuscular Volume 89.1 fL (83.0-100.0); Mean Platelet Volume 10.7 fL (9.4-12.4); Monocytes # 0.7 K/mcL (0.0-1.3); Neutrophils # 6.9 K/mcL (1.6-8.9); Platelet Count 163 K/mcL (140-400); Red Blood Count 2.39 M/mcL (4.19-5.50); Red Cell Distribution Width 21.5 % (11.5-14.5); Segmented Neutrophils % 77.9 %
[2018-06-05] MEDS ORDERED: *HR* Promethazine 25 MG/ML VIAL ONE (17:14)
[2018-06-05 17:15] LABS: INR 1.4
[2018-06-05 17:18] LABS: Activated Partial Thrombo Time 27.1 Seconds (26.0-36.0)
[2018-06-05] MEDS ORDERED: *HR* Promethazine 25 MG/ML VIAL IVP ONE (17:20)
[2018-06-05 17:29] LABS: Alanine Aminotransferase 23 Units/L (7-52); Albumin 2.2 g/dL (3.5-5.7); Albumin/Globulin Ratio 0.7 (1.1-2.2); Alkaline Phosphatase 194 Units/L (34-104); Aspartate Amino Transferase 58 Units/L (13-39); BUN/Creatinine Ratio 24 (6-26); Bilirubin,Total 2.3 mg/dL (0.3-1.0); Blood Urea Nitrogen 21 mg/dL (6-20); Calcium 7.5 mg/dL (8.6-10.3); Carbon Dioxide 20 mEq/L (23-29); Chloride 109 mEq/L (98-107); Globulin 3.3 g/dL (2.4-3.5); Glucose 178 mg/dL (70-105); Lipase 45 Units/L (11-82); Osmolality,Calculated 303 (280-300); Potassium 4.5 mEq/L (3.5-5.1); Sodium 143 mEq/L (136-145); Total Protein 5.5 g/dL (6.4-8.9); Troponin I < 0.03 ng/mL (< 0.04); eGFR For Non-African Americans > 60 (> 60)
[2018-06-05] MEDS ORDERED: Heparin 1,000 UNITS/500 mL 500 ML ONE (17:42)
[2018-06-05] MEDS ORDERED: Metoclopramide 10 MG/2 ML VIAL IVP ONE (17:45)
[2018-06-05] MEDS ORDERED: Lidocaine -MPF 1% 5 ML AMPUL ONE (18:00)
[2018-06-05] MEDS ORDERED: *HR* Etomidate 40 MG/20 ML VIAL IVP ONE (18:00)
[2018-06-05] MEDS ORDERED: *HR* Phenylephrine 10 MG/ML VIAL ONE (18:00)
[2018-06-05] MEDS ORDERED: *HR* Succinylcholine 200 MG/10 ML VIAL IVP ONE (18:00)
[2018-06-05] MEDS: Octreotide 400 MCG in 0.9 % Sodium Chloride 100 ML IVC SCH (18:09)
[2018-06-05] MEDS ORDERED: Albuterol 2.5 MG/3 ML NEBULIZER IH ONE ×2 (18:18→22:18)
--- NOTE | 2018-06-05 18:20 | Emergency Department Note ---
Disposition Clinical Impression: Upper GI bleed Disposition: Admitted As Inpatient Condition: Fair Forms: ED Satisfaction Letter General Adult HPI - General Chief complaint: ED GI Bleed Stated complaint: vomiting blood Time Seen by Provider: 06/05/18 16:32 Source: patient, EMS Mode of arrival: EMS Limitations: no limitations Nursing Notes Reviewed: Yes Vital Signs Reviewed: Yes - History of Present Illness HPI Narrative: 58-year-old male with significant past medical history of previous variceal bleeding presenting to the emergency department chief complaint of vomiting blood. Patient states he has been having dark stool for the past few days. Today he had multiple episodes of bloody vomiting. Patient states over a liter at home. Patient did have active vomiting with blood in EMS. Patient states he feels a little weak but otherwise asymptomatic. Last variceal bleed he had was surgically fixed here with Dr. Valadez. Patient denies being on any anticoagulation Pain Scale: 0 - Related Data Home Medications Medication Instructions Recorded Confirmed Furosemide [Lasix] 20 mg PO DAILY 10/13/17 04/29/18 Omeprazole [PriLOSEC] 40 mg PO DAILY 10/13/17 04/29/18 Spironolactone [Aldactone] 100 mg PO DAILY 10/13/17 04/29/18 Magnesium Oxide [Magnesium] 400 mg PO DAILY 04/29/18 04/29/18 Previous Rx's Medication Instructions Recorded Folic Acid 1 mg PO DAILY #30 tablet 01/29/17 Nadolol [Corgard] 40 mg PO DAILY 30 Days #30 tablet 10/17/17 OxyCODONE/APAP 5/325 [Percocet 1 each PO Q6HR PRN 7 Days #24 04/29/18 5/325 MG] tablet Allergies Allergy/AdvReac Type Severity Reaction Status Date / Time No Known Allergies Allergy Verified 04/29/18 09:35 Limitations: ROS unobtainable due to patients medical condition Past Medical History - Past Medical History Attestation: Yes The following information was validated with the patient. Medical history: Reports: cirrhosis, CVA, GERD, GI bleed, hypertension, liver disease Surgical history: Reports: orthopedic, other Psychiatric history: Reports: no psych history - Social History Smoking Status: Current every day smoker Smokeless Tobacco Status: No Alcohol use: Reports: heavy Drug use: Reports: none Physical Exam - General Limitations: no limitations General appearance: alert - Head Head exam: atraumatic, normocephalic, normal inspection - Eye Eye exam: Present: normal appearance. Absent: scleral icterus, conjunctival injection - ENT ENT exam: mucous membranes dry - Neck Neck exam: Present: normal inspection - Chest Chest inspection: Present: normal inspection, symmetric chest wall rise - Respiratory Respiratory exam: Present: normal lung sounds bilaterally. Absent: respiratory distress, wheezes - Cardiovascular Cardiovascular exam: Present: regular rate, normal rhythm, normal heart sounds - Abdominal Exam Abdominal exam: Present: distention. Absent: guarding, rebound, rigidity - Extremities Exam Extremities exam: Present: normal inspection, full ROM - Neurological Exam Neurological exam: Present: alert, oriented X3 - Skin Skin exam: Present: pallor Course Course Narrative: 58-year-old male presenting for upper GI bleed. Patient has vomited over 1 L of blood today. When patient arrived his blood pressure was 70 systolic. Patient has pallor in the room. His abdomen is distended. Patient arrived and trauma blood was ordered. Saman at bedside. Liter of fluids in a pressure bag was begun and 3 large bore IVs were started. When trauma blood was received he received 4 units of packed red blood cells. Patient received another liter of warm fluids due to his shivering after the blood transfusion. Patient's labs were obtained and showed a hemoglobin of 6.2. INR was within normal limits therefore no further blood products were given. Patient responded well to blood in fluids and increase his systolic blood pressure up to 140. Patient was alert and oriented 3 throughout his stay in the emergency department. Patient did have one episode of hematemesis which included multiple large clots. Patient states he felt significantly better after that. Patient's blood pressure was stable even after his episode of hematemesis. Patient received multiple doses of 8 mg of Zofran to control nausea and vomiting. Patient also received 1 dose of Phenergan. Patient was hemodynamically stable and sent to the OR at approximately 6:15 PM. Patient was given octreotide bolus and drip, Protonix, Rocephin as well. Vital Signs Temperature 97.5 F L 06/05/18 16:26 Pulse Rate 70 06/05/18 16:26 Respiratory Rate 18 06/05/18 16:26 Blood Pressure 71/54 06/05/18 16:26 O2 Sat by Pulse Oximetry 99 06/05/18 16:26 Temperature 98.0 F 06/05/18 17:18 Pulse Rate 76 06/05/18 18:13 Respiratory Rate 16 06/05/18 18:13 Blood Pressure 147/107 06/05/18 18:13 O2 Sat by Pulse Oximetry 100 06/05/18 18:13 Oxygen Delivery Oxygen Delivery Room Air Medical Decision Making - Lab Data Result diagrams: 06/05/18 16:52 06/05/18 16:52 Lab Results 06/05/18 06/05/18 06/05/18 Range/Units 16:52 16:52 16:52 WBC 8.9 (4.3-11.1) K/mcL RBC 2.39 L (4.19-5.50) M/mcL Hgb 6.2 L (12.9-16.9) g/dL Hct 21.3 L (37.5-50.1) % MCV 89.1 (83.0-100.0) fL MCH 25.9 L (28.0-33.3) pg MCHC 29.1 L (31.6-35.5) g/dL RDW 21.5 H (11.5-14.5) % Plt Count 163 (140-400) K/mcL MPV 10.7 (9.4-12.4) fL Immature Gran % 0.3 (0-4) % Seg Neutrophils % 77.9 % Lymphocytes % 11.2 % Monocytes % 8.0 % Eosinophils % 1.9 % Basophils % 0.7 % Neutrophils # 6.9 (1.6-8.9) K/mcL Lymphocytes # 1.0 (0.6-4.6) K/mcL Monocytes # 0.7 (0.0-1.3) K/mcL Eosinophils # 0.2 (0.0-0.6) K/mcL Basophils # 0.1 (0.0-0.2) K/mcL PT 16.0 H (9.4-12.1) Seconds INR 1.4 APTT 27.1 (26.0-36.0) Seconds Sodium 143 (136-145) mEq/L Potassium 4.5 (3.5-5.1) mEq/L Chloride 109 H (98-107) mEq/L Carbon Dioxide 20 L (23-29) mEq/L BUN 21 H (6-20) mg/dL Creatinine 0.89 (0.70-1.30) mg/dL Est GFR ( Amer) > 60 (> 60) Est GFR (Non-Af Amer) > 60 (> 60) BUN/Creatinine Ratio 24 (6-26) Glucose 178 H (70-105) mg/dL Calculated Osmolality 303 H (280-300) Lactic Acid (0.5-2.2) mmol/L Calcium 7.5 L (8.6-10.3) mg/dL Total Bilirubin 2.3 H (0.3-1.0) mg/dL AST 58 H (13-39) Units/L ALT 23 (7-52) Units/L Alkaline Phosphatase 194 H (34-104) Units/L Troponin I < 0.03 (< 0.04) ng/mL Serum Total Protein 5.5 L (6.4-8.9) g/dL Albumin 2.2 L (3.5-5.7) g/dL Globulin 3.3 (2.4-3.5) g/dL Albumin/Globulin Ratio 0.7 L (1.1-2.2) Lipase 45 (11-82) Units/L Blood Type Antibody Screen Crossmatch 06/05/18 06/05/18 Range/Units 16:52 16:52 WBC (4.3-11.1) K/mcL RBC (4.19-5.50) M/mcL Hgb (12.9-16.9) g/dL Hct (37.5-50.1) % MCV (83.0-100.0) fL MCH (28.0-33.3) pg MCHC (31.6-35.5) g/dL RDW (11.5-14.5) % Plt Count (140-400) K/mcL MPV (9.4-12.4) fL Immature Gran % (0-4) % Seg Neutrophils % % Lymphocytes % % Monocytes % % Eosinophils % % Basophils % % Neutrophils # (1.6-8.9) K/mcL Lymphocytes # (0.6-4.6) K/mcL Monocytes # (0.0-1.3) K/mcL Eosinophils # (0.0-0.6) K/mcL Basophils # (0.0-0.2) K/mcL PT (9.4-12.1) Seconds INR APTT (26.0-36.0) Seconds Sodium (136-145) mEq/L Potassium (3.5-5.1) mEq/L Chloride (98-107) mEq/L Carbon Dioxide (23-29) mEq/L BUN (6-20) mg/dL Creatinine (0.70-1.30) mg/dL Est GFR ( Amer) (> 60) Est GFR (Non-Af Amer) (> 60) BUN/Creatinine Ratio (6-26) Glucose (70-105) mg/dL Calculated Osmolality (280-300) Lactic Acid 4.4 H* (0.5-2.2) mmol/L Calcium (8.6-10.3) mg/dL Total Bilirubin (0.3-1.0) mg/dL AST (13-39) Units/L ALT (7-52) Units/L Alkaline Phosphatase (34-104) Units/L Troponin I (< 0.04) ng/mL Serum Total Protein (6.4-8.9) g/dL Albumin (3.5-5.7) g/dL Globulin (2.4-3.5) g/dL Albumin/Globulin Ratio (1.1-2.2) Lipase (11-82) Units/L Blood Type O POSITIVE Antibody Screen NEGATIVE Crossmatch See Detail - EKG Data EKG #1 EKG attestation: Yes I reviewed and interpreted this EKG. EKG results narrative: Sinus rhythm. 69 beats minute. MN interval 144, QRS 84, QTC 466. No sign of acute ST segment elevation or ischemia. Compared to previous EKG completed on 02/08/2018 no significant changes noted
--- NOTE | 2018-06-05 18:21 | Anesthesia Evaluation PreOp ---
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[employer] SPECIALS History: CVA Other Medical History: Hepatic (Cirrhosis), GERD Anesthesia History: No Prior Anesthetic Complications Alcohol Use: heavy Drug use: none Medications and Allergies Folic Acid 1 mg PO DAILY #30 tablet 01/29/17 [Rx] Furosemide [Lasix] 20 mg PO DAILY 10/13/17 [History] Omeprazole [PriLOSEC] 40 mg PO DAILY 10/13/17 [History] Spironolactone [Aldactone] 100 mg PO DAILY 10/13/17 [History] Nadolol [Corgard] 40 mg PO DAILY 30 Days #30 tablet 10/17/17 [Rx] Magnesium Oxide [Magnesium] 400 mg PO DAILY 04/29/18 [History] OxyCODONE/APAP 5/325 [Percocet 5/325 MG] 1 each PO Q6HR PRN 7 Days #24 tablet 04/29/18 [Rx] Allergy/AdvReac Type Severity Reaction Status Date / Time No Known Allergies Allergy Verified 04/29/18 09:35 - Meds/Allergy Pre-op Review Medications Reviewed: Yes Allergies Reviewed: Yes Beta Blockers on Current Med List: No Anesthesia Results - Labs 06/05/18 16:52 06/05/18 16:52 - Imaging EKG: report reviewed (MISTY short AL) Anesthesia Exam O2 Sat Height 1.75 m Weight 90.582 kg O2 Sat by Pulse Oximetry 100 O2 Sat by Pulse Oximetry 100 O2 Sat by Pulse Oximetry 100 O2 Sat by Pulse Oximetry 100 O2 Sat by Pulse Oximetry 100 O2 Sat by Pulse Oximetry 100 O2 Sat by Pulse Oximetry 100 O2 Sat by Pulse Oximetry 100 O2 Sat by Pulse Oximetry 100 O2 Sat by Pulse Oximetry 100 O2 Sat by Pulse Oximetry 96 O2 Sat by Pulse Oximetry 99 Vital Signs Temp Pulse Resp BP Pulse Ox 97.5 F L 70 18 71/54 99 06/05/18 16:26 06/05/18 16:26 06/05/18 16:26 06/05/18 16:26 06/05/18 16:26 Vital Signs/O2 Sat/Glucose, Most Current Temp Pulse Resp BP Pulse Ox 06/05/18 18:13 76 16 147/107 100 10/27/18 17:43 76 16 147/88 100 06/05/18 17:33 81 20 133/98 100 06/05/18 17:24 82 18 154/91 100 06/05/18 17:18 98.0 F 85 20 133/98 100 06/05/18 17:13 98.0 F 91 18 155/93 100 06/05/18 17:08 98.5 F 75 16 125/66 100 06/05/18 17:01 74 14 121/68 100 06/05/18 16:58 98.5 F 75 18 106/75 100 06/05/18 16:52 98.5 F 76 18 106/75 100 06/05/18 16:45 97.4 F L 74 18 108/62 96 06/05/18 16:26 97.5 F L 70 18 71/54 99 Height: 5'9 Weight: 199 lbs NPO (# of Hours): MN Pain Scale: 0 - HEENT Pupil (Motor): Pupils equal, EOMI Mallampati: II Oral Opening: Greater than 3 - [employer] CHECKERER SPECIALS LOC: Oriented [employer] CHECKERER SPECIALS Motor: Normal RUE, Normal LUE, Normal RLE, Normal LLE, Normal Face [employer] CHECKERER SPECIALS Sensory: Normal: RUE, LUE, RLE, LLE, Face - Cardiac Rhythm: Regular Murmur: None JVD: No Carotid Bruit: No - Pulmonary Breath Sounds: bilateral Clear Respiratory Effort: Symmetrical Anesthesia Assess/Plan ASA Score: 4, E Modified Lindsay Scale for Level of Consciousness: Cooperative, oriented, and tranquil Anesthetic Plan: General Monitoring Plan: Standard Monitors Recovery Plan: PACU (Discussed GA, agrees to proceed)
--- NOTE | 2018-06-05 18:27 | Gastroenterology Consult Note ---
Date of Encounter: 06/05/18 Time of Encounter: 18:00 - Assessment and plan (1) Acute blood loss anemia Status: Acute (2) Acute blood loss anemia Status: Acute Assessment and plan: 4 units of packed cells transfused. Emergent EGD (3) Anemia Status: Acute Assessment and plan: Four units of packed cells emergent in ED followed by EGD Qualifiers: Anemia type: iron deficiency Iron deficiency anemia type: chronic blood loss Qualified Code(s): D50.0 - Iron deficiency anemia secondary to blood loss (chronic) (4) Fatigue Status: Acute Assessment and plan: Should correct some with transfusion but, some baseline secondary to cirrhosis Qualifiers: Fatigue type: unspecified Qualified Code(s): R53.83 - Other fatigue (5) GI bleed Status: Acute Assessment and plan: Probable esophageal variceal bleeding. Plan EGD and banding Qualifiers: GI bleed type/associated pathology: melena Qualified Code(s): K92.1 - Melen a (6) Lactic acidosis Status: Acute (7) Liver cirrhosis, alcoholic Status: Acute Assessment and plan: On admission, meld score 12, child Alexandre class B. Decompensated cirrhosis with ascites and variceal bleeding as above. Bleeding has been treated as above. On exam patient still noted to have mild ascites. Recommend restarting home diuretic regimen. Patient received adequate SBP prophylaxis, as he has no history of SBP no indication for further antibiotic prophylaxis. Patient re ports intermittent use of lactulose at home. He states that he normally has 2-3 soft bowel movements daily even without using lactulose that frequently. Given his underlying cirrhosis and history of TIPS procedure he is at high risk for hepatic encephalopathy. I explained this to the patient and recommend that he uses lactulose titrating to 2-3 soft bowel movements daily. I had a long and lyn discussion regarding his alcohol use and strongly encouraged complete cessation. Patient states that he frequently tries but has had issues with relapse. I did suggest that he pursue Alcoholics Anonymous to assist in his recovery. Qualifiers: Ascites presence: with ascites Qualified Code(s): K70.31 - Alcoholic cirrhosis of liver with ascites (8) Bleeding esophageal varices in alcoholic cirrhosis Status: Chronic Assessment and plan: Patient presented with hematemesis secondary to variceal bleeding. Underwent urgent endoscopy and large varices were encountered and banded. Patient has been on octreotide and PPI drip since the procedure, okay to discontinue. Con tinue not all, titrating to heart rate of 50-60 and systolic blood pressure of 100 to decrease risk of variceal rebleed. Patient has had TIPS procedure in the past and Doppler ultrasound reveals stent patency however some decreased velocity. Stable for discharge from a GI standpoint, follow-up as an outpatient in 1-2 weeks. (9) Portal hypertensive gastropathy Status: Chronic (10) Portal venous hypertension Status: Chronic - Time Spent With Patient Total time spent is greater than 50% in coordination of care (as documented) at patient's floor/unit and/or counseling patient: Greater than 35 minutes (patient was hypotensive and had to intensely fluid (iV fluids and 4 units of packed cells) resuscitated in the ED prior to coming to the OR for the endoscopy.) GI History of Present Illness - Data of Consult Patient: known to practice within the last 3 years Consult date: 06/05/18 - Consult Narrative Reason for consult: Melena, Severe anemia, hypotension, cirrhosis and history of esophageal royal History of present illness: Mr. Wu is a 58 year old male Multiple episodes of upper GI bleeding in the past - Likely secondary to portal hypertensive gastropathy with known history of esophageal varices, status post banding - H/H of 6.2 on presentation to ED hypotensive with systolic in the 70s - Patient admits to multiple episodes of hematemesis as well as melena - Started on Protonix, octreotide in emergency room - 4 units of blood ordered, currently transfusing - initially presented hypotensive, however is stable after 1L NS bolus and 4 units PRBCs currently transfused in the ED Plan emergent EGD with probable banding. Past Med Surg Social Fam HX - Past Medical History Medical history: cirrhosis, CVA, GERD, GI bleed, hypertension, liver disease Additional medical history: anxiety/depression,cardiac dysrhythmias,peroneal nerve injury, esophageal varcies Psychiatric history: no psych history - Past Surgical History Surgical History: orthopedic, other Additional surgical history: hernia repair,EGD,ACL repair,colonoscopy, eso phageal varices banded - Social History Smoking Status: Current every day smoker Smokeless Tobacco Status: No Alcohol use: heavy Drug use: none - Family History Brother Hx Family Cardiac Disorders: (obesity) Father Living Status: Hx Family Cardiac Disorders: Yes Mother Living Status: Hx Family Cardiac Disorders: Yes - Gastrointestinal Gastrointestinal: Present: hematemesis, melena, vomiting - Constitutional Constitutional: fatigue - Cardiovascular Additional Comment: Lightheadedness - Psychiatric ROS Psychiatric GI: Present: anxiety Additional Comment: patient unfortunately still continues to drink alcoholl - Constitutional Vitals: Temp Pulse Resp BP Pulse Ox 98.0 F 76 16 147/107 100 06/05/18 17:18 06/05/18 18:13 06/05/18 18:13 06/05/18 18:13 06/05/18 18:13 Results - Labs CBC & Chem 7: 06/08/18 04:08 06/08/18 04:08 Labs: Last Result Calcium 7.5 mg/dL (8.6-10.3) L 06/05/18 16:52 Troponin I < 0.03 ng/mL (< 0.04) 06/05/18 16:52 Entire Visit Hgb 6.2 g/dL (12.9-16.9) L 06/05/18 16:52 Hct 21.3 % (37.5-50.1) L 06/05/18 16:52 PT 16.0 Seconds (9.4-12.1) H 06/05/18 16:52 Total Bilirubin 2.3 mg/dL (0.3-1.0) H 06/05/18 16:52 AST 58 Units/L (13-39) H 06/05/18 16:52 ALT 23 Units/L (7-52) 06/05/18 16:52 Lipase 45 Units/L (11-82) 06/05/18 16:52 - ABG ABG results: PT/INR, D-dimer PT 16.0 Seconds (9.4-12.1) H 06/05/18 16:52 - Impressions Impressions Chest X-Ray 06/05/18 16:33 IMPRESSION: No significant finding or interval change. D/ / Leonel Guerra MD / Leonel Guerra MD Interpreting Provider: Leonel Guerra MD Consult Discharge Plan - Plan Additional Instructions: - We will up with GI in 1-2 weeks from now. -Consider pursuing alcoholic anonymous helping with alcohol cessation. -Go to the ED immediately if noticing more episodes of bloody vomiting or blood in the stools Referrals: Chaz Valadez MD [Partnered Physician] - (sent web request on @ 1223) Miguel Khan DO [Primary Care Provider] - 06/21/18 9:30 am (Dr. Toney is out of the office the week of 06-13 [facility] 06-20-18)
[2018-06-05] MEDS ORDERED: *HR* FentaNYL (PF) 100 MCG/2 ML VIAL ONE ×2 (18:31→18:55)
[2018-06-05] MEDS ORDERED: Lidocaine -MPF 4% 5 ML AMPUL ONE (18:31)
[2018-06-05] MEDS ORDERED: Dexamethasone 4 MG/ML VIAL ONE (18:45)
[2018-06-05] MEDS ORDERED: *HR* EPINEPHrine 1 MG/10 ML SYRINGE INTRATRACH PRN (18:53)
[2018-06-05] MEDS ORDERED: Ondansetron 4 MG/2 ML VIAL IVP PRN (20:34)
[2018-06-05] MEDS ORDERED: Naloxone 0.4 MG/ML INJ IVP PRN (20:35)
--- NOTE | 2018-06-05 20:44 | Internal Med History&Physical ---
<Kaylene Jacome - Last Filed: 06/05/18 22:30> Date of Encounter: 06/05/18 Internal Medicine - H&P: Meds Folic Acid 1 mg PO DAILY #30 tablet 01/29/17 [Rx] Furosemide [Lasix] 20 mg PO DAILY 10/13/17 [History] Omeprazole [PriLOSEC] 40 mg PO DAILY 10/13/17 [History] Spironolactone [Aldactone] 100 mg PO DAILY 10/13/17 [History] Nadolol [Corgard] 40 mg PO DAILY 30 Days #30 tablet 10/17/17 [Rx] Magnesium Oxide [Magnesium] 400 mg PO DAILY 04/29/18 [History] OxyCODONE/APAP 5/325 [Percocet 5/325 MG] 1 each PO Q6HR PRN 7 Days #24 tablet 04/29/18 [Rx] Allergy/AdvReac Type Severity Reaction Status Date / Time No Known Allergies Allergy Verified 04/29/18 09:35 All Systems PM: A 10-system review of systems was performed and is negative for pertinent findings except as documented above in the HPI. - Constitutional Vitals: Temp Pulse Resp BP Pulse Ox 98.8 F 70 10 152/84 99 06/05/18 19:30 06/05/18 21:34 06/05/18 21:34 06/05/18 21:34 06/05/18 21:34 Internal Med - H&P Results - Labs CBC & Chem 7: 06/05/18 20:51 06/05/18 20:51 Labs: Short CBC 06/05/18 06/05/18 Range/Units 16:52 20:51 WBC 8.9 8.4 (4.3-11.1) K/mcL Hgb 6.2 L 10.0 L D (12.9-16.9) g/dL Hct 21.3 L 31.6 L (37.5-50.1) % Plt Count 163 104 L (140-400) K/mcL Neutrophils # 6.9 (1.6-8.9) K/mcL BMP 06/05/18 06/05/18 16:52 20:51 Sodium 143 137 Potassium 4.5 6.2 H D Chloride 109 H 110 H Carbon Dioxide 20 L 17 L BUN 21 H 23 H Creatinine 0.89 0.89 Glucose 178 H 136 H Calcium 7.5 L 7.8 L Cardiac Enzymes 06/05/18 Range/Units 16:52 Troponin I < 0.03 (< 0.04) ng/mL Liver Function 06/05/18 Range/Units 16:52 Total Bilirubin 2.3 H (0.3-1.0) mg/dL AST 58 H (13-39) Units/L ALT 23 (7-52) Units/L Alkaline Phosphatase 194 H (34-104) Units/L Albumin 2.2 L (3.5-5.7) g/dL - Impressions ITS Impressions Chest X-Ray 06/05/18 16:33 IMPRESSION: No significant finding or interval change. D/ / Leonel Guerra MD / Leonel Guerra MD Interpreting Provider: Leonel Guerra MD - Time Spent With Patient Total time spent is greater than 50% in coordination of care (as documented) at patient's floor/unit and/or counseling patient: - Attending Attestation 58 -year-old gentleman with a history of alcoholic liver cirrhosis with portal hypertension and multiple episodes of GI bleed due to esophageal varices and continues to drink alcohol daily up until yesterday who presents to the ER with acute onset hematemesis today reporting that he vomited up to a liter and a half of blood at home. He also described associated nausea and epigastric region. He continued to have active vomitus in the ambulance on route. On arrival he was hemodynamically unstable, hypotensive, cold and pale to touch requiring aggressive fluid resuscitation and blood transfusions. He was taken to the or for endoscopy where a large variceal bleed was noted requiring banding and ultimately a clot in the gastric fundus equally noted. He is now in the ICU for stabilization. Physical exam remarkable for well-developed male who is in no acute distress and conversations, pale mucous membranes, CTABL, nl s1/s2, soft and non-tender abdomen but mildly distended with fluid shifting, no c/c/e, AAO x 3, affect appropriate. Labs reviewed. Will admit to ICU for further monitoring. Continue octreotide drip and should also be on PPI. IPC for DVT prophylaxis. Anti-emetics standing to avoid disruption of the clots with vomiting. IVF to continue. Trend H/H. Correct electrolyte imbalances that could be brought on from the multiple blood transfusions. Place on CIWA protocol and benzos prn as his last drink was last night. NPO. JOHNNY FERRELL. <Leo Multani - Last Filed: 06/05/18 22:48> Time of Encounter: 20:42 Internal Medicine - H&P: HPI Chief complaint: hematemesis History of present illness: Jaspal Wu is a 58 year old male with a PMH of cirrhosis, CVA, GERD, GI bleed, hypertension, liver disease who presented to [facility] ED on 06/05/2018 with a chief complaint of hematemesis. Patient reported having dark stool for several days. Today, he had multiple episodes of hematemesis, 1.5L of volume at home. Associated with nausea and epigastric pain. Patient had active vomiting with blood in EMS. Patient also reported weakness. Otherwise asymptomatic. Patient has a known history of variceal bleeds; previous bleed was fixed by Dr. Valadez. He is not currently on any anticoagulation. Upon arrival to the emergency department, vital signs were as follows: Temperature 97.5, pulse 70, respiratory rate 18, blood pressure 71/54, pulse ox 99. Abdomen was notably distended. Trauma blood was ordered, liter of fluid in pressure bag was started, 3 large bore IVs were started. He received a total of 4 units of packed red blood cells. Also received 1 L of warm fluids due to shivering after blood transfusion. Hemoglobin was 6.2, INR normal limits. Patient responded well to fluid resuscitation; subsequent blood pressure was in the 140s. Alert and oriented 3 throughout his stay in the emergency department. Patient had one episode of hematemesis with multiple large clots. He received multiple doses 8 mg IV Zofran for nausea control. Also received one dose of Phenergan. Patient was sent to the OR at 1815. He was given an octreotide bolus and drip, as well as Protonix and a one-time dose of Rocephin. Patient was seen and examined at bedside in the ICU; patient just came from the operating room. 1 varices was banded, and epinephrine was injected into the area of a Chantelle-Naik tear. Patient states that he feels somewhat fatigued, but no longer has generalized weakness. He admits to some nausea and epigastric abdominal discomfort, but denies vomiting, diarrhea, fevers, chills, chest pain, shortness of breath, hematochezia, numbness, tingling, or headache. He has no further complaints at this time. Past Med Surg Social Fam HX - Past Medical History Medical history: cirrhosis, CVA, GERD, GI bleed, hypertension, liver disease Additional medical history: anxiety/depression,cardiac dysrhythmias,peroneal nerve injury, esophageal varcies Psychiatric history: no psych history - Past Surgical History Surgical History: orthopedic, other Additional surgical history: hernia repair,EGD,ACL repair,colonoscopy, esophageal varices banded - Social History Smoking Status: Current every day smoker Smokeless Tobacco Status: No Alcohol use: heavy Drug use: none - Family History Father Living Status: Hx Family Cardiac Disorders: Yes Mother Living Status: Hx Family Cardiac Disorders: Yes Brother Hx Family Cardiac Disorders: (obesity) All Systems PM: A 10-system review of systems was performed and is negative for pertinent findings except as documented above in the HPI. - Constitutional Constitutional: as per HPI, no chills, no fever(s), no night sweats - EENT Eyes: as per HPI Ears: as per HPI Nose, mouth and throat: as per HPI, no dysphagia, no nasal discharge, no neck pain, no sore throat - Breasts Breasts: as per HPI - Cardiovascular Cardiovascular ROS IM: as per HPI, no chest pain, no diaphoresis, no dyspnea, no lightheadedness, no palpitations, no syncope - Respiratory Respiratory: as per HPI, no cough, no dyspnea, no wheezing, no excessive phlegm production - Gastrointestinal Gastrointestinal: as per HPI, hematemesis, melena, nausea, vomiting, no abdomina l pain, no diarrhea, no hematochezia - Genitourinary Genitourinary ROS male: as per HPI - Musculoskeletal Musculoskeletal ROS IM: as per HPI, no back pain, no numbness, no tingling - Integumentary Integumentary IM: as per HPI, no rash, no unusual bruising - Neurological Neurological ROS: as per HPI, no confusion, no convulsions, no focal weakness, no numbness, no tingling, no tremor(s) - Psychiatric Psychiatric: as per HPI, no anxiety, no confusion - Hematologic/Lymphatic Hematologic/Lymphatic: no easy bruising - Constitutional Vitals: Temp Pulse Resp BP Pulse Ox 98.0 F 80 18 146/88 100 06/05/18 17:18 06/05/18 18:32 06/05/18 18:32 06/05/18 18:32 06/05/18 18:32 Exam: General: A&O X3, conversant, appears tired Head: atraumatic, normocephalic Eye: PERRL, EOMI, conjuntiva pink, sclera anicteric Neck: Supple, trachea midline; No lymphadenopathy Respiratory: CTAB. No accessory muscle use, wheezes, rales, or rhonchi Cardiovascular: RRR, +S1, +S2; no murmurs, rubs, gallops Abdomen: Distended, nontender Extremities: warm, radial pulses palpable and symmetrical Neurological: CN II-XII intact Psychiatric: Normal affect, normal mood Skin: Dry, intact Internal Med - H&P Results - Labs CBC & Chem 7: 06/05/18 20:51 06/05/18 20:51 Labs: Short CBC 06/05/18 Range/Units 16:52 WBC 8.9 (4.3-11.1) K/mcL Hgb 6.2 L (12.9-16.9) g/dL Hct 21.3 L (37.5-50.1) % Plt Count 163 (140-400) K/mcL Neutrophils # 6.9 (1.6-8.9) K/mcL BMP 06/05/18 16:52 Sodium 143 Potassium 4.5 Chloride 109 H Carbon Dioxide 20 L BUN 21 H Creatinine 0.89 Glucose 178 H Calcium 7.5 L Cardiac Enzymes 06/05/18 Range/Units 16:52 Troponin I < 0.03 (< 0.04) ng/mL Liver Function 06/05/18 Range/Units 16:52 Total Bilirubin 2.3 H (0.3-1.0) mg/dL AST 58 H (13-39) Units/L ALT 23 (7-52) Units/L Alkaline Phosphatase 194 H (34-104) Units/L Albumin 2.2 L (3.5-5.7) g/dL - Impressions ITS Impressions Chest X-Ray 06/05/18 16:33 IMPRESSION: No significant finding or interval change. D/ / Leonel Guerra MD / Leonel Guerra MD Interpreting Provider: Leonel Guerra MD - Assessment and plan (1) Upper GI bleeding Current Visit: Yes Status: Acute Assessment and plan: Secondary to Chantelle-Naik tear and esophageal varices - Presented with multiple episodes of hematemesis, as well as melena for the last week - Patient vomited approximately 1.5 L of bloody vomit at home - Presented to the ER hypotensive with systolic blood pressure in the 70s with a hemoglobin of 6.2 - Was transfused with 4 units of packed red blood cells and was given IV fluids - Was taken to the OR at 1815 - 1 esophageal varices was banded, and epinephrine was administered for Chantelle- Naik tear - Large clot was also found in the stomach Plan: - IV octreotide - IV Protonix - Zofran when necessary - Rocephin 1 g IV daily for SBP prophylaxis (2) Acute blood loss anemia Current Visit: No Status: Acute Assessment and plan: Secondary to hematemesis - Hb on arrival was 6.2 - Received 4U pRBCs - Repeat CBC pending - Will continue to closely monitor clinical status (3) Liver cirrhosis, alcoholic Current Visit: No Status: Acute Assessment and plan: Patient has a known history of cirrhosis secondary to alcohol use - Patient takes Corgard and Aldactone at home - MELD score: 13 Plan: - Rocephin 1 g IV daily for SBP prophylaxis - Resume home meds Qualifiers: Ascites presence: unspecified Qualified Code(s): K70.30 - Alcoholic cirrhosis of liver without ascites (4) Portal hypertensive gastropathy Current Visit: No Status: Chronic Assessment and plan: Likely secondary to cirrosis Continue protonix and octreotide (5) Alcohol abuse Current Visit: Yes Status: Acute Assessment and plan: Patient has a known history of alcohol abuse - He states that his last drink was last night - CIWA protocol (6) Hyperkalemia Current Visit: Yes Status: Acute Assessment and plan: Labs demonstrated an elevated potassium level - IV insulin 10 units with D50 was administered - Repeat chemistry at midnight - Repeat a.m. labs - Time Spent With Patient Total time spent is greater than 50% in coordination of care (as documented) at patient's floor/unit and/or counseling patient: 25 - 35 minutes
[2018-06-05 21:00] LABS: Hematocrit 31.6 % (37.5-50.1); Mean Corpuscular HGB Conc 31.6 g/dL (31.6-35.5); Mean Corpuscular Hemoglobin 27.9 pg (28.0-33.3); Mean Platelet Volume 10.5 fL (9.4-12.4); Platelet Count 104 K/mcL (140-400); Red Blood Count 3.59 M/mcL (4.19-5.50); Red Cell Distribution Width 17.9 % (11.5-14.5)
[2018-06-05] MEDS ORDERED: *HR* LORazepam 2 MG/ML VIAL IVP PRN (21:04)
[2018-06-05] MEDS ORDERED: diazePAM 10 MG/2 ML SYRINGE IVP PRN (21:04)
[2018-06-05 21:27] LABS: BUN/Creatinine Ratio 26 (6-26); Blood Urea Nitrogen 23 mg/dL (6-20); Calcium 7.8 mg/dL (8.6-10.3); Carbon Dioxide 17 mEq/L (23-29); Chloride 110 mEq/L (98-107); Glucose 136 mg/dL (70-105); Osmolality,Calculated 290 (280-300); Potassium 6.2 mEq/L (3.5-5.1); Sodium 137 mEq/L (136-145); eGFR For Non-African Americans > 60 (> 60)
[2018-06-05] MEDS ORDERED: *HR* Dextrose 50 % in Water (Syg) 50 ML SYRINGE IVP ONE (22:14)
[2018-06-05] MEDS ORDERED: Insulin Human Regular 10 UNIT in 0.9 % Sodium Chloride 10 ML IV ONE (22:14)
[2018-06-05] MEDS: Pantoprazole 40 MG in 0.9 % Sodium Chloride Mini Bag 100 ML IVC SCH (22:56)
[2018-06-05] MEDS: 0.9 % Sodium Chloride 1,000 ML IVC SCH (22:58)
--- NOTE | 2018-06-05 23:54 | Anesthesia Evaluation Post Op ---
Date of Encounter: 06/05/18 Time of Encounter: 23:50 - Vital Signs Vital Signs: Vital Signs/O2 Sat/Glucose, Most Current Pulse Resp BP Pulse Ox 06/05/18 23:00 84 8 147/67 90 06/05/18 22:39 16 92 06/05/18 22:00 72 14 157/85 92 06/05/18 21:34 70 10 152/84 99 06/05/18 21:05 70 10 139/83 99 06/05/18 20:30 68 12 143/84 97 06/05/18 20:15 70 12 134/73 96 06/05/18 20:00 72 12 131/73 97 - Lungs Lungs: Clear Ascult./Percussion - Airway Airway: Non-obstructed - Cardiovascular Regular Rate - Mental Status Mental Status: Alert & Oriented, Answers Appropriately - Pain Pain Scale: 0 - Nausea Vomiting Nausea Vomiting: Not Present - Hydration Hydration: NPO - Discharge PostOp Status: Transfer Patient to floor (To ICU)
[2018-06-06] MEDS: Ondansetron 4 MG/2 ML VIAL IVP SCH ×4 (00:18→17:47)
[2018-06-06 01:25] LABS: Hemoglobin 8.9 g/dL (12.9-16.9); Red Cell Distribution Width 17.7 % (11.5-14.5); Segmented Neutrophils % 85.3 %
[2018-06-06 01:27] LABS: Basophils % 0.3 %; Hematocrit 27.4 % (37.5-50.1); Immature Granulocytes % 0.3 % (0-4); Immature Platelets 7.1 % (1.1-6.1); Lymphocytes # 0.7 K/mcL (0.6-4.6); Lymphocytes % 8.4 %; Mean Corpuscular HGB Conc 32.5 g/dL (31.6-35.5); Mean Corpuscular Volume 86.2 fL (83.0-100.0); Mean Platelet Volume 10.9 fL (9.4-12.4); Monocytes % 5.7 %; Neutrophils # 6.7 K/mcL (1.6-8.9); Nucleated Red Blood Cells 0.3 /100 WBC (0); Red Blood Count 3.18 M/mcL (4.19-5.50)
[2018-06-06 01:28] LABS: Monocytes # 0.4 K/mcL (0.0-1.3); Platelet Count 90 K/mcL (140-400)
[2018-06-06 01:53] LABS: BUN/Creatinine Ratio 25 (6-26); Blood Urea Nitrogen 24 mg/dL (6-20); Calcium 7.5 mg/dL (8.6-10.3); Carbon Dioxide 20 mEq/L (23-29); Chloride 111 mEq/L (98-107); Glucose 181 mg/dL (70-105); Osmolality,Calculated 295 (280-300); Potassium 4.4 mEq/L (3.5-5.1); Sodium 138 mEq/L (136-145); eGFR For Non-African Americans > 60 (> 60)
[2018-06-06] MEDS: Octreotide 400 MCG in 0.9 % Sodium Chloride 100 ML IVC SCH ×4 (02:38→23:07)
[2018-06-06] MEDS: Pantoprazole 40 MG in 0.9 % Sodium Chloride Mini Bag 100 ML IVC SCH ×5 (03:41→23:02)
--- NOTE | 2018-06-06 07:31 | Internal Med Progress Note ---
<Brando Castaneda - Last Filed: 06/06/18 12:53> Hospitalist Progress Note - Exam Vitals: Temp Pulse Resp BP Pulse Ox 98.1 F 72 17 112/63 92 06/06/18 08:04 06/06/18 12:00 06/06/18 12:00 06/06/18 12:00 06/06/18 12:00 - Assessment and Plan (1) Bleeding esophageal varices in alcoholic cirrhosis Current Visit: Yes Status: Acute (2) Acute blood loss anemia Current Visit: No Status: Acute (3) Liver cirrhosis, alcoholic Current Visit: No Status: Acute (4) Alcohol dependence Current Visit: Yes Status: Chronic (5) Hyperkalemia Current Visit: Yes Status: Resolved (6) Tobacco abuse Current Visit: No Status: Chronic Assessment and Plan: Cessation counselling. - Time Spent with Patient Total time spent is greater than 50% in coordination of care (as documented) at patient's floor/unit and/or counseling patient: Internal Medicine: Result - Labs CBC & Chem 7: 06/06/18 01:16 06/06/18 01:16 Labs: Short CBC 06/05/18 06/05/18 06/06/18 Range/Units 16:52 20:51 01:16 WBC 8.9 8.4 7.8 (4.3-11.1) K/mcL Hgb 6.2 L 10.0 L D 8.9 L (12.9-16.9) g/dL Hct 21.3 L 31.6 L 27.4 L (37.5-50.1) % Plt Count 163 104 L 90 L (140-400) K/mcL Neutrophils # 6.9 6.7 (1.6-8.9) K/mcL BMP 06/05/18 06/05/18 06/06/18 16:52 20:51 01:16 Sodium 143 137 138 Potassium 4.5 6.2 H D 4.4 D Chloride 109 H 110 H 111 H Carbon Dioxide 20 L 17 L 20 L BUN 21 H 23 H 24 H Creatinine 0.89 0.89 0.95 Glucose 178 H 136 H 181 H Calcium 7.5 L 7.8 L 7.5 L Cardiac Enzymes 06/05/18 Range/Units 16:52 Troponin I < 0.03 (< 0.04) ng/mL Liver Function 06/05/18 Range/Units 16:52 Total Bilirubin 2.3 H (0.3-1.0) mg/dL AST 58 H (13-39) Units/L ALT 23 (7-52) Units/L Alkaline Phosphatase 194 H (34-104) Units/L Albumin 2.2 L (3.5-5.7) g/dL - ABG Interpretation ABG results: PT/INR, D-dimer PT 16.0 Seconds (9.4-12.1) H 06/05/18 16:52 - Impressions Impressions Chest X-Ray 06/05/18 16:33 IMPRESSION: No significant finding or interval change. D/ / Leonel Guerra MD / Leonel Guerra MD Interpreting Provider: Leonel Guerra MD Consult Discharge Plan - Plan Referrals: NONE,PCP [Primary Care Provider] - - Attending Attestation I examined this patient and my medical decision-making was reviewed with the Resident Physician on 06/06/18. I agree with the documented findings, disposition and treatment plan as described except to the extent set forth below. Mr Mcdowell is currently admitted for acute UGI bleed due to esophageal varices and Chantelle Naik tear. He remains moderate to high risk due to potential for worsening clinical status. Mr Mcdowell is doing OK at this time. No fever or chills. No abd pain. H/H OK at this point. No further bleeding noted overnight. Still with some melena. Has been hemodynamically stable. Appears patient has had TIPPS last year. May need work up to see if functioning. Exam Alert Comfortable Mucus membranes moist Heart reg and not tachycardic at this time No wheeze Abd nontender No edema I/P 1. UGI bleed due to varices 2. Anemia Further diagnoses and plan as above. <Joe Guillaume - Last Filed: 06/06/18 14:55> Hospitalist Progress Note - Encounter Date of Encounter: 06/06/18 Time of Encounter: 08:15 - Subjective Interval History: Patient seen and examined resting comfortably in bed. Patient denies any hematemesis and is requesting ice chips at this time. Most recent hemoglobin 8.9 after 4 units PRBCs. Patient reports last alcohol intake 2 days ago and denies previous alcohol withdrawal seizures. He is currently on Ativan per [facility] protocol. Stable for transfer to 2 nursing unit. - Exam Vitals: Temp Pulse Resp BP Pulse Ox 98.1 F 72 10 121/86 92 06/06/18 04:30 06/06/18 07:00 06/06/18 07:00 06/06/18 07:00 06/06/18 07:00 Exam: General appearance: Present: cooperative, A&O X 3, no acute distress, awake, pleasant Head exam: Present: atraumatic, normocephalic Eye exam: Present: EOMI, conjuntiva pink, sclera anicteric ENT exam: Present: mucous membranes dry Neck exam: Present: supple, trachea midline. Absent: lymphadenopathy Respiratory exam: CTAB. Absent: accessory muscle use, rhonchi, wheezes Cardiovascular exam: Present: RRR, +S1, +S2. Absent: diastolic murmur, gallop, rubs, systolic murmur GI/Abdominal exam: Present: Hepatomegaly, normal bowel sounds, soft, no peritoneal signs. Absent: distended, tenderness Extremities exam: Present: warm, radial pulses palpable and symmetrical. Absent: calf tenderness, cyanotic, pedal edema Neurological exam: Present: CN II-XII intact, oriented X3, no focal deficits. Absent: facial droop, speech deficit Psychiatric exam: Present: normal affect, normal mood Skin exam: Present: dry, warm, no rash - Assessment and Plan (1) Bleeding esophageal varices in alcoholic cirrhosis Current Visit: Yes Status: Acute Assessment and Plan: Secondary bleeding esophageal varices and Chantelle Naik tear Presented with multiple episodes of hematemesis, as well as melena for the last week Patient vomited approximately 1.5 L of bloody vomit at home Presented to the ER hypotensive with systolic blood pressure in the 70s with a hemoglobin of 6.2 Was transfused with 4 units of packed red blood cells and was given IV fluids EGD performed 06/05/18 by GI, 1 esophageal varices was banded, and epinephrine was administered for Chantelle-Naik tear Large clot was also found in the stomach Continue IV octreotide and IV Protonix, Zofran when necessary Rocephin 1 g IV daily for SBP prophylaxis Advanced to nothing by mouth except for ice chips diet per GI recommendations Nothing by mouth except meds after midnight pending right upper quadrant TIPS ultrasound, will advance diet once cleared by GI (2) Acute blood loss anemia Current Visit: No Status: Acute Assessment and Plan: Secondary to hematemesis Hb on arrival was 6.2 Received 4U pRBCs, esophageal varices bleeding was banded by GI on 06/05/18 Repeat hemoglobin stable, continue monitoring Will continue to closely monitor clinical status (3) Alcohol dependence Current Visit: Yes Status: Chronic Assessment and Plan: Patient has a known history of alcohol abuse He states that his last drink was 06/04/18 Continue Ativan per [facility] protocol Aspiration precautions (4) Liver cirrhosis, alcoholic Current Visit: No Status: Acute Assessment and Plan: Patient has a known history of cirrhosis secondary to alcohol use Patient takes Corgard and Aldactone at home MELD score: 13 Rocephin 1 g IV daily for SBP prophylaxis (day 1) Resume home meds when able Nothing by mouth except meds after midnight, Ultrasound ordered to evaluate TIPS patency status post TIPS procedure on 04/01/17 (5) Hyperkalemia Current Visit: Yes Status: Resolved Assessment and Plan: Resolved Continue monitoring - Time Spent with Patient Total time spent is greater than 50% in coordination of care (as documented) at patient's floor/unit and/or counseling patient: Internal Medicine: Result - Labs CBC & Chem 7: 06/06/18 01:16 06/06/18 01:16 Labs: Short CBC 06/05/18 06/05/18 06/06/18 Range/Units 16:52 20:51 01:16 WBC 8.9 8.4 7.8 (4.3-11.1) K/mcL Hgb 6.2 L 10.0 L D 8.9 L (12.9-16.9) g/dL Hct 21.3 L 31.6 L 27.4 L (37.5-50.1) % Plt Count 163 104 L 90 L (140-400) K/mcL Neutrophils # 6.9 6.7 (1.6-8.9) K/mcL BMP 06/05/18 06/05/18 06/06/18 16:52 20:51 01:16 Sodium 143 137 138 Potassium 4.5 6.2 H D 4.4 D Chloride 109 H 110 H 111 H Carbon Dioxide 20 L 17 L 20 L BUN 21 H 23 H 24 H Creatinine 0.89 0.89 0.95 Glucose 178 H 136 H 181 H Calcium 7.5 L 7.8 L 7.5 L Cardiac Enzymes 06/05/18 Range/Units 16:52 Troponin I < 0.03 (< 0.04) ng/mL Liver Function 06/05/18 Range/Units 16:52 Total Bilirubin 2.3 H (0.3-1.0) mg/dL AST 58 H (13-39) Units/L ALT 23 (7-52) Units/L Alkaline Phosphatase 194 H (34-104) Units/L Albumin 2.2 L (3.5-5.7) g/dL - ABG Interpretation ABG results: PT/INR, D-dimer PT 16.0 Seconds (9.4-12.1) H 06/05/18 16:52 - Impressions Impressions Chest X-Ray 06/05/18 16:33 IMPRESSION: No significant finding or interval change. D/ / Leonel Guerra MD / Leonel Guerra MD Interpreting Provider: Leonel Guerra MD <Brando Castaneda - Last Filed: 06/06/18 12:53> (3) Liver cirrhosis, alcoholic Qualifiers: Ascites presence: unspecified Qualified Code(s): K70.30 - Alcoholic cirrhosis of liver without ascites (4) Alcohol dependence Qualifiers: Substance use status: other alcohol-induced disorder Qualified Code(s): F10.288 - Alcohol dependence with other alcohol-induced disorder <Joe Guillaume - Last Filed: 06/06/18 14:55> (3) Alcohol dependence Qualifiers: Substance use status: other alcohol-induced disorder Qualified Code(s): F10.288 - Alcohol dependence with other alcohol-induced disorder (4) Liver cirrhosis, alcoholic Qualifiers: Ascites presence: unspecified Qualified Code(s): K70.30 - Alcoholic cirrhosis of liver without ascites
[2018-06-06] MEDS ORDERED: cefTRIAXone 1,000 MG in Water for inj. (sterile) 20 ML 10 ML IVP SCH (09:00)
[2018-06-06] MEDS: 0.9 % Sodium Chloride 1,000 ML IVC SCH (09:30)
[2018-06-06] MEDS ORDERED: *HR* LORazepam 2 MG/ML VIAL IVP PRN ×5 (14:22→20:48)
--- NOTE | 2018-06-06 14:34 | Gastroenterology Progress Note ---
Date of Encounter: 06/06/18 Time of Encounter: 08:30 - Time Spent With Patient Total time spent is greater than 50% in coordination of care (as documented) at patient's floor/unit and/or counseling patient: - Subjective Interval history: Patient seen and examined resting comfortably in bed. Patient denies any hematemesis and is requesting ice chips at this time. Most recent hemoglobin 8.9 after 4 units PRBCs. Patient reports last alcohol intake 2 days ago and den ies previous alcohol withdrawal seizures. He is currently on Ativan per [facility] protocol. - Constitutional Vitals: Temp Pulse Resp BP Pulse Ox 98.1 F 72 12 102/48 93 06/06/18 08:04 06/06/18 14:00 06/06/18 14:00 06/06/18 14:00 06/06/18 14:00 Results - Labs CBC & Chem 7: 06/06/18 01:16 06/06/18 01:16 Labs: Last Result Calcium 7.5 mg/dL (8.6-10.3) L 06/06/18 01:16 Troponin I < 0.03 ng/mL (< 0.04) 06/05/18 16:52 Entire Visit Hgb 8.9 g/dL (12.9-16.9) L 06/06/18 01:16 Hct 27.4 % (37.5-50.1) L 06/06/18 01:16 PT 16.0 Seconds (9.4-12.1) H 06/05/18 16:52 Total Bilirubin 2.3 mg/dL (0.3-1.0) H 06/05/18 16:52 AST 58 Units/L (13-39) H 06/05/18 16:52 ALT 23 Units/L (7-52) 06/05/18 16:52 Lipase 45 Units/L (11-82) 06/05/18 16:52 - ABG ABG results: PT/INR, D-dimer PT 16.0 Seconds (9.4-12.1) H 06/05/18 16:52 - Impressions Impressions Chest X-Ray 06/05/18 16:33 IMPRESSION: No significant finding or interval change. D/ / Leonel Guerra MD / Leonel Guerra MD Interpreting Provider: Leonel Guerra MD Consult Discharge Plan - Plan Referrals: NONE,PCP [Primary Care Provider] -
[2018-06-06] MEDS ORDERED: Naloxone 0.4 MG/ML INJ IVP PRN (20:48)
[2018-06-06] MEDS ORDERED: diazePAM 10 MG/2 ML SYRINGE IVP PRN (20:48)
[2018-06-06] MEDS ORDERED: *HR* EPINEPHrine 1 MG/10 ML SYRINGE INTRATRACH PRN (20:48)
[2018-06-06 21:08] LABS: Hematocrit 22.7 % (37.5-50.1); Hemoglobin 7.3 g/dL (12.9-16.9)
[2018-06-06] MEDS ORDERED: 0.9 % Sodium Chloride 250 ML ONE (22:27)
[2018-06-07] MEDS: Ondansetron 4 MG/2 ML VIAL IVP SCH ×4 (00:24→18:06)
[2018-06-07] MEDS: Pantoprazole 40 MG in 0.9 % Sodium Chloride Mini Bag 100 ML IVC SCH ×4 (00:34→20:30)
[2018-06-07] MEDS ORDERED: 0.9 % Sodium Chloride 250 ML ONE (01:20)
[2018-06-07] MEDS: Octreotide 400 MCG in 0.9 % Sodium Chloride 100 ML IVC SCH ×2 (05:42→14:30)
[2018-06-07 05:44] LABS: Mean Corpuscular HGB Conc 32.4 g/dL (31.6-35.5); Mean Platelet Volume 11.8 fL (9.4-12.4)
[2018-06-07 05:45] LABS: Hematocrit 28.1 % (37.5-50.1); Hemoglobin 9.1 g/dL (12.9-16.9); Immature Platelets 11.9 % (1.1-6.1); Mean Corpuscular Volume 86.5 fL (83.0-100.0); Red Blood Count 3.25 M/mcL (4.19-5.50); Red Cell Distribution Width 17.9 % (11.5-14.5)
[2018-06-07 06:04] LABS: Alanine Aminotransferase 19 Units/L (7-52); Albumin 2.6 g/dL (3.5-5.7); Albumin/Globulin Ratio 0.8 (1.1-2.2); Alkaline Phosphatase 154 Units/L (34-104); Aspartate Amino Transferase 42 Units/L (13-39); BUN/Creatinine Ratio 27 (6-26); Bilirubin,Total 3.1 mg/dL (0.3-1.0); Blood Urea Nitrogen 26 mg/dL (6-20); Calcium 7.6 mg/dL (8.6-10.3); Carbon Dioxide 21 mEq/L (23-29); Chloride 112 mEq/L (98-107); Globulin 3.1 g/dL (2.4-3.5); Glucose 127 mg/dL (70-105); Osmolality,Calculated 292 (280-300); Potassium 3.9 mEq/L (3.5-5.1); Sodium 138 mEq/L (136-145); Total Protein 5.7 g/dL (6.4-8.9); eGFR For Non-African Americans > 60 (> 60)
[2018-06-07] MEDS: cefTRIAXone 1,000 MG in Water for inj. (sterile) 20 ML 10 ML IVP SCH (07:50)
--- NOTE | 2018-06-07 09:35 | Internal Med Progress Note ---
<Brando Castaneda - Last Filed: 06/07/18 16:44> Hospitalist Progress Note - Exam Vitals: Temp Pulse Resp BP Pulse Ox 97.8 F 63 17 161/92 96 06/07/18 11:08 06/07/18 11:08 06/07/18 11:08 06/07/18 11:08 06/07/18 11:08 - Assessment and Plan (1) Bleeding esophageal varices in alcoholic cirrhosis Current Visit: Yes Status: Chronic (2) Acute blood loss anemia Current Visit: No Status: Acute (3) Liver cirrhosis, alcoholic Current Visit: No Status: Acute (4) Alcohol dependence Current Visit: Yes Status: Chronic (5) Hyperkalemia Current Visit: Yes Status: Resolved (6) Portal venous hypertension Current Visit: No Status: Chronic (7) Portal hypertensive gastropathy Current Visit: No Status: Chronic (8) Tobacco abuse Current Visit: No Status: Chronic - Time Spent with Patient Total time spent is greater than 50% in coordination of care (as documented) at patient's floor/unit and/or counseling patient: Internal Medicine: Result - Labs CBC & Chem 7: 06/07/18 14:50 06/07/18 05:34 Labs: Short CBC 06/06/18 06/07/18 06/07/18 Range/Units 21:00 05:34 14:50 WBC 7.6 (4.3-11.1) K/mcL Hgb 7.3 L 9.1 L D 9.4 L (12.9-16.9) g/dL Hct 22.7 L 28.1 L 28.3 L (37.5-50.1) % Plt Count 85 L (140-400) K/mcL BMP 06/07/18 05:34 Sodium 138 Potassium 3.9 Chloride 112 H Carbon Dioxide 21 L BUN 26 H Creatinine 0.96 Glucose 127 H Calcium 7.6 L Liver Function 06/07/18 Range/Units 05:34 Total Bilirubin 3.1 H (0.3-1.0) mg/dL AST 42 H (13-39) Units/L ALT 19 (7-52) Units/L Alkaline Phosphatase 154 H (34-104) Units/L Albumin 2.6 L (3.5-5.7) g/dL - ABG Interpretation ABG results: PT/INR, D-dimer PT 16.0 Seconds (9.4-12.1) H 06/05/18 16:52 - Impressions Impressions Abdomen/Pelvis Ultrasound 06/07/18 09:00 IMPRESSION: The TIPS stent appears patent, though decreased velocity suggests slow flow. D/ / Joe Marin MD / Joe Marin MD Interpreting Provider: Joe Marin MD Consult Discharge Plan - Plan Referrals: Miguel Khan DO [Primary Care Provider] - 06/21/18 9:30 am (Dr. Toney is out of the office the week of 06-13 [facility] 06-20-18) - Attending Attestation I examined this patient and my medical decision-making was reviewed with the Resident Physician on 06/06/18. I agree with the documented findings, disposition and treatment plan as described except to the extent set forth mary estevez. Mr Wu is currently admitted for acute UGI bleed due to esophageal varices. He remains moderate to high risk due to potential for worsening clinical status. Mr Wu is doing OK. He started clear liquids today. Octreotide still running. No fever or chills. Has been up and walking around. No CP or SOB. Exam alert comfortable Mucus membranes dry Heart reg No wheeze Abd soft No edema I/P 1. Acute esophageal bleed - due to variceal - clipped 2. Anemia - H/H stable Further diagnoses and plan as above. <Tripp Gaviria - Last Filed: 06/07/18 20:16> Hospitalist Progress Note - Encounter Date of Encounter: 06/07/18 Time of Encounter: 10:00 - Subjective Interval History: Mr. Bernardo is a 58-year-old male with a past medical history of liver cirrhosis (meld score 13), variceal bleeding status post banding was initially admitted for multiple episodes of hematemesis. Patient was also found to be hypotensive on admission, with Hb 6.2. He is currently status post 4 units of RBCs also underwent a banding procedure 2 days ago. Patient tolerated the procedure well. Most recent hemoglobin is 9.4. Currently on rocephin for SBP prophylaxis, Ativan for [facility] protocol. - Exam Vitals: Temp Pulse Resp BP Pulse Ox 98.7 F 60 18 157/89 96 06/07/18 06:41 06/07/18 06:41 06/07/18 06:41 06/07/18 06:41 06/07/18 06:41 Exam: General appearance: Present: cooperative, A&O X 3, no acute distress, awake, pleasant Head exam: Present: atraumatic, normocephalic Eye exam: Present: EOMI, conjuntiva pink, sclera anicteric ENT exam: Present: mucous membranes dry Neck exam: Present: supple, trachea midline. Absent: lymphadenopathy Respiratory exam: CTAB. Absent: accessory muscle use, rhonchi, wheezes Cardiovascular exam: Present: RRR, +S1, +S2. Absent: diastolic murmur, gallop, rubs, systolic murmur GI/Abdominal exam: Present: Hepatomegaly, normal bowel sounds, soft, no peritoneal signs. Absent: distended, tenderness Extremities exam: Present: warm, radial pulses palpable and symmetrical. Absent: calf tenderness, cyanotic, pedal edema Neurological exam: Present: CN II-XII intact, oriented X3, no focal deficits. Absent: facial droop, speech deficit Psychiatric exam: Present: normal affect, normal mood Skin exam: Present: dry, warm, no rash - Assessment and Plan (1) Bleeding esophageal varices in alcoholic cirrhosis Current Visit: Yes Status: Chronic Assessment and Plan: Secondary bleeding esophageal varices and Chantelle Naik tear Presented with multiple episodes of hematemesis, as well as melena for the last week Patient vomited approximately 1.5 L of bloody vomit at home Presented to the ER hypotensive with systolic blood pressure in the 70s with a hemoglobin of 6.2 Was transfused with 4 units of packed red blood cells and was given IV fluids EGD performed 06/05/18 by GI, 1 esophageal varices was banded, and epinephrine was administered for Chantelle-Naik tear Large clot was also found in the stomach Continue IV octreotide and IV Protonix, Zofran when necessary. Plans to discontinue IV octreotide tomorrow Rocephin 1 g IV daily for SBP prophylaxis he currently being transitioned from ice chips to clear liquid diet and advance as tolerated Nothing by mouth except meds after midnight pending right upper quadrant TIPS ultrasound, will advance diet once cleared by GI (2) Acute blood loss anemia Current Visit: No Status: Acute Assessment and Plan: - Secondary to his multiple episodes of hematemesis. And had a total of 1.4 L of hematemesis, and his hemoglobin was 6.2, currently status post 4 units of pRBCs. Hb has gone up to 9.1. He also underwent variceal banding procedure 2 days ago. - Continue to monitor (3) Liver cirrhosis, alcoholic Current Visit: No Status: Acute Assessment and Plan: - History of cirrhosis with meld score of 13. takes Corgard and Aldactone at home - Most recent abdominal pelvis ultrasound showed that his stem cell stent was patent. -Resume home meds when patient able to tolerate by mouth intake. (4) Alcohol dependence Current Visit: Yes Status: Chronic Assessment and Plan: Patient has a known history of alcohol abuse He states that his last drink was 06/04/18 Continue Ativan per [facility] protocol Aspiration precautions (5) Hyperkalemia Current Visit: Yes Status: Resolved Assessment and Plan: Resolved Continue monitoring - Time Spent with Patient Total time spent is greater than 50% in coordination of care (as documented) at patient's floor/unit and/or counseling patient: Internal Medicine: Result - Labs CBC & Chem 7: 06/07/18 14:50 06/07/18 05:34 Labs: Short CBC 06/06/18 06/06/18 06/07/18 Range/Units 15:00 21:00 05:34 WBC 7.6 (4.3-11.1) K/mcL Hgb 8.0 L 7.3 L 9.1 L D (12.9-16.9) g/dL Hct 25.0 L 22.7 L 28.1 L (37.5-50.1) % Plt Count 85 L (140-400) K/mcL BMP 06/07/18 05:34 Sodium 138 Potassium 3.9 Chloride 112 H Carbon Dioxide 21 L BUN 26 H Creatinine 0.96 Glucose 127 H Calcium 7.6 L Liver Function 06/07/18 Range/Units 05:34 Total Bilirubin 3.1 H (0.3-1.0) mg/dL AST 42 H (13-39) Units/L ALT 19 (7-52) Units/L Alkaline Phosphatase 154 H (34-104) Units/L Albumin 2.6 L (3.5-5.7) g/dL - ABG Interpretation ABG results: PT/INR, D-dimer PT 16.0 Seconds (9.4-12.1) H 06/05/18 16:52 <Brando Castaneda - Last Filed: 06/07/18 16:44> (3) Liver cirrhosis, alcoholic Qualifiers: Ascites presence: without ascites Qualified Code(s): K70.30 - Alcoholic cirrhosis of liver without ascites (4) Alcohol dependence Qualifiers: Substance use status: other alcohol-induced disorder Qualified Code(s): F10.288 - Alcohol dependence with other alcohol-induced disorder <Tripp Gaviria - Last Filed: 06/07/18 20:16> (3) Liver cirrhosis, alcoholic Qualifiers: Ascites presence: without ascites Qualified Code(s): K70.30 - Alcoholic cirrhosis of liver without ascites (4) Alcohol dependence Qualifiers: Substance use status: other alcohol-induced disorder Qualified Code(s): F10.288 - Alcohol dependence with other alcohol-induced disorder
[2018-06-07 15:03] LABS: Hematocrit 28.3 % (37.5-50.1); Hemoglobin 9.4 g/dL (12.9-16.9)
[2018-06-07 21:08] LABS: Hematocrit 27.9 % (37.5-50.1); Hemoglobin 9.1 g/dL (12.9-16.9)
[2018-06-08] MEDS: Octreotide 400 MCG in 0.9 % Sodium Chloride 100 ML IVC SCH ×2 (00:38→10:31)
[2018-06-08] MEDS: Pantoprazole 40 MG in 0.9 % Sodium Chloride Mini Bag 100 ML IVC SCH ×3 (01:53→07:05)
[2018-06-08] MEDS: Ondansetron 4 MG/2 ML VIAL IVP SCH ×3 (01:56→12:10)
[2018-06-08 04:49] LABS: Basophils # 0.1 K/mcL (0.0-0.2); Basophils % 0.8 %; Eosinophils # 0.2 K/mcL (0.0-0.6); Eosinophils % 3.4 %; Hematocrit 27.5 % (37.5-50.1); Hemoglobin 9.1 g/dL (12.9-16.9); Immature Granulocytes % 0.5 % (0-4); Immature Platelets 8.1 % (1.1-6.1); Lymphocytes # 0.9 K/mcL (0.6-4.6); Lymphocytes % 14.9 %; Mean Corpuscular HGB Conc 33.1 g/dL (31.6-35.5); Mean Corpuscular Hemoglobin 28.4 pg (28.0-33.3); Mean Corpuscular Volume 85.9 fL (83.0-100.0); Mean Platelet Volume 11.5 fL (9.4-12.4); Monocytes # 0.6 K/mcL (0.0-1.3); Monocytes % 9.6 %; Neutrophils # 4.4 K/mcL (1.6-8.9); Nucleated Red Blood Cells 0.3 /100 WBC (0); Red Cell Distribution Width 18.3 % (11.5-14.5); Segmented Neutrophils % 70.8 %
[2018-06-08 05:06] LABS: BUN/Creatinine Ratio 19 (6-26); Blood Urea Nitrogen 18 mg/dL (6-20); Calcium 7.7 mg/dL (8.6-10.3); Carbon Dioxide 21 mEq/L (23-29); Chloride 109 mEq/L (98-107); Glucose 123 mg/dL (70-105); Osmolality,Calculated 289 (280-300); Potassium 3.9 mEq/L (3.5-5.1); Sodium 138 mEq/L (136-145); eGFR For Non-African Americans > 60 (> 60)
[2018-06-08 05:16] LABS: Platelet Count 95 K/mcL (140-400)
[2018-06-08 05:52] LABS: Anisocytosis 2+ (Not Present); Hypochromasia Present (Not Present); Macrocytosis Present (Not Present); Platelet Estimate Decreased (Normal)
[2018-06-08 05:53] LABS: Polychromasia 1+ (Not Present)
--- NOTE | 2018-06-08 07:39 | Internal Med Progress Note ---
Hospitalist Progress Note - Subjective Interval History: 06/08 No acute events overnight. Patient's H&H is stable. The patient is s/p of 4 units of packed red blood cells. Is currently status post day 3 of banding pr edwin. Denies no acute distress. He continues to be octreotide drip I spoke to Dr. Farooq this morning about discontinuing his drip and he recommended that we should discontinue tomorrow. His beta kristin (nadolol) has been resumed. We holding off on his spironolactone because we will said he is, come by and evaluate the patient before making any further recommendations. he does not appear to be edematous this morning. 06/07 Mr. Bernardo is a 58-year-old male with a past medical history of liver cirrhosis (meld score 13), variceal bleeding status post banding was initially admitted f or multiple episodes of hematemesis. Patient was also found to be hypotensive on admission, with Hb 6.2. He is currently status post 4 units of RBCs also underwent a banding procedure 2 days ago. Patient tolerated the procedure well. Most recent hemoglobin is 9.4. Currently on rocephin for SBP prophylaxis, Ativan for CIWA protocol. - Exam Vitals: Temp Pulse Resp BP Pulse Ox 98.7 F 61 20 136/72 94 06/08/18 03:30 06/08/18 03:30 06/08/18 03:30 06/08/18 03:30 06/08/18 03:30 Exam: General appearance: Present: cooperative, A&O X 3, no acute distress, awake, pleasant Head exam: Present: atraumatic, normocephalic Eye exam: Present: EOMI, conjuntiva pink, sclera anicteric ENT exam: Present: mucous membranes dry Neck exam: Present: supple, trachea midline. Absent: lymphadenopathy Respiratory exam: CTAB. Absent: accessory muscle use, rhonchi, wheezes Cardiovascular exam: Present: RRR, +S1, +S2. Absent: diastolic murmur, gallop, rubs, systolic murmur GI/Abdominal exam: Present: normal bowel sounds, soft, no peritoneal signs. Absent: distended, non-tender Extremities exam: Present: warm, radial pulses palpable and symmetrical. Absent: calf tenderness, cyanotic, pedal edema Neurological exam: Present: CN II-XII intact, oriented X3, no focal deficits. Absent: facial droop, speech deficit Psychiatric exam: Present: normal affect, normal mood Skin exam: Present: dry, warm, no rash - Assessment and Plan (1) Bleeding esophageal varices in alcoholic cirrhosis Current Visit: Yes Status: Chronic Assessment and Plan: - Likely due to his history of alcohol cirrhosis, and the fact that the patient continues to be a drinker, although he endorses that he has reduced his alcohol intake dramatically. Patient endorses that he has had 4 variceal banding procedures last year. He also had a TIPS procedure done on him about a year and a half ago. We have evaluated his stent yesterday and the ultrasound showed that his TIPS stent was pretty patent. -Is currently status post day 4 of his banding procedure - She continues to be on day 4 of IV octreotide. Discontinue tomorrow. Also on Rocephin 1 g IV daily for SBP prophylaxis. Also on IV protonix and Zofran - She has been transitioned from ice chips to clear liquid diet. We will advance him to solid diet if he tolerates. I (2) Acute blood loss anemia Current Visit: No Status: Acute Assessment and Plan: - Secondary to his multiple episodes of hematemesis. Apryl had a total of 1.4 L of hematemesis, and his hemoglobin was 6.2, currently status post 4 units of pRBCs. Hb has gone up to 9.1. He also underwent variceal banding procedure 2 days ago. Currently H&H stable - Continue to monitor (3) Liver cirrhosis, alcoholic Current Visit: No Status: Acute Assessment and Plan: - History of cirrhosis with MELD score of 13, and MAdrey's score of 25.3 . Underwent TIPS procedure a year and a half ago. takes Corgard (40mg) and Aldactone (100mg) at home - Has had 4 episodes of varicocele banding procedure done on him last year. - Most recent abdominal pelvis ultrasound showed that his TIPS stent was patent. -Resume home meds when patient able to tolerate by mouth intake. (4) Alcohol dependence Current Visit: Yes Status: Chronic Assessment and Plan: Patient has a known history of alcohol abuse He states that his last drink was 06/04/18 She does not on Cipro protocol because of no symptoms for alcohol withdrawal. (5) Hyperkalemia Current Visit: Yes Status: Resolved Assessment and Plan: Resolved Continue monitoring - Time Spent with Patient Total time spent is greater than 50% in coordination of care (as documented) at patient's floor/unit and/or counseling patient: Internal Medicine: Result - Labs CBC & Chem 7: 06/08/18 04:08 06/08/18 04:08 Labs: Short CBC 06/07/18 06/07/18 06/08/18 Range/Units 14:50 20:58 04:08 WBC 6.2 (4.3-11.1) K/mcL Hgb 9.4 L 9.1 L 9.1 L (12.9-16.9) g/dL Hct 28.3 L 27.9 L 27.5 L (37.5-50.1) % Plt Count 95 L (140-400) K/mcL Neutrophils # 4.4 (1.6-8.9) K/mcL BMP 06/08/18 04:08 Sodium 138 Potassium 3.9 Chloride 109 H Carbon Dioxide 21 L BUN 18 Creatinine 0.94 Glucose 123 H Calcium 7.7 L - ABG Interpretation ABG results: PT/INR, D-dimer PT 16.0 Seconds (9.4-12.1) H 06/05/18 16:52 - Impressions Impressions Abdomen/Pelvis Ultrasound 06/07/18 09:00 IMPRESSION: The TIPS stent appears patent, though decreased velocity suggests slow flow. D/ / Joe Marin MD / Joe Marin MD Interpreting Provider: Joe Marin MD Consult Discharge Plan - Plan Referrals: Miguel Khan DO [Primary Care Provider] - 06/21/18 9:30 am (Dr. Toney is out of the office the week of 06-13 [facility] 06-20-18) (3) Liver cirrhosis, alcoholic Qualifiers: Ascites presence: without ascites Qualified Code(s): K70.30 - Alcoholic cirrhosis of liver without ascites (4) Alcohol dependence Qualifiers: Substance use status: other alcohol-induced disorder Qualified Code(s): F10.288 - Alcohol dependence with other alcohol-induced disorder
[2018-06-08] MEDS: cefTRIAXone 1,000 MG in Water for inj. (sterile) 20 ML 10 ML IVP SCH (07:44)
--- NOTE | 2018-06-08 11:02 | Gastroenterology Progress Note ---
Date of Encounter: 06/08/18 Time of Encounter: 10:59 - Assessment and plan (1) Bleeding esophageal varices in alcoholic cirrhosis Status: Chronic Assessment and plan: Patient presented with hematemesis secondary to variceal bleeding. Underwent urgent endoscopy and large varices were encountered and banded. Patient has been on octreotide and PPI drip since the procedure, okay to discontinue. Continue not all, titrating to heart rate of 50-60 and systolic blood pressure of 100 to decrease risk of variceal rebleed. Patient has had TIPS procedure in the past and Doppler ultrasound reveals stent patency however some decreased velocity. Stable for discharge from a GI standpoint, follow-up as an outpatient in 1-2 weeks. (2) Liver cirrhosis, alcoholic Status: Acute Assessment and plan: On admission, meld score 12, child Alexandre class B. Decompensated cirrhosis with ascites and variceal bleeding as above. Bleeding has been treated as above. On exam patient still noted to have mild ascites. Recommend restarting home diuretic regimen. Patient received adequate SBP prophylaxis, as he has no history of SBP no indication for further antibiotic prophylaxis. Patient reports intermittent use of lactulose at home. He states that he normally has 2-3 soft bowel movements daily even without using lactulose that frequently. Given his underlying cirrhosis and history of TIPS procedure he is at high risk for hepatic encephalopathy. I explained this to the patient and recommend that he uses lactulose titrating to 2-3 soft bowel movements daily. I had a long and lyn discussion regarding his alcohol use and strongly encouraged complete cessation. Patient states that he frequently tries but has had issues with relapse. I did suggest that he pursue Alcoholics Anonymous to assist in his recovery. Qualifiers: Ascites presence: with ascites Qualified Code(s): K70.31 - Alcoholic cirrhosis of liver with ascites - Time Spent With Patient Total time spent is greater than 50% in coordination of care (as documented) at patient's floor/unit and/or counseling patient: - Subjective Interval history: Patient seen and examined at bedside. Patient states that he feels pretty good today. Reports mild abdominal swelling that is at baseline for him. He reports having good appetite, denies nausea, vomiting, diarrhea, hematemesis, hematochezia, melena. Patient states that he feels like he is back to normal. - Constitutional Vitals: Temp Pulse Resp BP Pulse Ox 98.6 F 57 20 128/71 99 10/30/18 07:42 06/08/18 10:32 06/08/18 10:32 06/08/18 07:42 06/08/18 10:32 General appearance: Present: A&O X 3, pleasant, no acute distress - Head Head exam: Present: atraumatic, normal inspection, normocephalic - Respiratory Respiratory exam: Present: CTAB. Absent: rales, rhonchi, wheezes - Cardiovascular Cardiovascular exam: Present: RRR. Absent: gallop, rubs, systolic murmur - GI/Abdominal GI/Abdominal exam: Present: distended (mild), normal bowel sounds, soft, no peritoneal signs. Absent: guarding, rigid, tenderness Additional comments: mild fluid wave - Neurological Exam Neurological exam: Present: alert, CN II-XII intact, oriented X3, no focal deficits Results - Labs CBC & Chem 7: 06/08/18 04:08 06/08/18 04:08 Labs: Last Result Calcium 7.7 mg/dL (8.6-10.3) L 06/08/18 04:08 Troponin I < 0.03 ng/mL (< 0.04) 06/05/18 16:52 Entire Visit Hgb 9.1 g/dL (12.9-16.9) L 06/08/18 04:08 Hct 27.5 % (37.5-50.1) L 06/08/18 04:08 PT 16.0 Seconds (9.4-12.1) H 06/05/18 16:52 Total Bilirubin 3.1 mg/dL (0.3-1.0) H 06/07/18 05:34 AST 42 Units/L (13-39) H 06/07/18 05:34 ALT 19 Units/L (7-52) 06/07/18 05:34 Lipase 45 Units/L (11-82) 06/05/18 16:52 - ABG ABG results: PT/INR, D-dimer PT 16.0 Seconds (9.4-12.1) H 06/05/18 16:52 - Impressions Impressions Abdomen/Pelvis Ultrasound 06/07/18 09:00 IMPRESSION: The TIPS stent appears patent, though decreased velocity suggests slow flow. D/ / Joe Marin MD / Joe Marin MD Interpreting Provider: Joe Marin MD Consult Discharge Plan - Plan Referrals: Chaz Valadez MD [Partnered Physician] - (sent web request on @ 1100) Miguel Khan DO [Primary Care Provider] - 06/21/18 9:30 am (Dr. Toney is out of the office the week of 06-13 [facility] 06-20-18)
--- NOTE | 2018-06-08 11:17 | Discharge Summary ---
<Christine Anderson - Last Filed: 06/08/18 13:12> - NOTES TO OUTPATIENT PROVIDER Notes to Outpatient Provider: Outpatient up titration of nadolol to goal of HR 50-60 and sbp 100. Follow up with GI in 1-2 weeks. - Discharge Diagnosis (1) Liver cirrhosis, alcoholic Status: Acute Qualifiers: Ascites presence: with ascites Qualified Code(s): K70.31 - Alcoholic cirrhosis of liver with ascites (2) Bleeding esophageal varices in alcoholic cirrhosis Status: Chronic Hospital course: Mr. Wu is a 58 year old male - Time Spent with Patient Total time spent providing and/or coordinating discharge services: Less than 30 minutes - Discharge Medications Home Medications: Furosemide [Lasix] 40 mg PO DAILY 10/13/17 [History] Omeprazole [PriLOSEC] 40 mg PO DAILY 10/13/17 [History] Spironolactone [Aldactone] 100 mg PO DAILY 10/13/17 [History] Nadolol [Corgard] 40 mg PO DAILY 30 Days #30 tablet 10/17/17 [Rx] Magnesium Oxide [Magnesium] 400 mg PO DAILY 04/29/18 [History] Calcium Carbonate [Tums] 1,000 mg PO Q4HR PRN 06/06/18 [History] Cimetidine 200 mg PO DAILY PRN 06/06/18 [History] Folic Acid 1 mg PO DAILY 06/06/18 [History] Multivit-Min/FA/Lycopen/Lutein [A Thru Z Select Multivit Tab] 1 each PO DAILY 06/06/18 [History] Allergies/Adverse Reactions: Allergy/AdvReac Type Severity Reaction Status Date / Time No Known Allergies Allergy Verified 04/29/18 09:35 Date of admission: 06/05/18 18:35 Primary care physician: Chaz Khan DO Consults: 06/05/18 16:54 Consult to Gastroenterology [CONS] Stat Consulting Provider: Gastroenterology Roberta Reason for Consult: upper GI active bleed Time Notified: 16:30 Call Completed: Yes 06/06/18 14:22 Consult to Stringed Instrument Tuner [CONS] Routine Reason for SW Consult: ETOH abuse - Constitutional Vitals: Temp Pulse Resp BP Pulse Ox 98.7 F 59 20 143/86 96 06/08/18 11:34 06/08/18 11:34 06/08/18 11:34 06/08/18 11:34 06/08/18 11:34 - Patient Status Disposition: Home, Self-Care Condition: Good Overall status at discharge: patient is back to baseline - Discharge Instructions Follow Up With: Chaz Valadez MD [Partnered Physician] - (sent web request on @ 1100) Miguel Khan DO [Primary Care Provider] - 06/21/18 9:30 am (Dr. Toney is out of the office the week of 06-13 [facility] 06-20-18) Additional Instructions: - We will up with GI in 1-2 weeks from now. -Consider pursuing alcoholic anonymous helping with alcohol cessation. -Go to the ED immediately if noticing more episodes of bloody vomiting or blood in the stools - Diet and Activity Activity: increase activity as tolerated Diet: advance to your usual diet - Attending Attestation I examined this patient and my medical decision-making was reviewed with the Resident Physician Dr Gaviria. I agree with the documented findings, disposition and treatment plan as described except to the extent set forth below/addl details below Mr Wu was admitted for acute UGI bleed due to esophageal varices. He underwent EGD with variceal clipping. His hgb remained stable, he had no further bleeding, and tolerated advancing diet. He is medically cleared for dc to home as recommended by GI team. He will fu outpt in 1-2 weeks. awake, alert, feeling back to baseline and wanting to go home. No nausea, emesis, no signs of bleeding, brown bm this morning. Denies abd pain, chest pain, lightheadedness, dizziness or syncope. etoh use cessation recommended. gen- alert, awake,appears stated age eyes- pupils equal round, no conjunctival pallor cv- reg rate and rhythm, normal s1,s2, no murmurs appreciated lungs- ctabl, no wheezing, rhonchi or crackles abd- soft, non tender, non distended, + bs neuro- AAOx3 skin- no pallor or jaundice A/P Acute esophageal bleed due to variceal and MW tear - 1 esophageal varice was banded, and epinephrine was administered for Chantelle-Naik tear, fu gi outpt in 1-2 weeks, cont oral PPI on dc, etoh cessation education provided, nadolol may resume on dc with goal HR 50-60 and goal sbp 100 -up titrate as able outpt, may advance diet as tolerated as per gi orders Acute Blood Loss Anemia 2/2 above , stable- s/p prbc transfusion this admission, hgb stable Thrombocytopenia likely 2/2 chronic liver disease, stable- no active bleeding on dc, hgb stable, etoh cessation education Further diagnoses and plan as per resident <Tripp Gaviria - Last Filed: 06/08/18 17:43> Date of Encounter: 06/08/18 Time of Encounter: 08:30 - Discharge Diagnosis (1) Liver cirrhosis, alcoholic Priority: Secondary Status: Acute Qualifiers: Ascites presence: with ascites Qualified Code(s): K70.31 - Alcoholic cirrhosis of liver with ascites (2) Bleeding esophageal varices in alcoholic cirrhosis Priority: Primary Status: Chronic Hospital course: Mr. Wu is a 58 year old male the past medical history of cirrhosis (MELD Score : 13), was admitted to the floor because multiple episodes of hematemesis. Patient has an extensive history of hematemesis and has had 4 esophageal banding procedures in the last one year. Patient also had a TIPS procedure a year and a half ago. He also has a history of extensive alcohol abuse but endorses that he has decreased amount of alcohol he drinks now. Patient had acute blood loss anemia and came in with hemoglobin of 6.2, given 4 units of packed RBC over the course of hospital stay, most recent hemoglobin was 9.1. During the admission, patient underwent urgent endoscopy and large varices were encountered and banded. Patient has been on octreotide and PPI drip ever since the procedure. He was also on Rocephin for SBP prophylaxis. Owing to is repeated episode of variceal bleeding, we ultrasound his belly which showed patency of his stent from TIPS. Has been deemed stable for discharge from the GI point of view. He has been restarted on his home medications Nadalol 40 mgPO , and Aldactone 100mg for his Cirrhosis. Due to his history of TIPS procedure and underlying cirrhosis patient was recommended by GI that he uses lactulose titrating to 2-3 soft bowel movements daily. Patient needs to follow-up GI in 1-2 weeks from now. - Time Spent with Patient Total time spent providing and/or coordinating discharge services: Date of admission: 06/05/18 18:35 Primary care physician: Chaz Khan DO Consults: 06/05/18 16:54 Consult to Gastroenterology [CONS] Stat Consulting Provider: Roselyn Granados Reason for Consult: upper GI active bleed Time Notified: 16:30 Call Completed: Yes 06/06/18 14:22 Consult to Stringed Instrument Tuner [CONS] Routine Reason for SW Consult: ETOH abuse - Constitutional Vitals: Temp Pulse Resp BP Pulse Ox 98.6 F 57 20 128/71 99 06/08/18 07:42 06/08/18 10:32 06/08/18 10:32 06/08/18 07:42 06/08/18 10:32 General appearance: Present: A&O X 3, pleasant Exam: as below - Head Head exam: Present: atraumatic, normal inspection, normocephalic - Respiratory Respiratory exam: Present: CTAB (no rales or ronchi) - Cardiovascular Cardiovascular exam: Present: RRR, +S1, +S2 - GI/Abdominal GI/Abdominal exam: Present: distended (mildly, no guaring or rebound tenderness)
[2018-06-08 11:37] VITALS: BP 143/86
--- NOTE | 2018-06-11 18:20 | Electrocardiograph Report ---
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
== END 2018-06-08 12:36 | disposition home or self-care (01) | DRG 432 ==
LOC: EMEROOARM 16:25 → ICNU 18:15 → SUATTDRO 18:35 → ICNU 18:35 → 2NNU 06-06 18:41
PROVIDERS: ADMIT Internal Medicine Nephrology; ATTEND Internal Medicine